=== PATIENT | male | born 1965 | race Caucasian/White ===

== ENCOUNTER 2017-08-20 09:23 | Day surgery (SDC) | payer BC ==
[2017-08-19 12:51] VITALS: BMI 31.8
[2017-08-20 09:38] LABS: HEMATOCRIT 42.7 % (35.4-49); MCH 28.9 pg (25.7-33.7); MCHC 32.7 g/dl (32.0-35.9); MEAN CELL VOLUME 88.2 fl (80-96); MEAN PLT VOLUME 7.6 fl (7.5-11.1); PLATELET COUNT 229 K/MM3 (134-434); RBC 4.84 M/mm3 (4.00-5.60); RDW 13.7 % (11.9-15.9); WHITE BLOOD COUNT 8.3 K/mm3 (4.0-10.0)
[2017-08-20 10:15] LABS: INR 0.98 (0.82-1.09); PROTHROMBIN TIME (PATIENT) 11.1 SEC (9.98-11.88)
[2017-08-20 10:21] VITALS: TEMP 98.5
[2017-08-20 16:12] VITALS: BP 135/75; PULSE 67
--- NOTE | 2017-08-21 17:25 | PATH ---
Surgical Pathology Report Patient Name: PLACIDO SCHROEDER [facility]. Rec. #: [id number] /Age/Gender: 1965 (Age: 52) / M Account: [id number] Location: RADIOLOGY CAT S Taken: 08/20/2017 Received: 08/20/2017 Reported: 08/21/2017 Physicians: Alexey Ewing M.D. Specimen(s) Received LIVER BIOPSY Clinical History 52-year-old male with history of GB cancer status post resection now with liver mass Final Diagnosis LIVER, BIOPSY: ADENOCARCINOMA, MODERATELY DIFFERENTIATED, SEE COMMENT. Comment: Immunohistochemical stains performed and interpreted at [facility] show the tumor is positive for CK7 and CK20, compatible with known history of gallbladder carcinoma. Suggest clinical/radiologic correlation. Findings discussed with Dr. Kc. Electronically Signed Lisette Eddy M.D. Addendum Reported: 09/13/2017 Addendum Diagnosis PD-L1 performed and reported by [facility], [place], [place] ([id number]) shows the following: RESULTS: No PD-L1 expression Tumor proportion score (TPS) results: 0% See [facility] report ([id number]) for additional details. Lisette Eddy M.D. Addendum Reported: 09/16/2017 Addendum Diagnosis Immunohistochemical stains for MisMatch Repair Protein Analysis performed at [facility] in [place], [place] ([id number]) and interpreted at [facility] show the following: RESULTS: HMLH-1 INTACT NUCLEAR EXPRESSION HMSH-2 INTACT NUCLEAR EXPRESSION HMSH-6 INTACT NUCLEAR EXPRESSION PMS2 INTACT NUCLEAR EXPRESSION INTERPRETATION: No loss of nuclear expression of MMR proteins: low probability of microsatellite instability-high (MSI-H). Limited specimen for the interpretation (few glands). Suggest clinical/radiologic correlation. Lisette Eddy M.D. Gross Description Received in formalin labeled "liver tissue," are 2 peña, cylindrical portions of soft tissue measuring 1.4 and 1.6 cm in length and averaging 0.1 cm in diameter. The specimens are submitted in toto in one cassette. 08/20/201708/20/2017
== END 2017-08-20 16:15 | disposition home or self-care (01) ==
LOC: JRADIR 09:23
PROVIDERS: ATTEND Internal Medicine Hematology & Oncology
PROC: BF45ZZZ Ultrasonography of Liver (ICD-10-PCS; principal; 2017-08-20)
PROC: 0FB03ZX Excision of Liver, Percutaneous Approach, Diagnostic (ICD-10-PCS; 2017-08-20)
DX: C22.7 Other specified carcinomas of liver (principal); Z85.89 Personal history of malignant neoplasm of other organs and systems
CPT/HCPCS: 36415; 74150-TC; 76942-TC; 85027; 85610; 87899; 88305-TC; 88341-TC; 88342-TC

== ENCOUNTER 2017-10-14 07:25 | Day surgery (SDC) | payer BC ==
[~2017-10-14 07:25] MED LIST: DEXAMETHASONE SOD PHOSPHATE 10 MG/1 ML VIAL IVPUSH ONE; FOSAPREPITANT DIMEGLUMINE 150 MG in SODIUM CHLORIDE 150 ML IVPB ONE; GEMCITABINE HCL IV ONE; MAGNESIUM SULFATE IVPB ONE; MANNITOL IVPB ONE; PALONOSETRON HCL 0.25 MG/5 ML VIAL IVPUSH ONE; POTASSIUM CHLORIDE IVPB ONE; SODIUM CHLORIDE 1,000 ML IV ONE; SODIUM CHLORIDE IV ONE; [UNRECOGNIZED DRUG - OTHER] IVPB ONE
[2017-10-14] MEDS ORDERED: MAGNESIUM SULFATE IVPB ONE (08:00)
[2017-10-14] MEDS ORDERED: [UNRECOGNIZED DRUG - OTHER] IVPB ONE (08:00)
[2017-10-14] MEDS ORDERED: MANNITOL IVPB ONE (08:00)
[2017-10-14] MEDS ORDERED: POTASSIUM CHLORIDE IVPB ONE (08:00)
[2017-10-14] MEDS ORDERED: PALONOSETRON HCL 0.25 MG/5 ML VIAL IVPUSH ONE (10:00)
[2017-10-14] MEDS ORDERED: FOSAPREPITANT DIMEGLUMINE 150 MG in SODIUM CHLORIDE 150 ML IVPB ONE (10:00)
[2017-10-14] MEDS ORDERED: DEXAMETHASONE SOD PHOSPHATE 10 MG/1 ML VIAL IVPUSH ONE (10:00)
[2017-10-14] MEDS ORDERED: GEMCITABINE HCL IV ONE (11:00)
[2017-10-14] MEDS ORDERED: SODIUM CHLORIDE IV ONE (11:00)
[2017-10-14] MEDS ORDERED: SODIUM CHLORIDE 1,000 ML IV ONE (11:30)
[2017-10-14 11:34] LABS: BASO % 1.2 % (0-2.0); HEMATOCRIT 42.2 % (35.4-49); HEMOGLOBIN 14.1 GM/dL (11.7-16.9); LYMPH % 17.5 % (8-40); MCH 29.1 pg (25.7-33.7); MCHC 33.3 g/dl (32.0-35.9); MEAN CELL VOLUME 87.3 fl (80-96); MEAN PLT VOLUME 8.3 fl (7.5-11.1); MONO % 6.4 % (3.8-10.2); NEUT % 70.9 % (42.8-82.8); PLATELET COUNT 217 K/MM3 (134-434); RBC 4.84 M/mm3 (4.00-5.60); RDW 13.6 % (11.9-15.9)
[2017-10-14 12:03] LABS: ALBUMIN 3.7 g/dl (3.4-5.0); ANION GAP 6 (8-16); BILIRUBIN,DIRECT < 0.2 mg/dL (0.0-0.2); BILIRUBIN,TOTAL 0.3 mg/dL (0.2-1.0); BLOOD UREA NITROGEN 13 mg/dL (7-18); CALCIUM 8.8 mg/dL (8.5-10.1); CHLORIDE 104 mmol/L (98-107); CO2 27 mmol/L (21-32); GLUCOSE,RANDOM 299 mg/dL (74-106); MAGNESIUM 2.1 mg/dL (1.8-2.4); POTASSIUM 4.2 mmol/L (3.5-5.1); SGOT/AST 14 U/L (15-37); SGPT/ALT 23 U/L (12-78); SODIUM 137 mmol/L (136-145); TOT PROT 7.7 g/dl (6.4-8.2)
[2017-10-14 12:04] LABS: ALK PHOS 122 U/L (45-117)
[2017-10-14 12:21] VITALS: BP 136/79; PULSE 75; TEMP 98.2
[2017-10-14] MEDS ORDERED: PALONOSETRON HCL 0.25 MG/5 ML VIAL IVPB ONE (14:45)
[2017-10-14] MEDS ORDERED: PORTA CATH FLUSH 10 ML IVPUSH ONE (19:02)
== END 2017-10-14 19:06 | disposition home or self-care (01) ==
LOC: JONCCHEMO 07:25 → J7W 12:02 → JONCCHEMO 19:06
PROVIDERS: ATTEND Internal Medicine Hematology & Oncology
PROC: 3E04305 Introduction of Other Antineoplastic into Central Vein, Percutaneous Approach (ICD-10-PCS; principal; 2017-10-14)
PROC: 3E043GC Introduction of Other Therapeutic Substance into Central Vein, Percutaneous Approach (ICD-10-PCS; 2017-10-14)
PROC: 3E0437Z Introduction of Electrolytic and Water Balance Substance into Central Vein, Percutaneous Approach (ICD-10-PCS; 2017-10-14)
DX: Z51.11 Encounter for antineoplastic chemotherapy (principal); C23 Malignant neoplasm of gallbladder
CPT/HCPCS: 36415; 80053; 80076; 83735; 85025; 86301; 96361; 96367; 96375; 96413; 96417; J1100; J1453; J2469

== ENCOUNTER 2017-10-15 07:33 | Day surgery (SDC) | payer BC ==
[2017-10-15 08:34] VITALS: BP 133/84; PULSE 102
[2017-10-15 08:37] VITALS: TEMP 98
[2017-10-15] MEDS ORDERED: D5-NS + 20 MEQ KCL - 20 MEQ/1,000 ML INFUS.BAG IV SCH (08:45)
[2017-10-15] MEDS ORDERED: MAGNESIUM SULF 50% (8.12 MEQ/2 ML-1 GM VIAL) IVPB SCH (08:45)
[2017-10-15] MEDS ORDERED: PORTA CATH FLUSH 10 ML IVPUSH ONE ×2 (09:56→13:59)
== END 2017-10-15 14:02 | disposition home or self-care (01) ==
LOC: JONCNONCHE 07:33 → J7W 08:27 → JONCNONCHE 14:02
PROVIDERS: ATTEND Internal Medicine Hematology & Oncology
PROC: 3E033GC Introduction of Other Therapeutic Substance into Peripheral Vein, Percutaneous Approach (ICD-10-PCS; principal; 2017-10-15)
PROC: 3E0337Z Introduction of Electrolytic and Water Balance Substance into Peripheral Vein, Percutaneous Approach (ICD-10-PCS; 2017-10-15)
DX: C23 Malignant neoplasm of gallbladder (principal)
CPT/HCPCS: 96360; 96361; 96374

== ENCOUNTER 2017-10-23 07:32 | Day surgery (SDC) | payer BC ==
[2017-10-23] MEDS ORDERED: MANNITOL IVPB ONE (10:00)
[2017-10-23] MEDS ORDERED: [UNRECOGNIZED DRUG - OTHER] IVPB ONE (10:00)
[2017-10-23] MEDS ORDERED: MAGNESIUM SULFATE IVPB ONE (10:00)
[2017-10-23] MEDS ORDERED: POTASSIUM CHLORIDE IVPB ONE (10:00)
[2017-10-23 10:48] LABS: BASO % 0.8 % (0-2.0); EOS % 6.8 % (0-4.5); HEMATOCRIT 38.5 % (35.4-49); HEMOGLOBIN 12.7 GM/dL (11.7-16.9); LYMPH % 20.5 % (8-40); MCH 29.1 pg (25.7-33.7); MEAN CELL VOLUME 88.1 fl (80-96); MONO % 6.8 % (3.8-10.2); NEUT % 65.1 % (42.8-82.8); PLATELET COUNT 137 K/MM3 (134-434); RBC 4.37 M/mm3 (4.00-5.60); RDW 13.5 % (11.9-15.9); WHITE BLOOD COUNT 6.8 K/mm3 (4.0-10.0)
[2017-10-23 11:13] LABS: ALBUMIN 3.6 g/dl (3.4-5.0); ALK PHOS 121 U/L (45-117); ANION GAP 9 (8-16); BILIRUBIN,DIRECT < 0.2 mg/dL (0.0-0.2); BILIRUBIN,TOTAL 0.2 mg/dL (0.2-1.0); BLOOD UREA NITROGEN 11 mg/dL (7-18); CALCIUM 8.2 mg/dL (8.5-10.1); CHLORIDE 103 mmol/L (98-107); CO2 26 mmol/L (21-32); CREATININE 0.8 mg/dL (0.7-1.3); GLUCOSE,RANDOM 263 mg/dL (74-106); MAGNESIUM 1.8 mg/dL (1.8-2.4); POTASSIUM 4.2 mmol/L (3.5-5.1); SGOT/AST 19 U/L (15-37); SGPT/ALT 32 U/L (12-78); SODIUM 138 mmol/L (136-145); TOT PROT 7.2 g/dl (6.4-8.2)
[2017-10-23] MEDS ORDERED: FOSAPREPITANT DIMEGLUMINE 150 MG in SODIUM CHLORIDE 150 ML IVPB ONE (12:00)
[2017-10-23] MEDS ORDERED: DEXAMETHASONE SOD PHOSPHATE 10 MG/1 ML VIAL IVPUSH ONE (12:00)
[2017-10-23] MEDS ORDERED: PALONOSETRON HCL 0.25 MG/5 ML VIAL IVPUSH ONE (12:00)
[2017-10-23] MEDS ORDERED: SODIUM CHLORIDE IV ONE ×2 (12:30→13:00)
[2017-10-23] MEDS ORDERED: CISPLATIN IV ONE (12:30)
[2017-10-23] MEDS ORDERED: GEMCITABINE HCL IV ONE (13:00)
[2017-10-23] MEDS ORDERED: SODIUM CHLORIDE 1,000 ML IV ONE (13:30)
[2017-10-23] MEDS ORDERED: D5-NS + 20 MEQ KCL - 20 MEQ/1,000 ML INFUS.BAG IV SCH (14:00)
[2017-10-23] MEDS ORDERED: MAGNESIUM SULF 50% (8.12 MEQ/2 ML-1 GM VIAL) IVPB ONE (14:00)
[2017-10-23] MEDS ORDERED: POTASSIUM CHLORIDE 20 MEQ, MAGNESIUM SULFATE 1 GM in DEXTROSE 5%-NORMAL SALINE 1,000 ML IVPB SCH (15:00)
[2017-10-23 18:55] VITALS: PULSE 68; TEMP 98.3
[2017-10-23 19:37] VITALS: BP 127/74
[2017-10-23] MEDS ORDERED: PORTA CATH FLUSH 10 ML IVPUSH ONE (19:37)
== END 2017-10-23 19:30 | disposition home or self-care (01) ==
LOC: JONCCHEMO 07:32 → J7W 11:48 → JONCCHEMO 19:30
PROVIDERS: ATTEND Internal Medicine Hematology & Oncology
DX: Z51.11 Encounter for antineoplastic chemotherapy (principal); C23 Malignant neoplasm of gallbladder
CPT/HCPCS: 36415; 80053; 80076; 83735; 85025; 96361; 96367; 96375; 96413; 96417; J1453; J2469

== ENCOUNTER 2017-10-24 07:28 | Day surgery (SDC) | payer BC ==
[2017-10-24] MEDS ORDERED: PEGFILGRASTIM 6 MG/0.6 ML DISP.SYRIN SQ ONE (10:00)
[2017-10-24] MEDS ORDERED: MAGNESIUM SULF 50% (8.12 MEQ/2 ML-1 GM VIAL) ONE (12:19)
[2017-10-24] MEDS ORDERED: POTASSIUM CHLORIDE IVPB ONE (12:30)
[2017-10-24] MEDS ORDERED: MAGNESIUM SULFATE IVPB ONE (12:30)
[2017-10-24] MEDS ORDERED: SODIUM CHLORIDE IVPB ONE (12:30)
[2017-10-24] MEDS ORDERED: PORTA CATH FLUSH 10 ML IVPUSH ONE (16:16)
[2017-10-24 16:50] VITALS: BP 126/70; PULSE 86; TEMP 98.7
== END 2017-10-24 17:05 | disposition home or self-care (01) ==
LOC: JONCNONCHE 07:28 → J7W 12:14 → JONCNONCHE 17:05
PROVIDERS: ATTEND Internal Medicine Hematology & Oncology
PROC: 3E013GC Introduction of Other Therapeutic Substance into Subcutaneous Tissue, Percutaneous Approach (ICD-10-PCS; principal; 2017-10-24)
PROC: 3E0337Z Introduction of Electrolytic and Water Balance Substance into Peripheral Vein, Percutaneous Approach (ICD-10-PCS; 2017-10-24)
DX: C23 Malignant neoplasm of gallbladder (principal); Z76.89 Persons encountering health services in other specified circumstances
CPT/HCPCS: 96360; 96361; 96372; J2505

== ENCOUNTER 2017-11-04 07:26 | Day surgery (SDC) | payer BC ==
[2017-11-04] MEDS ORDERED: MANNITOL IVPB ONE (08:00)
[2017-11-04] MEDS ORDERED: [UNRECOGNIZED DRUG - OTHER] IVPB ONE (08:00)
[2017-11-04] MEDS ORDERED: POTASSIUM CHLORIDE IVPB ONE (08:00)
[2017-11-04] MEDS ORDERED: MAGNESIUM SULFATE IVPB ONE (08:00)
[2017-11-04] MEDS ORDERED: FOSAPREPITANT DIMEGLUMINE 150 MG in SODIUM CHLORIDE 145 ML IVPB ONE (10:00)
[2017-11-04] MEDS ORDERED: PALONOSETRON HCL 0.25 MG/5 ML VIAL IVPUSH ONE (10:00)
[2017-11-04] MEDS ORDERED: DEXAMETHASONE SOD PHOSPHATE 10 MG/1 ML VIAL IVPUSH ONE (10:00)
[2017-11-04 10:05] LABS: BASO % 0.5 % (0-2.0); EOS % 0.6 % (0-4.5); HEMATOCRIT 38.5 % (35.4-49); HEMOGLOBIN 12.7 GM/dL (11.7-16.9); LYMPH % 11.5 % (8-40); MCH 29.2 pg (25.7-33.7); MEAN CELL VOLUME 88.4 fl (80-96); MEAN PLT VOLUME 7.8 fl (7.5-11.1); MONO % 5.6 % (3.8-10.2); NEUT % 81.8 % (42.8-82.8); PLATELET COUNT 192 K/MM3 (134-434); RBC 4.35 M/mm3 (4.00-5.60); RDW 13.6 % (11.9-15.9); WHITE BLOOD COUNT 15.7 K/mm3 (4.0-10.0)
[2017-11-04] MEDS ORDERED: SODIUM CHLORIDE IV ONE (10:30)
[2017-11-04] MEDS ORDERED: GEMCITABINE HCL IV ONE (10:30)
[2017-11-04 10:46] LABS: ALK PHOS 170 U/L (45-117); BILIRUBIN,TOTAL 0.3 mg/dL (0.2-1.0); CHLORIDE 102 mmol/L (98-107); POTASSIUM 4.1 mmol/L (3.5-5.1); SGPT/ALT 31 U/L (12-78); SODIUM 139 mmol/L (136-145)
[2017-11-04 10:52] LABS: ALBUMIN 3.6 g/dl (3.4-5.0); ANION GAP 10 (8-16); BILIRUBIN,DIRECT < 0.2 mg/dL (0.0-0.2); BLOOD UREA NITROGEN 13 mg/dL (7-18); CALCIUM 8.2 mg/dL (8.5-10.1); CO2 27 mmol/L (21-32); MAGNESIUM 1.6 mg/dL (1.8-2.4); SGOT/AST 17 U/L (15-37)
[2017-11-04 10:57] LABS: GLUCOSE,RANDOM 312 mg/dL (74-106)
[2017-11-04] MEDS ORDERED: SODIUM CHLORIDE 1,000 ML IV ONE (11:30)
[2017-11-04] MEDS ORDERED: INSULIN (NOVOLOG) ASPART 100 UNITS/ML 10ML VIAL SQ ONE (12:30)
[2017-11-04] MEDS ORDERED: PORTA CATH FLUSH 10 ML IVPUSH ONE (16:22)
[2017-11-04 16:23] VITALS: TEMP 98.5
[2017-11-04 16:48] VITALS: BP 110/67; PULSE 74
== END 2017-11-04 16:50 | disposition home or self-care (01) ==
LOC: JONCCHEMO 07:26 → J7W 10:38 → JONCCHEMO 16:50
PROVIDERS: ATTEND Internal Medicine Hematology & Oncology
DX: Z51.11 Encounter for antineoplastic chemotherapy (principal); C23 Malignant neoplasm of gallbladder; E11.9 Type 2 diabetes mellitus without complications; Z79.4 Long term (current) use of insulin
CPT/HCPCS: 36415; 80053; 80076; 82962; 83735; 85025; 96361; 96367; 96375; 96413; 96417; J1100; J1453; J2469

== ENCOUNTER 2017-11-05 07:35 | Day surgery (SDC) | payer BC ==
[2017-11-05 10:11] VITALS: TEMP 98.1
[2017-11-05] MEDS ORDERED: PORTA CATH FLUSH 10 ML IVPUSH ONE (10:11)
[2017-11-05] MEDS ORDERED: MAGNESIUM SULF 50% (8.12 MEQ/2 ML-1 GM VIAL) ONE (10:30)
[2017-11-05] MEDS ORDERED: POTASSIUM CHLORIDE IVPB SCH (10:45)
[2017-11-05] MEDS ORDERED: DEXTROSE 5% IVPB SCH (10:45)
[2017-11-05] MEDS ORDERED: NORMAL SALINE IVPB SCH (10:45)
[2017-11-05] MEDS ORDERED: MAGNESIUM SULFATE IVPB SCH (10:45)
[2017-11-05 14:57] VITALS: BP 128/67; PULSE 77
== END 2017-11-05 15:00 | disposition home or self-care (01) ==
LOC: JONCNONCHE 07:35 → J7W 09:56 → JONCNONCHE 15:00
PROVIDERS: ATTEND Internal Medicine Hematology & Oncology
PROC: 3E043GC Introduction of Other Therapeutic Substance into Central Vein, Percutaneous Approach (ICD-10-PCS; principal; 2017-11-05)
DX: C23 Malignant neoplasm of gallbladder (principal); E11.9 Type 2 diabetes mellitus without complications; Z79.4 Long term (current) use of insulin
CPT/HCPCS: 96365; 96366

== ENCOUNTER 2017-11-11 07:34 | Day surgery (SDC) | payer BC ==
[2017-11-11] MEDS ORDERED: [UNRECOGNIZED DRUG - OTHER] IVPB ONE (08:00)
[2017-11-11] MEDS ORDERED: MANNITOL IVPB ONE (08:00)
[2017-11-11] MEDS ORDERED: MAGNESIUM SULFATE IVPB ONE (08:00)
[2017-11-11] MEDS ORDERED: POTASSIUM CHLORIDE IVPB ONE (08:00)
[2017-11-11 09:30] VITALS: TEMP 97.9
[2017-11-11] MEDS ORDERED: PALONOSETRON HCL 0.25 MG/5 ML VIAL IVPUSH ONE (09:30)
[2017-11-11] MEDS ORDERED: FOSAPREPITANT DIMEGLUMINE 150 MG in SODIUM CHLORIDE 145 ML IVPB ONE (09:30)
[2017-11-11] MEDS ORDERED: DEXAMETHASONE SOD PHOSPHATE 10 MG/1 ML VIAL IVPUSH ONE (09:30)
[2017-11-11 09:49] LABS: HEMATOCRIT 39.1 % (35.4-49); HEMOGLOBIN 13.1 GM/dL (11.7-16.9); MCH 29.7 pg (25.7-33.7); MCHC 33.5 g/dl (32.0-35.9); MEAN CELL VOLUME 88.5 fl (80-96); MEAN PLT VOLUME 7.4 fl (7.5-11.1); PLATELET COUNT 354 K/MM3 (134-434); RBC 4.42 M/mm3 (4.00-5.60); RDW 14.1 % (11.9-15.9); WHITE BLOOD COUNT 11.3 K/mm3 (4.0-10.0)
[2017-11-11] MEDS ORDERED: GEMCITABINE HCL IV ONE (10:00)
[2017-11-11] MEDS ORDERED: SODIUM CHLORIDE IV ONE (10:00)
[2017-11-11 10:12] LABS: ALBUMIN 4.1 g/dl (3.4-5.0); ANION GAP 11 (8-16); BILIRUBIN,DIRECT < 0.2 mg/dL (0.0-0.2); BILIRUBIN,TOTAL 0.3 mg/dL (0.2-1.0); BLOOD UREA NITROGEN 13 mg/dL (7-18); CALCIUM 8.9 mg/dL (8.5-10.1); CHLORIDE 101 mmol/L (98-107); CO2 24 mmol/L (21-32); CREATININE 0.9 mg/dL (0.7-1.3); GLUCOSE,RANDOM 298 mg/dL (74-106); MAGNESIUM 1.7 mg/dL (1.8-2.4); POTASSIUM 4.4 mmol/L (3.5-5.1); SGOT/AST 19 U/L (15-37); SGPT/ALT 35 U/L (12-78); SODIUM 136 mmol/L (136-145); TOT PROT 7.7 g/dl (6.4-8.2)
[2017-11-11 10:13] LABS: ALK PHOS 150 U/L (45-117)
[2017-11-11 10:16] LABS: PLATELET ESTIMATE ADEQUATE
[2017-11-11] MEDS ORDERED: SODIUM CHLORIDE 1,000 ML IV ONE (11:00)
[2017-11-11] MEDS ORDERED: INSULIN SLIDING SCALE (NOVOLOG) 1 VIAL SQ ONE (13:00)
[2017-11-11] MEDS ORDERED: PORTA CATH FLUSH 10 ML IVPUSH ONE (15:30)
[2017-11-11 17:49] VITALS: BP 131/75; PULSE 77
== END 2017-11-11 17:52 | disposition home or self-care (01) ==
LOC: JONCCHEMO 07:34 → J7W 10:29 → JONCCHEMO 17:52
PROVIDERS: ATTEND Internal Medicine Hematology & Oncology
DX: Z51.11 Encounter for antineoplastic chemotherapy (principal); C23 Malignant neoplasm of gallbladder; E11.9 Type 2 diabetes mellitus without complications; Z79.4 Long term (current) use of insulin
CPT/HCPCS: 36415; 80053; 80076; 82962; 83735; 85025; 96361; 96367; 96375; 96413; 96417; J1100; J1453; J2469

== ENCOUNTER 2017-11-12 07:36 | Day surgery (SDC) | payer BC ==
[2017-11-12] MEDS ORDERED: PEGFILGRASTIM 6 MG/0.6 ML DISP.SYRIN SQ ONE (08:00)
[2017-11-12] MEDS ORDERED: SODIUM CHLORIDE 1,000 ML IV SCH (11:35)
[2017-11-12 13:01] VITALS: TEMP 98.4
[2017-11-12 16:54] VITALS: BP 112/75; PULSE 72
[2017-11-12] MEDS ORDERED: PORTA CATH FLUSH 10 ML IVPUSH ONE (16:56)
== END 2017-11-12 15:45 | disposition home or self-care (01) ==
LOC: JONCCHEMO 07:36 → J7W 11:41 → JONCCHEMO 15:45
PROVIDERS: ATTEND Internal Medicine Hematology & Oncology
PROC: 3E013GC Introduction of Other Therapeutic Substance into Subcutaneous Tissue, Percutaneous Approach (ICD-10-PCS; principal; 2017-11-12)
DX: C23 Malignant neoplasm of gallbladder (principal); E11.9 Type 2 diabetes mellitus without complications; Z79.4 Long term (current) use of insulin; Z76.89 Persons encountering health services in other specified circumstances
CPT/HCPCS: 96361; 96372; J2505

== ENCOUNTER 2017-12-04 07:36 | Day surgery (SDC) | payer BC ==
[2017-12-04] MEDS ORDERED: MAGNESIUM SULFATE IVPB ONE (09:00)
[2017-12-04] MEDS ORDERED: [UNRECOGNIZED DRUG - OTHER] IVPB ONE (09:00)
[2017-12-04] MEDS ORDERED: MANNITOL IVPB ONE (09:00)
[2017-12-04] MEDS ORDERED: POTASSIUM CHLORIDE IVPB ONE (09:00)
[2017-12-04 09:39] LABS: BASO % 1.4 % (0-2.0); EOS % 7.9 % (0-4.5); HEMATOCRIT 34.7 % (35.4-49); HEMOGLOBIN 11.6 GM/dL (11.7-16.9); LYMPH % 25.4 % (8-40); MCH 30.6 pg (25.7-33.7); MCHC 33.4 g/dl (32.0-35.9); MEAN CELL VOLUME 91.6 fl (80-96); MEAN PLT VOLUME 7.5 fl (7.5-11.1); MONO % 8.9 % (3.8-10.2); NEUT % 56.4 % (42.8-82.8); PLATELET COUNT 223 K/MM3 (134-434); RBC 3.79 M/mm3 (4.00-5.60); RDW 17.4 % (11.9-15.9)
[2017-12-04 10:02] LABS: ANION GAP 7 (8-16); BILIRUBIN,DIRECT < 0.2 mg/dL (0.0-0.2); BLOOD UREA NITROGEN 14 mg/dL (7-18); CALCIUM 8.6 mg/dL (8.5-10.1); CHLORIDE 105 mmol/L (98-107); CO2 27 mmol/L (21-32); CREATININE 0.8 mg/dL (0.7-1.3); GLUCOSE,RANDOM 109 mg/dL (74-106); MAGNESIUM 1.8 mg/dL (1.8-2.4); POTASSIUM 4.1 mmol/L (3.5-5.1); SGOT/AST 19 U/L (15-37); SGPT/ALT 24 U/L (12-78); SODIUM 139 mmol/L (136-145)
[2017-12-04 10:03] LABS: ALK PHOS 118 U/L (45-117); BILIRUBIN,TOTAL 0.4 mg/dL (0.2-1.0); TOT PROT 7.5 g/dl (6.4-8.2)
[2017-12-04] MEDS ORDERED: PALONOSETRON HCL 0.25 MG/5 ML VIAL IVPUSH ONE (11:00)
[2017-12-04] MEDS ORDERED: FOSAPREPITANT DIMEGLUMINE 150 MG in SODIUM CHLORIDE 150 ML IVPB ONE (11:00)
[2017-12-04] MEDS ORDERED: DEXAMETHASONE SOD PHOSPHATE 10 MG/1 ML VIAL IVPUSH ONE (11:00)
[2017-12-04] MEDS ORDERED: GEMCITABINE HCL IV ONE (12:00)
[2017-12-04] MEDS ORDERED: SODIUM CHLORIDE IV ONE (12:00)
[2017-12-04] MEDS ORDERED: SODIUM CHLORIDE 1,000 ML IV ONE (16:00)
[2017-12-04 18:57] VITALS: TEMP 97.9
[2017-12-04 19:04] VITALS: BP 134/75; PULSE 81
[2017-12-04] MEDS ORDERED: PORTA CATH FLUSH 10 ML IVPUSH ONE (19:04)
== END 2017-12-04 18:20 | disposition home or self-care (01) ==
LOC: JONCCHEMO 07:36 → J7W 10:12 → JONCCHEMO 18:20
PROVIDERS: ATTEND Internal Medicine Hematology & Oncology
PROC: 3E04305 Introduction of Other Antineoplastic into Central Vein, Percutaneous Approach (ICD-10-PCS; principal; 2017-12-04)
PROC: 3E043GC Introduction of Other Therapeutic Substance into Central Vein, Percutaneous Approach (ICD-10-PCS; 2017-12-04)
PROC: 3E0437Z Introduction of Electrolytic and Water Balance Substance into Central Vein, Percutaneous Approach (ICD-10-PCS; 2017-12-04)
DX: Z51.11 Encounter for antineoplastic chemotherapy (principal); C23 Malignant neoplasm of gallbladder
CPT/HCPCS: 36415; 80053; 80076; 83735; 85025; 96361; 96367; 96375; 96413; 96417; J1100; J1453; J2469

== ENCOUNTER 2017-12-05 07:31 | Day surgery (SDC) | payer BC ==
[2017-12-05] MEDS ORDERED: PEGFILGRASTIM 6 MG/0.6 ML DISP.SYRIN SQ ONE (10:00)
[2017-12-05 18:35] VITALS: TEMP 97.5
[2017-12-05 18:36] VITALS: BP 133/72; PULSE 76
== END 2017-12-05 18:39 | disposition home or self-care (01) ==
LOC: JONCCHEMO 07:31
PROVIDERS: ATTEND Internal Medicine Hematology & Oncology
PROC: 3E013GC Introduction of Other Therapeutic Substance into Subcutaneous Tissue, Percutaneous Approach (ICD-10-PCS; principal; 2017-12-05)
DX: C23 Malignant neoplasm of gallbladder (principal)
CPT/HCPCS: 96372; J2505

== ENCOUNTER 2017-12-16 07:35 | Day surgery (SDC) | payer BC ==
[2017-12-16] MEDS ORDERED: POTASSIUM CHLORIDE IVPB ONE (08:00)
[2017-12-16] MEDS ORDERED: MAGNESIUM SULFATE IVPB ONE (08:00)
[2017-12-16] MEDS ORDERED: [UNRECOGNIZED DRUG - OTHER] IVPB ONE (08:00)
[2017-12-16] MEDS ORDERED: MANNITOL IVPB ONE (08:00)
[2017-12-16 09:31] LABS: BASO % 0.6 % (0-2.0); EOS % 1.1 % (0-4.5); HEMATOCRIT 33.5 % (35.4-49); HEMOGLOBIN 11.6 GM/dL (11.7-16.9); MCH 32.1 pg (25.7-33.7); MCHC 34.5 g/dl (32.0-35.9); MEAN CELL VOLUME 93.3 fl (80-96); MEAN PLT VOLUME 7.6 fl (7.5-11.1); MONO % 7.5 % (3.8-10.2); NEUT % 79.8 % (42.8-82.8); PLATELET COUNT 189 K/MM3 (134-434); RDW 19.2 % (11.9-15.9); WHITE BLOOD COUNT 11.7 K/mm3 (4.0-10.0)
[2017-12-16 10:00] LABS: ALBUMIN 3.7 g/dl (3.4-5.0); ALK PHOS 155 U/L (45-117); ANION GAP 6 (8-16); BILIRUBIN,DIRECT < 0.2 mg/dL (0.0-0.2); BILIRUBIN,TOTAL 0.3 mg/dL (0.2-1.0); BLOOD UREA NITROGEN 11 mg/dL (7-18); CHLORIDE 108 mmol/L (98-107); CO2 25 mmol/L (21-32); CREATININE 0.8 mg/dL (0.7-1.3); GLUCOSE,RANDOM 113 mg/dL (74-106); MAGNESIUM 1.7 mg/dL (1.8-2.4); POTASSIUM 4.1 mmol/L (3.5-5.1); SGOT/AST 16 U/L (15-37); SGPT/ALT 21 U/L (12-78); SODIUM 139 mmol/L (136-145); TOT PROT 6.9 g/dl (6.4-8.2)
[2017-12-16] MEDS ORDERED: DEXAMETHASONE SOD PHOSPHATE 10 MG/1 ML VIAL IVPUSH ONE (10:00)
[2017-12-16] MEDS ORDERED: PALONOSETRON HCL 0.25 MG/5 ML VIAL IVPUSH ONE (10:00)
[2017-12-16] MEDS ORDERED: FOSAPREPITANT DIMEGLUMINE 150 MG in SODIUM CHLORIDE 150 ML IVPB ONE (10:00)
[2017-12-16] MEDS ORDERED: SODIUM CHLORIDE IV ONE (11:00)
[2017-12-16] MEDS ORDERED: GEMCITABINE HCL IV ONE (11:00)
[2017-12-16] MEDS ORDERED: SODIUM CHLORIDE 1,000 ML IV ONE (11:30)
[2017-12-16 17:51] VITALS: TEMP 97.8
[2017-12-16 17:52] VITALS: BP 158/86; PULSE 86
== END 2017-12-16 17:50 | disposition home or self-care (01) ==
LOC: JONCCHEMO 07:35 → J7W 10:24 → JONCCHEMO 17:50
PROVIDERS: ATTEND Internal Medicine Hematology & Oncology
DX: Z51.11 Encounter for antineoplastic chemotherapy (principal); C23 Malignant neoplasm of gallbladder
CPT/HCPCS: 36415; 80053; 80076; 83735; 85025; 96361; 96367; 96375; 96413; 96417; J1100; J1453; J2469; J7030

== ENCOUNTER 2017-12-23 07:19 | Day surgery (SDC) | payer BC ==
[2017-12-23] MEDS ORDERED: MANNITOL IVPB ONE (08:00)
[2017-12-23] MEDS ORDERED: POTASSIUM CHLORIDE IVPB ONE (08:00)
[2017-12-23] MEDS ORDERED: MAGNESIUM SULFATE IVPB ONE (08:00)
[2017-12-23] MEDS ORDERED: [UNRECOGNIZED DRUG - OTHER] IVPB ONE (08:00)
[2017-12-23] MEDS ORDERED: PALONOSETRON HCL 0.25 MG/5 ML VIAL IVPUSH ONE (09:30)
[2017-12-23] MEDS ORDERED: DEXAMETHASONE SOD PHOSPHATE 10 MG/1 ML VIAL IVPUSH ONE (09:30)
[2017-12-23] MEDS ORDERED: FOSAPREPITANT DIMEGLUMINE 150 MG in SODIUM CHLORIDE 145 ML IVPB ONE (09:30)
[2017-12-23 09:42] LABS: HEMATOCRIT 33.4 % (35.4-49); HEMOGLOBIN 11.5 GM/dL (11.7-16.9); MCH 32.3 pg (25.7-33.7); MCHC 34.5 g/dl (32.0-35.9); MEAN CELL VOLUME 93.5 fl (80-96); MEAN PLT VOLUME 6.9 fl (7.5-11.1); PLATELET COUNT 323 K/MM3 (134-434); RBC 3.58 M/mm3 (4.00-5.60); RDW 17.9 % (11.9-15.9); WHITE BLOOD COUNT 6.4 K/mm3 (4.0-10.0)
[2017-12-23] MEDS ORDERED: GEMCITABINE HCL IV ONE (10:00)
[2017-12-23] MEDS ORDERED: SODIUM CHLORIDE IV ONE (10:00)
[2017-12-23 10:07] LABS: ALBUMIN 3.9 g/dl (3.4-5.0); ANION GAP 5 (8-16); BLOOD UREA NITROGEN 11 mg/dL (7-18); CALCIUM 8.2 mg/dL (8.5-10.1); CHLORIDE 105 mmol/L (98-107); CO2 29 mmol/L (21-32); CREATININE 0.7 mg/dL (0.7-1.3); GLUCOSE,RANDOM 108 mg/dL (74-106); POTASSIUM 4.2 mmol/L (3.5-5.1); SGOT/AST 14 U/L (15-37); SGPT/ALT 20 U/L (12-78); SODIUM 139 mmol/L (136-145)
[2017-12-23 10:08] LABS: ALK PHOS 130 U/L (45-117); BILIRUBIN,TOTAL 0.3 mg/dL (0.2-1.0); TOT PROT 7.1 g/dl (6.4-8.2)
[2017-12-23 10:43] LABS: BILIRUBIN,DIRECT < 0.2 mg/dL (0.0-0.2); MAGNESIUM 1.7 mg/dL (1.8-2.4)
[2017-12-23] MEDS ORDERED: SODIUM CHLORIDE 1,000 ML IV ONE (11:00)
[2017-12-23 12:41] LABS: ANISOCYTOSIS 2+; MACROCYTOSIS 1+; PLATELET ESTIMATE NORMAL
[2017-12-23 17:50] VITALS: BP 139/80; PULSE 80; TEMP 97.8
== END 2017-12-23 16:10 | disposition home or self-care (01) ==
LOC: JONCCHEMO 07:19 → J7W 10:00 → JONCCHEMO 16:10
PROVIDERS: ATTEND Internal Medicine Hematology & Oncology
DX: Z51.11 Encounter for antineoplastic chemotherapy (principal); C23 Malignant neoplasm of gallbladder
CPT/HCPCS: 36415; 80053; 80076; 83735; 85025; 96361; 96366; 96367; 96375; 96413; 96417; J1100; J1453; J2469; J7030

== ENCOUNTER 2017-12-24 07:27 | Day surgery (SDC) | payer BC ==
[2017-12-24] MEDS ORDERED: PEGFILGRASTIM 6 MG/0.6 ML DISP.SYRIN SQ ONE (08:00)
[2017-12-24 18:19] VITALS: BP 132/76; PULSE 76; TEMP 98
== END 2017-12-24 18:15 | disposition home or self-care (01) ==
LOC: JONCCHEMO 07:27 → J7W 17:55 → JONCCHEMO 18:15
PROVIDERS: ATTEND Internal Medicine Hematology & Oncology
PROC: 3E013GC Introduction of Other Therapeutic Substance into Subcutaneous Tissue, Percutaneous Approach (ICD-10-PCS; principal; 2017-12-24)
DX: C23 Malignant neoplasm of gallbladder (principal); Z76.89 Persons encountering health services in other specified circumstances
CPT/HCPCS: 96372; J2505

== ENCOUNTER 2018-01-06 07:35 | Day surgery (SDC) | payer BC ==
[2018-01-06] MEDS ORDERED: POTASSIUM CHLORIDE IVPB ONE (08:00)
[2018-01-06] MEDS ORDERED: MAGNESIUM SULFATE IVPB ONE (08:00)
[2018-01-06] MEDS ORDERED: [UNRECOGNIZED DRUG - OTHER] IVPB ONE (08:00)
[2018-01-06] MEDS ORDERED: MANNITOL IVPB ONE (08:00)
[2018-01-06] MEDS ORDERED: FOSAPREPITANT DIMEGLUMINE 150 MG in SODIUM CHLORIDE 145 ML IVPB ONE (09:30)
[2018-01-06] MEDS ORDERED: DEXAMETHASONE SOD PHOSPHATE 10 MG/1 ML VIAL IVPUSH ONE (09:30)
[2018-01-06] MEDS ORDERED: PALONOSETRON HCL 0.25 MG/5 ML VIAL IVPUSH ONE (09:30)
[2018-01-06 09:50] LABS: BASO % 0.4 % (0-2.0); EOS % 1.1 % (0-4.5); HEMATOCRIT 33.7 % (35.4-49); HEMOGLOBIN 11.4 GM/dL (11.7-16.9); LYMPH % 11.1 % (8-40); MCH 32.7 pg (25.7-33.7); MCHC 33.8 g/dl (32.0-35.9); MEAN CELL VOLUME 96.9 fl (80-96); MEAN PLT VOLUME 7.6 fl (7.5-11.1); MONO % 10.1 % (3.8-10.2); NEUT % 77.3 % (42.8-82.8); PLATELET COUNT 289 K/MM3 (134-434); RBC 3.48 M/mm3 (4.00-5.60); RDW 20.6 % (11.9-15.9); WHITE BLOOD COUNT 14.1 K/mm3 (4.0-10.0)
[2018-01-06] MEDS ORDERED: GEMCITABINE HCL IV ONE (10:00)
[2018-01-06] MEDS ORDERED: SODIUM CHLORIDE IV ONE (10:00)
[2018-01-06] MEDS ORDERED: PORTA CATH FLUSH 10 ML IVPUSH ONE (10:30)
[2018-01-06 10:31] VITALS: TEMP 98
[2018-01-06] MEDS ORDERED: SODIUM CHLORIDE 1,000 ML IV ONE (11:00)
[2018-01-06 11:33] LABS: ALBUMIN 3.9 g/dl (3.4-5.0); BILIRUBIN,DIRECT < 0.2 mg/dL (0.0-0.2); BILIRUBIN,TOTAL 0.3 mg/dL (0.2-1.0); MAGNESIUM 1.7 mg/dL (1.8-2.4); SGOT/AST 17 U/L (15-37); SGPT/ALT 17 U/L (12-78); TOT PROT 7.4 g/dl (6.4-8.2)
[2018-01-06 11:34] LABS: ALK PHOS 182 U/L (45-117)
[2018-01-06 11:55] LABS: ALK PHOS 188 U/L (45-117); ANION GAP 12 (8-16); BILIRUBIN,TOTAL 0.2 mg/dL (0.2-1.0); BLOOD UREA NITROGEN 9 mg/dL (7-18); CHLORIDE 106 mmol/L (98-107); CO2 22 mmol/L (21-32); CREATININE 0.8 mg/dL (0.7-1.3); GLUCOSE,RANDOM 116 mg/dL (74-106); POTASSIUM 4.4 mmol/L (3.5-5.1); SGOT/AST 16 U/L (15-37); SGPT/ALT 18 U/L (12-78); SODIUM 140 mmol/L (136-145); TOT PROT 7.5 g/dl (6.4-8.2)
[2018-01-06 12:19] LABS: CALCIUM 8.5 mg/dL (8.5-10.1)
[2018-01-06 16:10] VITALS: BP 131/76; PULSE 79
== END 2018-01-06 16:11 | disposition home or self-care (01) ==
LOC: JONCCHEMO 07:35 → J7W 11:10 → JONCCHEMO 16:11
PROVIDERS: ATTEND Internal Medicine Hematology & Oncology
DX: Z51.11 Encounter for antineoplastic chemotherapy (principal); C23 Malignant neoplasm of gallbladder
CPT/HCPCS: 36415; 80053; 80076; 83735; 85025; 96361; 96367; 96375; 96413; 96417; J1100; J1453; J2469; J7030

== ENCOUNTER 2018-01-13 07:12 | Day surgery (SDC) | payer BC ==
[2018-01-13] MEDS ORDERED: MANNITOL IVPB ONE (08:00)
[2018-01-13] MEDS ORDERED: POTASSIUM CHLORIDE IVPB ONE (08:00)
[2018-01-13] MEDS ORDERED: [UNRECOGNIZED DRUG - OTHER] IVPB ONE (08:00)
[2018-01-13] MEDS ORDERED: MAGNESIUM SULFATE IVPB ONE (08:00)
[2018-01-13 09:09] LABS: HEMATOCRIT 34.2 % (35.4-49); HEMOGLOBIN 11.8 GM/dL (11.7-16.9); MCH 33.7 pg (25.7-33.7); MCHC 34.6 g/dl (32.0-35.9); MEAN CELL VOLUME 97.3 fl (80-96); MEAN PLT VOLUME 6.9 fl (7.5-11.1); PLATELET COUNT 302 K/MM3 (134-434); RBC 3.51 M/mm3 (4.00-5.60); RDW 18.6 % (11.9-15.9); WHITE BLOOD COUNT 8.4 K/mm3 (4.0-10.0)
[2018-01-13 09:26] LABS: ALK PHOS 136 U/L (45-117); ANION GAP 8 (8-16); BILIRUBIN,DIRECT < 0.2 mg/dL (0.0-0.2); BILIRUBIN,TOTAL 0.1 mg/dL (0.2-1.0); BLOOD UREA NITROGEN 10 mg/dL (7-18); CALCIUM 9.3 mg/dL (8.5-10.1); CHLORIDE 106 mmol/L (98-107); CO2 24 mmol/L (21-32); CREATININE 0.8 mg/dL (0.7-1.3); GLUCOSE,RANDOM 114 mg/dL (74-106); MAGNESIUM 1.7 mg/dL (1.8-2.4); POTASSIUM 4.4 mmol/L (3.5-5.1); SGOT/AST 18 U/L (15-37); SGPT/ALT 27 U/L (12-78); SODIUM 138 mmol/L (136-145); TOT PROT 7.5 g/dl (6.4-8.2)
[2018-01-13] MEDS ORDERED: FOSAPREPITANT DIMEGLUMINE 150 MG in SODIUM CHLORIDE 145 ML IVPB ONE (09:30)
[2018-01-13] MEDS ORDERED: PALONOSETRON HCL 0.25 MG/5 ML VIAL IVPUSH ONE (09:30)
[2018-01-13] MEDS ORDERED: DEXAMETHASONE SOD PHOSPHATE 10 MG/1 ML VIAL IVPUSH ONE (09:30)
[2018-01-13] MEDS ORDERED: GEMCITABINE HCL IV ONE (10:00)
[2018-01-13] MEDS ORDERED: SODIUM CHLORIDE IV ONE (10:00)
[2018-01-13 10:29] LABS: ANISOCYTOSIS 2+; MACROCYTOSIS 2+; PLATELET ESTIMATE NORMAL
[2018-01-13] MEDS ORDERED: SODIUM CHLORIDE 1,000 ML IV ONE (11:00)
[2018-01-13] MEDS ORDERED: DEXAMETHASONE SOD PHOSPHATE 10 MG/1 ML VIAL ONE (12:59)
[2018-01-13 15:18] VITALS: TEMP 97.4
[2018-01-13 16:24] VITALS: BP 137/77; PULSE 80
== END 2018-01-13 16:25 | disposition home or self-care (01) ==
LOC: JONCCHEMO 07:12 → J7W 09:38 → JONCCHEMO 16:25
PROVIDERS: ATTEND Internal Medicine Hematology & Oncology
DX: Z51.11 Encounter for antineoplastic chemotherapy (principal); C23 Malignant neoplasm of gallbladder
CPT/HCPCS: 36415; 80053; 80076; 83735; 85025; 96361; 96367; 96375; 96413; 96417; J1100; J1453; J2469; J7030

== ENCOUNTER 2018-01-14 07:26 | Day surgery (SDC) | payer BC ==
[2018-01-14] MEDS ORDERED: PEGFILGRASTIM 6 MG/0.6 ML DISP.SYRIN SQ ONE (08:00)
[2018-01-14 18:17] VITALS: BP 127/73; PULSE 86; TEMP 97.5
== END 2018-01-14 18:21 | disposition home or self-care (01) ==
LOC: JONCCHEMO 07:26
PROVIDERS: ATTEND Internal Medicine Hematology & Oncology
PROC: 3E013GC Introduction of Other Therapeutic Substance into Subcutaneous Tissue, Percutaneous Approach (ICD-10-PCS; principal; 2018-01-14)
DX: C23 Malignant neoplasm of gallbladder (principal); Z76.89 Persons encountering health services in other specified circumstances
CPT/HCPCS: 96372; J2505

== ENCOUNTER 2018-01-27 07:43 | Day surgery (SDC) | payer BC ==
[2018-01-27] MEDS ORDERED: MAGNESIUM SULFATE IVPB ONE (08:00)
[2018-01-27] MEDS ORDERED: MANNITOL IVPB ONE (08:00)
[2018-01-27] MEDS ORDERED: [UNRECOGNIZED DRUG - OTHER] IVPB ONE (08:00)
[2018-01-27] MEDS ORDERED: POTASSIUM CHLORIDE IVPB ONE (08:00)
[2018-01-27 09:17] LABS: EOS % 1.1 % (0-4.5); HEMATOCRIT 31.5 % (35.4-49); HEMOGLOBIN 10.7 GM/dL (11.7-16.9); LYMPH % 14.6 % (8-40); MCH 33.5 pg (25.7-33.7); MCHC 33.9 g/dl (32.0-35.9); MEAN CELL VOLUME 98.8 fl (80-96); MEAN PLT VOLUME 7.3 fl (7.5-11.1); MONO % 9.6 % (3.8-10.2); NEUT % 73.7 % (42.8-82.8); PLATELET COUNT 264 K/MM3 (134-434); RBC 3.19 M/mm3 (4.00-5.60); RDW 18.6 % (11.9-15.9); WHITE BLOOD COUNT 8.4 K/mm3 (4.0-10.0)
[2018-01-27 09:43] LABS: ALBUMIN 3.6 g/dl (3.4-5.0); ALK PHOS 138 U/L (45-117); ANION GAP 5 (8-16); BILIRUBIN,DIRECT < 0.2 mg/dL (0.0-0.2); BILIRUBIN,TOTAL 0.1 mg/dL (0.2-1.0); BLOOD UREA NITROGEN 11 mg/dL (7-18); CALCIUM 8.7 mg/dL (8.5-10.1); CHLORIDE 107 mmol/L (98-107); CO2 28 mmol/L (21-32); CREATININE 0.8 mg/dL (0.7-1.3); GLUCOSE,RANDOM 114 mg/dL (74-106); MAGNESIUM 1.6 mg/dL (1.8-2.4); POTASSIUM 4.5 mmol/L (3.5-5.1); SGOT/AST 15 U/L (15-37); SGPT/ALT 18 U/L (12-78); SODIUM 140 mmol/L (136-145)
[2018-01-27] MEDS ORDERED: PALONOSETRON HCL 0.25 MG/5 ML VIAL IVPUSH ONE (10:00)
[2018-01-27] MEDS ORDERED: DEXAMETHASONE SOD PHOSPHATE 10 MG/1 ML VIAL IVPUSH ONE (10:00)
[2018-01-27] MEDS ORDERED: FOSAPREPITANT DIMEGLUMINE 150 MG in SODIUM CHLORIDE 150 ML IVPB ONE (10:00)
[2018-01-27] MEDS ORDERED: PORTA CATH FLUSH 10 ML IVPUSH ONE (10:23)
[2018-01-27 10:24] VITALS: TEMP 98
[2018-01-27] MEDS ORDERED: SODIUM CHLORIDE IV ONE (11:00)
[2018-01-27] MEDS ORDERED: GEMCITABINE HCL IV ONE (11:00)
[2018-01-27] MEDS ORDERED: SODIUM CHLORIDE 1,000 ML IV ONE (11:30)
[2018-01-27] MEDS ORDERED: MAGNESIUM 1GM/D5W - 1 GM/100 ML IVPB IVPB ONE (12:00)
[2018-01-27] MEDS ORDERED: MAGNESIUM SULF 50% (8.12 MEQ/2 ML-1 GM VIAL) ONE (12:40)
[2018-01-27 17:09] VITALS: BP 139/79; PULSE 74
== END 2018-01-27 21:38 | disposition home or self-care (01) ==
LOC: JONCCHEMO 07:43 → J7W 09:40 → JONCCHEMO 21:38
PROVIDERS: ATTEND Internal Medicine Hematology & Oncology
DX: Z51.11 Encounter for antineoplastic chemotherapy (principal); C23 Malignant neoplasm of gallbladder
CPT/HCPCS: 36415; 80053; 80076; 83735; 85025; 96361; 96367; 96375; 96413; 96417; J1100; J1453; J2469; J7030

== ENCOUNTER 2018-02-03 07:35 | Day surgery (SDC) | payer BC ==
[2018-02-03] MEDS ORDERED: POTASSIUM CHLORIDE IVPB ONE (08:00)
[2018-02-03] MEDS ORDERED: [UNRECOGNIZED DRUG - OTHER] IVPB ONE (08:00)
[2018-02-03] MEDS ORDERED: MANNITOL IVPB ONE (08:00)
[2018-02-03] MEDS ORDERED: MAGNESIUM SULFATE IVPB ONE (08:00)
[2018-02-03 09:41] LABS: HEMATOCRIT 28.9 % (35.4-49); MCH 34.2 pg (25.7-33.7); MCHC 34.6 g/dl (32.0-35.9); MEAN CELL VOLUME 98.9 fl (80-96); MEAN PLT VOLUME 6.9 fl (7.5-11.1); PLATELET COUNT 274 K/MM3 (134-434); RBC 2.92 M/mm3 (4.00-5.60); RDW 16.7 % (11.9-15.9); WHITE BLOOD COUNT 6.7 K/mm3 (4.0-10.0)
[2018-02-03] MEDS ORDERED: FOSAPREPITANT DIMEGLUMINE 150 MG in SODIUM CHLORIDE 150 ML IVPB ONE (10:00)
[2018-02-03] MEDS ORDERED: DEXAMETHASONE INJECTION 10 MG in SODIUM CHLORIDE 50 ML IVPB ONE (10:00)
[2018-02-03] MEDS ORDERED: PALONOSETRON HCL 0.25 MG/5 ML VIAL IVPUSH ONE (10:00)
[2018-02-03 10:17] LABS: ALBUMIN 3.7 g/dl (3.4-5.0); ALK PHOS 116 U/L (45-117); ANION GAP 5 (8-16); BILIRUBIN,DIRECT < 0.2 mg/dL (0.0-0.2); BILIRUBIN,TOTAL 0.2 mg/dL (0.2-1.0); BLOOD UREA NITROGEN 12 mg/dL (7-18); CALCIUM 8.2 mg/dL (8.5-10.1); CHLORIDE 108 mmol/L (98-107); CO2 27 mmol/L (21-32); CREATININE 0.7 mg/dL (0.7-1.3); GLUCOSE,RANDOM 124 mg/dL (74-106); MAGNESIUM 1.7 mg/dL (1.8-2.4); POTASSIUM 4.6 mmol/L (3.5-5.1); SGOT/AST 19 U/L (15-37); SGPT/ALT 20 U/L (12-78); SODIUM 140 mmol/L (136-145); TOT PROT 6.7 g/dl (6.4-8.2)
[2018-02-03] MEDS ORDERED: GEMCITABINE HCL IV ONE (11:00)
[2018-02-03] MEDS ORDERED: SODIUM CHLORIDE IV ONE (11:00)
[2018-02-03] MEDS ORDERED: SODIUM CHLORIDE 1,000 ML IV ONE (11:30)
[2018-02-03 13:05] LABS: PLATELET ESTIMATE NORMAL
[2018-02-03 14:37] VITALS: BP 139/77; PULSE 67; TEMP 98.1
[2018-02-03] MEDS ORDERED: PORTA CATH FLUSH 10 ML IVPUSH ONE (14:49)
== END 2018-02-03 17:44 | disposition home or self-care (01) ==
LOC: JONCCHEMO 07:35 → J7W 10:16 → JONCCHEMO 17:44
PROVIDERS: ATTEND Internal Medicine Hematology & Oncology
DX: Z51.11 Encounter for antineoplastic chemotherapy (principal); C23 Malignant neoplasm of gallbladder
CPT/HCPCS: 36415; 80048; 80076; 83735; 85025; 86301; 96361; 96367; 96375; 96413; 96417; J1100; J1453; J2469; J7030

== ENCOUNTER → 2018-02-04 | Day surgery (SDC) | payer BC ==
[~2018-02-04] MED LIST changes: -DEXAMETHASONE SOD PHOSPHATE 10 MG/1 ML VIAL IVPUSH ONE; -FOSAPREPITANT DIMEGLUMINE 150 MG in SODIUM CHLORIDE 150 ML IVPB ONE; -GEMCITABINE HCL IV ONE; -MAGNESIUM SULFATE IVPB ONE; -MANNITOL IVPB ONE; -PALONOSETRON HCL 0.25 MG/5 ML VIAL IVPUSH ONE; +PEGFILGRASTIM 6 MG/0.6 ML DISP.SYRIN SQ ONE; -POTASSIUM CHLORIDE IVPB ONE; -SODIUM CHLORIDE 1,000 ML IV ONE; -SODIUM CHLORIDE IV ONE; -[UNRECOGNIZED DRUG - OTHER] IVPB ONE
[2018-02-04 19:11] VITALS: BP 142/77; PULSE 80; TEMP 98.3
== END | disposition home or self-care (01) ==
LOC: JONCCHEMO 07:22
PROVIDERS: ATTEND Internal Medicine Hematology & Oncology
PROC: 3E013GC Introduction of Other Therapeutic Substance into Subcutaneous Tissue, Percutaneous Approach (ICD-10-PCS; principal; 2018-02-04)
DX: C23 Malignant neoplasm of gallbladder (principal); Z76.89 Persons encountering health services in other specified circumstances
CPT/HCPCS: 96372; J2505

== ENCOUNTER 2018-02-17 07:25 | Day surgery (SDC) | payer BC ==
[2018-02-17] MEDS ORDERED: POTASSIUM CHLORIDE IVPB ONE (08:00)
[2018-02-17] MEDS ORDERED: [UNRECOGNIZED DRUG - OTHER] IVPB ONE (08:00)
[2018-02-17] MEDS ORDERED: MANNITOL IVPB ONE (08:00)
[2018-02-17] MEDS ORDERED: MAGNESIUM SULFATE IVPB ONE (08:00)
[2018-02-17 09:12] LABS: BASO % 1.1 % (0-2.0); EOS % 0.8 % (0-4.5); HEMATOCRIT 32.2 % (35.4-49); LYMPH % 12.8 % (8-40); MCH 33.4 pg (25.7-33.7); MCHC 34.1 g/dl (32.0-35.9); MEAN CELL VOLUME 97.9 fl (80-96); MEAN PLT VOLUME 7.6 fl (7.5-11.1); MONO % 8.2 % (3.8-10.2); NEUT % 77.1 % (42.8-82.8); PLATELET COUNT 388 K/MM3 (134-434); RBC 3.29 M/mm3 (4.00-5.60); RDW 15.3 % (11.9-15.9); WHITE BLOOD COUNT 11.2 K/mm3 (4.0-10.0)
[2018-02-17] MEDS ORDERED: DEXAMETHASONE SOD PHOSPHATE 10 MG/1 ML VIAL IVPUSH ONE (09:30)
[2018-02-17] MEDS ORDERED: PALONOSETRON HCL 0.25 MG/5 ML VIAL IVPUSH ONE (09:30)
[2018-02-17] MEDS ORDERED: FOSAPREPITANT DIMEGLUMINE 150 MG in SODIUM CHLORIDE 145 ML IVPB ONE (09:30)
[2018-02-17 09:36] LABS: ALBUMIN 3.6 g/dl (3.4-5.0); ALK PHOS 182 U/L (45-117); ANION GAP 7 (8-16); BILIRUBIN,DIRECT < 0.2 mg/dL (0.0-0.2); BILIRUBIN,TOTAL 0.2 mg/dL (0.2-1.0); BLOOD UREA NITROGEN 13 mg/dL (7-18); CALCIUM 8.6 mg/dL (8.5-10.1); CHLORIDE 104 mmol/L (98-107); CO2 27 mmol/L (21-32); CREATININE 0.9 mg/dL (0.7-1.3); GLUCOSE,RANDOM 202 mg/dL (74-106); MAGNESIUM 1.9 mg/dL (1.8-2.4); POTASSIUM 4.5 mmol/L (3.5-5.1); SGOT/AST 14 U/L (15-37); SGPT/ALT 16 U/L (12-78); SODIUM 138 mmol/L (136-145); TOT PROT 7.5 g/dl (6.4-8.2)
[2018-02-17] MEDS ORDERED: GEMCITABINE HCL IV ONE (10:00)
[2018-02-17] MEDS ORDERED: SODIUM CHLORIDE IV ONE (10:00)
[2018-02-17] MEDS ORDERED: SODIUM CHLORIDE 1,000 ML IV ONE (11:00)
[2018-02-17] MEDS ORDERED: DEXAMETHASONE SOD PHOSPHATE 10 MG/1 ML VIAL IVPB ONE (12:00)
[2018-02-17 17:44] VITALS: TEMP 98.1
[2018-02-17 17:59] VITALS: BP 143/73; PULSE 81
[2018-02-17] MEDS ORDERED: PORTA CATH FLUSH 10 ML IVPUSH ONE (18:00)
== END 2018-02-17 16:55 | disposition home or self-care (01) ==
LOC: JONCCHEMO 07:25 → J7W 09:26 → JONCCHEMO 16:55
PROVIDERS: ATTEND Internal Medicine Hematology & Oncology
DX: Z51.11 Encounter for antineoplastic chemotherapy (principal); C23 Malignant neoplasm of gallbladder
CPT/HCPCS: 36415; 80053; 80076; 83735; 85025; 96361; 96367; 96375; 96413; 96417; J1100; J1453; J2469; J7030

== ENCOUNTER 2018-02-24 07:18 | Day surgery (SDC) | payer BC ==
[2018-02-24] MEDS ORDERED: MANNITOL IVPB ONE (08:00)
[2018-02-24] MEDS ORDERED: MAGNESIUM SULFATE IVPB ONE (08:00)
[2018-02-24] MEDS ORDERED: [UNRECOGNIZED DRUG - OTHER] IVPB ONE (08:00)
[2018-02-24] MEDS ORDERED: POTASSIUM CHLORIDE IVPB ONE (08:00)
[2018-02-24] MEDS ORDERED: FOSAPREPITANT DIMEGLUMINE 150 MG in SODIUM CHLORIDE 145 ML IVPB ONE (09:30)
[2018-02-24] MEDS ORDERED: DEXAMETHASONE INJECTION 10 MG in SODIUM CHLORIDE 50 ML IVPB ONE (09:30)
[2018-02-24] MEDS ORDERED: PALONOSETRON HCL 0.25 MG/5 ML VIAL IVPUSH ONE (09:30)
[2018-02-24 09:40] LABS: HEMATOCRIT 32.7 % (35.4-49); HEMOGLOBIN 10.9 GM/dL (11.7-16.9); MCH 32.6 pg (25.7-33.7); MCHC 33.4 g/dl (32.0-35.9); MEAN CELL VOLUME 97.6 fl (80-96); MEAN PLT VOLUME 7.1 fl (7.5-11.1); PLATELET COUNT 352 K/MM3 (134-434); RBC 3.35 M/mm3 (4.00-5.60); RDW 14.6 % (11.9-15.9); WHITE BLOOD COUNT 5.2 K/mm3 (4.0-10.0)
[2018-02-24] MEDS ORDERED: GEMCITABINE HCL IV ONE (10:00)
[2018-02-24] MEDS ORDERED: SODIUM CHLORIDE IV ONE (10:00)
[2018-02-24 10:10] LABS: ALBUMIN 3.7 g/dl (3.4-5.0); ANION GAP 7 (8-16); BLOOD UREA NITROGEN 12 mg/dL (7-18); CHLORIDE 103 mmol/L (98-107); CO2 28 mmol/L (21-32); GLUCOSE,RANDOM 164 mg/dL (74-106); MAGNESIUM 1.7 mg/dL (1.8-2.4); POTASSIUM 4.7 mmol/L (3.5-5.1); SODIUM 138 mmol/L (136-145)
[2018-02-24 10:13] LABS: ALK PHOS 131 U/L (45-117); BILIRUBIN,DIRECT < 0.2 mg/dL (0.0-0.2); BILIRUBIN,TOTAL 0.2 mg/dL (0.2-1.0); CREATININE 0.9 mg/dL (0.7-1.3); SGOT/AST 18 U/L (15-37); SGPT/ALT 21 U/L (12-78); TOT PROT 7.2 g/dl (6.4-8.2)
[2018-02-24] MEDS ORDERED: SODIUM CHLORIDE 1,000 ML IV ONE (11:00)
[2018-02-24 11:15] VITALS: TEMP 97.6
[2018-02-24] MEDS ORDERED: MAGNESIUM 1GM/D5W - 1 GM/100 ML IVPB IVPB ONE (12:00)
[2018-02-24 12:24] LABS: ANISOCYTOSIS 1+; MACROCYTOSIS 1+; OVALOCYTE 1+; PLATELET ESTIMATE NORMAL
[2018-02-24] MEDS ORDERED: PORTA CATH FLUSH 10 ML IVPUSH ONE (14:16)
[2018-02-24 17:53] VITALS: BP 135/75; PULSE 75
== END 2018-02-24 16:30 | disposition home or self-care (01) ==
LOC: JONCCHEMO 07:18 → J7W 10:00 → JONCCHEMO 16:30
PROVIDERS: ATTEND Internal Medicine Hematology & Oncology
DX: Z51.11 Encounter for antineoplastic chemotherapy (principal); C23 Malignant neoplasm of gallbladder
CPT/HCPCS: 36415; 80053; 80076; 82378; 83735; 85025; 86301; 96361; 96366; 96367; 96375; 96413; 96415; 96417; J1100; J1453; J2469; J7030

== ENCOUNTER 2018-03-19 07:20 | Day surgery (SDC) | payer BC ==
[2018-03-19] MEDS ORDERED: POTASSIUM CHLORIDE IVPB ONE (08:00)
[2018-03-19] MEDS ORDERED: MANNITOL IVPB ONE (08:00)
[2018-03-19] MEDS ORDERED: MAGNESIUM SULFATE IVPB ONE (08:00)
[2018-03-19] MEDS ORDERED: [UNRECOGNIZED DRUG - OTHER] IVPB ONE (08:00)
[2018-03-19 08:50] LABS: BASO % 2.2 % (0-2.0); EOS % 2.6 % (0-4.5); HEMATOCRIT 37.1 % (35.4-49); HEMOGLOBIN 12.7 GM/dL (11.7-16.9); LYMPH % 24.5 % (8-40); MCH 32.5 pg (25.7-33.7); MCHC 34.1 g/dl (32.0-35.9); MEAN CELL VOLUME 95.2 fl (80-96); MEAN PLT VOLUME 8.2 fl (7.5-11.1); MONO % 14.4 % (3.8-10.2); NEUT % 56.3 % (42.8-82.8); PLATELET COUNT 281 K/MM3 (134-434); RDW 14.5 % (11.9-15.9); WHITE BLOOD COUNT 5.4 K/mm3 (4.0-10.0)
[2018-03-19 09:26] LABS: ALBUMIN 3.8 g/dl (3.4-5.0); ALK PHOS 103 U/L (45-117); ANION GAP 9 (8-16); BILIRUBIN,DIRECT < 0.2 mg/dL (0.0-0.2); BILIRUBIN,TOTAL 0.2 mg/dL (0.2-1.0); BLOOD UREA NITROGEN 13 mg/dL (7-18); CALCIUM 8.8 mg/dL (8.5-10.1); CHLORIDE 105 mmol/L (98-107); CO2 26 mmol/L (21-32); GLUCOSE,RANDOM 138 mg/dL (74-106); MAGNESIUM 1.7 mg/dL (1.8-2.4); POTASSIUM 4.5 mmol/L (3.5-5.1); SGOT/AST 21 U/L (15-37); SGPT/ALT 24 U/L (12-78); SODIUM 140 mmol/L (136-145); TOT PROT 7.2 g/dl (6.4-8.2)
[2018-03-19] MEDS ORDERED: PALONOSETRON HCL 0.25 MG/5 ML VIAL IVPUSH ONE (09:30)
[2018-03-19] MEDS ORDERED: FOSAPREPITANT DIMEGLUMINE 150 MG in SODIUM CHLORIDE 145 ML IVPB ONE (09:30)
[2018-03-19] MEDS ORDERED: DEXAMETHASONE INJECTION 10 MG in SODIUM CHLORIDE 50 ML IVPB ONE (09:30)
[2018-03-19] MEDS ORDERED: GEMCITABINE HCL IV ONE (10:00)
[2018-03-19] MEDS ORDERED: SODIUM CHLORIDE IV ONE (10:00)
[2018-03-19 10:44] VITALS: TEMP 98.1
[2018-03-19] MEDS ORDERED: PORTA CATH FLUSH 10 ML IVPUSH ONE (10:44)
[2018-03-19] MEDS ORDERED: SODIUM CHLORIDE 1,000 ML IV ONE (11:00)
[2018-03-19 15:36] VITALS: BP 151/86; PULSE 69
== END 2018-03-19 15:37 | disposition home or self-care (01) ==
LOC: JONCCHEMO 07:20 → J7W 10:12 → JONCCHEMO 15:37
PROVIDERS: ATTEND Internal Medicine Hematology & Oncology
DX: Z51.11 Encounter for antineoplastic chemotherapy (principal); C23 Malignant neoplasm of gallbladder
CPT/HCPCS: 36415; 80048; 80076; 83735; 85025; 96361; 96367; 96375; 96413; 96417; J1100; J1453; J2469; J7030

== ENCOUNTER 2018-06-03 07:44 | Day surgery (SDC) | payer BC ==
[2018-06-03] MEDS ORDERED: MANNITOL IVPB ONE (08:00)
[2018-06-03] MEDS ORDERED: MAGNESIUM SULFATE IVPB ONE (08:00)
[2018-06-03] MEDS ORDERED: [UNRECOGNIZED DRUG - OTHER] IVPB ONE (08:00)
[2018-06-03] MEDS ORDERED: POTASSIUM CHLORIDE IVPB ONE (08:00)
[2018-06-03 09:53] LABS: ALBUMIN 3.8 g/dl (3.4-5.0); ALK PHOS 95 U/L (45-117); ANION GAP 9 MMOL/L (8-16); BILIRUBIN,TOTAL 0.2 mg/dL (0.2-1.0); BLOOD UREA NITROGEN 13 mg/dL (7-18); CHLORIDE 107 mmol/L (98-107); CO2 26 mmol/L (21-32); CREATININE 0.8 mg/dL (0.7-1.3); GLUCOSE,RANDOM 171 mg/dL (74-106); POTASSIUM 4.5 mmol/L (3.5-5.1); SGOT/AST 18 U/L (15-37); SGPT/ALT 27 U/L (12-78); SODIUM 142 mmol/L (136-145); TOT PROT 7.1 g/dl (6.4-8.2)
[2018-06-03] MEDS ORDERED: PORTA CATH FLUSH 10 ML IVPUSH ONE (09:53)
[2018-06-03 09:54] VITALS: TEMP 98.1
[2018-06-03 09:54] LABS: ALBUMIN 3.9 g/dl (3.4-5.0); BILIRUBIN,DIRECT < 0.2 mg/dL (0.0-0.2); MAGNESIUM 1.8 mg/dL (1.8-2.4); SGOT/AST 19 U/L (15-37); SGPT/ALT 26 U/L (12-78)
[2018-06-03] MEDS ORDERED: FOSAPREPITANT DIMEGLUMINE 150 MG in SODIUM CHLORIDE 150 ML IVPB ONE (10:00)
[2018-06-03] MEDS ORDERED: PALONOSETRON HCL 0.25 MG/5 ML VIAL IVPUSH ONE (10:00)
[2018-06-03] MEDS ORDERED: DEXAMETHASONE INJECTION 10 MG in SODIUM CHLORIDE 50 ML IVPB ONE (10:00)
[2018-06-03 10:05] LABS: ALK PHOS 97 U/L (45-117); BILIRUBIN,TOTAL 0.2 mg/dL (0.2-1.0); TOT PROT 7.1 g/dl (6.4-8.2)
[2018-06-03] MEDS ORDERED: GEMCITABINE HCL IV ONE (11:30)
[2018-06-03] MEDS ORDERED: SODIUM CHLORIDE IV ONE (11:30)
[2018-06-03] MEDS ORDERED: SODIUM CHLORIDE 1,000 ML IV ONE (12:00)
[2018-06-03 16:36] VITALS: BP 125/70; PULSE 68
== END 2018-06-03 16:15 | disposition home or self-care (01) ==
LOC: JONCCHEMO 07:44 → J7W 09:38 → JONCCHEMO 16:15
PROVIDERS: ATTEND Internal Medicine Hematology & Oncology
DX: Z51.11 Encounter for antineoplastic chemotherapy (principal); C23 Malignant neoplasm of gallbladder
CPT/HCPCS: 36415; 80053; 80076; 83735; 96361; 96367; 96375; 96413; 96417; J1100; J1453; J2469; J7030

== ENCOUNTER 2018-06-10 07:32 | Day surgery (SDC) | payer BC ==
[2018-06-10] MEDS ORDERED: [UNRECOGNIZED DRUG - OTHER] IVPB ONE (08:00)
[2018-06-10] MEDS ORDERED: MAGNESIUM SULFATE IVPB ONE (08:00)
[2018-06-10] MEDS ORDERED: MANNITOL IVPB ONE (08:00)
[2018-06-10] MEDS ORDERED: POTASSIUM CHLORIDE IVPB ONE (08:00)
[2018-06-10 08:46] LABS: BASO % 0.7 % (0-2.0); EOS % 0.3 % (0-4.5); HEMATOCRIT 36.7 % (35.4-49); HEMOGLOBIN 12.7 GM/dL (11.7-16.9); LYMPH % 33.6 % (8-40); MCHC 34.7 g/dl (32.0-35.9); MEAN CELL VOLUME 89.4 fl (80-96); MEAN PLT VOLUME 7.2 fl (7.5-11.1); NEUT % 57.4 % (42.8-82.8); PLATELET COUNT 321 K/MM3 (134-434); RDW 14.6 % (11.9-15.9); WHITE BLOOD COUNT 6.4 K/mm3 (4.0-10.0)
[2018-06-10 09:08] LABS: ALBUMIN 3.8 g/dl (3.4-5.0); ANION GAP 11 MMOL/L (8-16); BILIRUBIN,TOTAL 0.2 mg/dL (0.2-1.0); BLOOD UREA NITROGEN 17 mg/dL (7-18); CALCIUM 9.1 mg/dL (8.5-10.1); CHLORIDE 103 mmol/L (98-107); CO2 25 mmol/L (21-32); CREATININE 0.9 mg/dL (0.7-1.3); GLUCOSE,RANDOM 190 mg/dL (74-106); POTASSIUM 4.8 mmol/L (3.5-5.1); SGOT/AST 24 U/L (15-37); SGPT/ALT 36 U/L (12-78); SODIUM 139 mmol/L (136-145); TOT PROT 7.4 g/dl (6.4-8.2)
[2018-06-10 09:09] LABS: ALK PHOS 109 U/L (45-117)
[2018-06-10 09:21] LABS: BILIRUBIN,DIRECT < 0.2 mg/dL (0.0-0.2); MAGNESIUM 1.9 mg/dL (1.8-2.4)
[2018-06-10] MEDS ORDERED: DEXAMETHASONE INJECTION 10 MG in SODIUM CHLORIDE 50 ML IVPB ONE (09:30)
[2018-06-10] MEDS ORDERED: FOSAPREPITANT DIMEGLUMINE 150 MG in SODIUM CHLORIDE 145 ML IVPB ONE (09:30)
[2018-06-10] MEDS ORDERED: PALONOSETRON HCL 0.25 MG/5 ML VIAL IVPUSH ONE (09:30)
[2018-06-10] MEDS ORDERED: GEMCITABINE HCL IV ONE (10:00)
[2018-06-10] MEDS ORDERED: SODIUM CHLORIDE IV ONE (10:00)
[2018-06-10] MEDS ORDERED: SODIUM CHLORIDE 1,000 ML IV ONE (11:00)
[2018-06-10] MEDS ORDERED: amLODIPine BESYLATE 5 MG TABLET (FP) PO ONE (12:15)
[2018-06-10 15:05] VITALS: TEMP 98
[2018-06-10] MEDS ORDERED: PORTA CATH FLUSH 10 ML IVPUSH ONE (15:14)
[2018-06-10 16:15] VITALS: BP 153/79; PULSE 83
== END 2018-06-10 16:00 | disposition home or self-care (01) ==
LOC: JONCCHEMO 07:32 → J7W 09:43 → JONCCHEMO 16:00
PROVIDERS: ATTEND Internal Medicine Hematology & Oncology
PROC: 3E04305 Introduction of Other Antineoplastic into Central Vein, Percutaneous Approach (ICD-10-PCS; principal; 2018-06-10)
PROC: 3E043GC Introduction of Other Therapeutic Substance into Central Vein, Percutaneous Approach (ICD-10-PCS; 2018-06-10)
PROC: 3E0437Z Introduction of Electrolytic and Water Balance Substance into Central Vein, Percutaneous Approach (ICD-10-PCS; 2018-06-10)
DX: Z51.11 Encounter for antineoplastic chemotherapy (principal); C23 Malignant neoplasm of gallbladder
CPT/HCPCS: 36415; 80053; 80076; 83735; 85025; 86301; 96361; 96367; 96375; 96413; 96417; J1100; J1453; J2469; J7030

== ENCOUNTER 2018-06-24 07:30 | Day surgery (SDC) | payer BC ==
[2018-06-24] MEDS ORDERED: POTASSIUM CHLORIDE IVPB ONE (08:00)
[2018-06-24] MEDS ORDERED: [UNRECOGNIZED DRUG - OTHER] IVPB ONE (08:00)
[2018-06-24] MEDS ORDERED: MAGNESIUM SULFATE IVPB ONE (08:00)
[2018-06-24] MEDS ORDERED: MANNITOL IVPB ONE (08:00)
[2018-06-24] MEDS ORDERED: PALONOSETRON HCL 0.25 MG/5 ML VIAL IVPUSH ONE (09:30)
[2018-06-24] MEDS ORDERED: FOSAPREPITANT DIMEGLUMINE 150 MG in SODIUM CHLORIDE 145 ML IVPB ONE (09:30)
[2018-06-24] MEDS ORDERED: DEXAMETHASONE INJECTION 10 MG in SODIUM CHLORIDE 50 ML IVPB ONE (09:30)
[2018-06-24 09:33] LABS: BASO % 0.7 % (0-2.0); HEMATOCRIT 34.6 % (35.4-49); HEMOGLOBIN 11.7 GM/dL (11.7-16.9); LYMPH % 20.5 % (8-40); MCH 30.8 pg (25.7-33.7); MCHC 33.9 g/dl (32.0-35.9); MEAN CELL VOLUME 90.8 fl (80-96); MEAN PLT VOLUME 7.6 fl (7.5-11.1); MONO % 13.4 % (3.8-10.2); NEUT % 64.4 % (42.8-82.8); PLATELET COUNT 176 K/MM3 (134-434); RBC 3.81 M/mm3 (4.00-5.60); RDW 16.2 % (11.9-15.9); WHITE BLOOD COUNT 5.4 K/mm3 (4.0-10.0)
[2018-06-24 09:54] LABS: ALBUMIN 3.7 g/dl (3.4-5.0); ALBUMIN 3.8 g/dl (3.4-5.0); ALK PHOS 101 U/L (45-117); ANION GAP 10 MMOL/L (8-16); BILIRUBIN,DIRECT < 0.2 mg/dL (0.0-0.2); BILIRUBIN,TOTAL 0.3 mg/dL (0.2-1); BLOOD UREA NITROGEN 11 mg/dL (7-18); CALCIUM 8.5 mg/dL (8.5-10.1); CHLORIDE 107 mmol/L (98-107); CO2 24 mmol/L (21-32); CREATININE 0.9 mg/dL (0.55-1.3); GLUCOSE,RANDOM 155 mg/dL (74-106); MAGNESIUM 1.8 mg/dL (1.8-2.4); POTASSIUM 4.5 mmol/L (3.5-5.1); SGOT/AST 21 U/L (15-37); SGOT/AST 23 U/L (15-37); SGPT/ALT 26 U/L (13-61); SODIUM 141 mmol/L (136-145); TOT PROT 6.9 g/dl (6.4-8.2)
[2018-06-24 09:56] LABS: ALK PHOS 98 U/L (45-117); BILIRUBIN,TOTAL 0.3 mg/dL (0.2-1); TOT PROT 6.9 g/dl (6.4-8.2)
[2018-06-24] MEDS ORDERED: GEMCITABINE HCL IV ONE (10:00)
[2018-06-24] MEDS ORDERED: SODIUM CHLORIDE IV ONE (10:00)
[2018-06-24] MEDS ORDERED: SODIUM CHLORIDE 1,000 ML IV ONE (11:00)
[2018-06-24 16:41] VITALS: TEMP 98.1
[2018-06-24] MEDS ORDERED: PORTA CATH FLUSH 10 ML IVPUSH ONE (16:41)
[2018-06-24 17:09] VITALS: BP 160/82; PULSE 58
== END 2018-06-24 17:09 | disposition home or self-care (01) ==
LOC: JONCCHEMO 07:30 → J7W 10:29 → JONCCHEMO 17:09
PROVIDERS: ATTEND Internal Medicine Hematology & Oncology
DX: Z51.11 Encounter for antineoplastic chemotherapy (principal); C23 Malignant neoplasm of gallbladder
CPT/HCPCS: 36415; 80053; 80076; 83735; 85025; 96361; 96367; 96375; 96413; 96417; J1100; J1453; J2469; J7030

== ENCOUNTER 2018-07-01 07:43 | Day surgery (SDC) | payer BC ==
[2018-07-01] MEDS ORDERED: MAGNESIUM SULFATE IVPB ONE (08:00)
[2018-07-01] MEDS ORDERED: POTASSIUM CHLORIDE IVPB ONE (08:00)
[2018-07-01] MEDS ORDERED: [UNRECOGNIZED DRUG - OTHER] IVPB ONE (08:00)
[2018-07-01] MEDS ORDERED: MANNITOL IVPB ONE (08:00)
[2018-07-01 09:16] LABS: BASO % 0.9 % (0-2.0); HEMATOCRIT 32.3 % (35.4-49); HEMOGLOBIN 11.1 GM/dL (11.7-16.9); LYMPH % 28.8 % (8-40); MCH 31.2 pg (25.7-33.7); MCHC 34.3 g/dl (32.0-35.9); MEAN CELL VOLUME 90.8 fl (80-96); MEAN PLT VOLUME 7.8 fl (7.5-11.1); MONO % 9.6 % (3.8-10.2); NEUT % 59.7 % (42.8-82.8); PLATELET COUNT 230 K/MM3 (134-434); RBC 3.56 M/mm3 (4.00-5.60); RDW 16.5 % (11.9-15.9); WHITE BLOOD COUNT 4.2 K/mm3 (4.0-10.0)
[2018-07-01] MEDS ORDERED: DEXAMETHASONE INJECTION 10 MG in SODIUM CHLORIDE 50 ML IVPB ONE (09:30)
[2018-07-01] MEDS ORDERED: FOSAPREPITANT DIMEGLUMINE 150 MG in SODIUM CHLORIDE 145 ML IVPB ONE (09:30)
[2018-07-01] MEDS ORDERED: PALONOSETRON HCL 0.25 MG/5 ML VIAL IVPUSH ONE (09:30)
[2018-07-01 10:00] LABS: ALBUMIN 3.7 g/dl (3.4-5.0); ALK PHOS 105 U/L (45-117); BILIRUBIN,DIRECT < 0.2 mg/dL (0.0-0.2); BILIRUBIN,TOTAL 0.2 mg/dL (0.2-1); MAGNESIUM 1.6 mg/dL (1.8-2.4); SGOT/AST 20 U/L (15-37); SGPT/ALT 33 U/L (13-61); TOT PROT 6.8 g/dl (6.4-8.2)
[2018-07-01] MEDS ORDERED: SODIUM CHLORIDE IV ONE (10:00)
[2018-07-01] MEDS ORDERED: GEMCITABINE HCL IV ONE (10:00)
[2018-07-01 10:01] LABS: ALBUMIN 3.7 g/dl (3.4-5.0); ALK PHOS 107 U/L (45-117); ANION GAP 10 MMOL/L (8-16); BILIRUBIN,TOTAL 0.2 mg/dL (0.2-1); BLOOD UREA NITROGEN 13 mg/dL (7-18); CALCIUM 9.8 mg/dL (8.5-10.1); CHLORIDE 104 mmol/L (98-107); CO2 26 mmol/L (21-32); CREATININE 0.8 mg/dL (0.55-1.3); GLUCOSE,RANDOM 182 mg/dL (74-106); POTASSIUM 4.4 mmol/L (3.5-5.1); SGOT/AST 22 U/L (15-37); SGPT/ALT 32 U/L (13-61); SODIUM 140 mmol/L (136-145); TOT PROT 6.7 g/dl (6.4-8.2)
[2018-07-01] MEDS ORDERED: SODIUM CHLORIDE 1,000 ML IV ONE (11:00)
[2018-07-01 11:03] LABS: ACANTHOCYTES 0; ANISOCYTOSIS 0; HELMET CELLS 0; HOWELL-JOLLY BODIES 0; MACROCYTOSIS 0; OVALOCYTE 0; PLATELET ESTIMATE NORMAL; ROULEAU 0; SICKELED CELLS 0; TARGET CELLS 0; TEAR DROP CELLS 0; TOXIC GRANULATION 0
[2018-07-01] MEDS ORDERED: MAGNESIUM SULF 50% (8.12 MEQ/2 ML-1 GM VIAL) IVPB ONE (14:30)
[2018-07-01] MEDS ORDERED: PORTA CATH FLUSH 10 ML IVPUSH ONE (16:59)
[2018-07-01 17:00] VITALS: BP 153/79; PULSE 74; TEMP 97.8
== END 2018-07-01 17:02 | disposition home or self-care (01) ==
LOC: JONCCHEMO 07:43 → J7W 13:13 → JONCCHEMO 17:02
PROVIDERS: ATTEND Internal Medicine Hematology & Oncology
DX: Z51.11 Encounter for antineoplastic chemotherapy (principal); C23 Malignant neoplasm of gallbladder
CPT/HCPCS: 36415; 80053; 80076; 83735; 85025; 96361; 96367; 96375; 96413; 96417; J1100; J1453; J2469; J7030

== ENCOUNTER 2018-07-15 07:44 | Day surgery (SDC) | payer BC ==
[2018-07-15] MEDS ORDERED: MANNITOL IVPB ONE (08:00)
[2018-07-15] MEDS ORDERED: POTASSIUM CHLORIDE IVPB ONE (08:00)
[2018-07-15] MEDS ORDERED: MAGNESIUM SULFATE IVPB ONE (08:00)
[2018-07-15] MEDS ORDERED: [UNRECOGNIZED DRUG - OTHER] IVPB ONE (08:00)
[2018-07-15 09:31] LABS: BASO % 0.6 % (0-2.0); EOS % 1.8 % (0-4.5); HEMATOCRIT 32.3 % (35.4-49); HEMOGLOBIN 10.9 GM/dL (11.7-16.9); LYMPH % 19.3 % (8-40); MCH 31.4 pg (25.7-33.7); MEAN CELL VOLUME 92.4 fl (80-96); MEAN PLT VOLUME 7.6 fl (7.5-11.1); NEUT % 66.3 % (42.8-82.8); PLATELET COUNT 191 K/MM3 (134-434); RBC 3.49 M/mm3 (4.00-5.60); RDW 18.9 % (11.9-15.9); WHITE BLOOD COUNT 4.7 K/mm3 (4.0-10.0)
[2018-07-15 09:54] LABS: ALBUMIN 3.5 g/dl (3.4-5.0); BILIRUBIN,DIRECT 0.1 mg/dL (0.0-0.2); BILIRUBIN,TOTAL 0.2 mg/dL (0.2-1); MAGNESIUM 1.6 mg/dL (1.8-2.4); TOT PROT 6.6 g/dl (6.4-8.2)
[2018-07-15 10:00] LABS: ALBUMIN 3.5 g/dl (3.4-5.0); ALK PHOS 108 U/L (45-117); ANION GAP 5 MMOL/L (8-16); BILIRUBIN,TOTAL 0.2 mg/dL (0.2-1); BLOOD UREA NITROGEN 10 mg/dL (7-18); CALCIUM 8.5 mg/dL (8.5-10.1); CHLORIDE 107 mmol/L (98-107); CO2 25 mmol/L (21-32); CREATININE 0.9 mg/dL (0.55-1.3); GLUCOSE,RANDOM 252 mg/dL (74-106); POTASSIUM 4.4 mmol/L (3.5-5.1); SGOT/AST 19 U/L (15-37); SGPT/ALT 25 U/L (13-61); SODIUM 136 mmol/L (136-145); TOT PROT 6.6 g/dl (6.4-8.2)
[2018-07-15] MEDS ORDERED: FOSAPREPITANT DIMEGLUMINE 150 MG in SODIUM CHLORIDE 150 ML IVPB ONE (10:00)
[2018-07-15] MEDS ORDERED: DEXAMETHASONE INJECTION 10 MG in SODIUM CHLORIDE 50 ML IVPB ONE (10:00)
[2018-07-15] MEDS ORDERED: PALONOSETRON HCL 0.25 MG/5 ML VIAL IVPUSH ONE (10:00)
[2018-07-15] MEDS ORDERED: MAGNESIUM SULF 50% (8.12 MEQ/2 ML-1 GM VIAL) IVPB ONE (11:00)
[2018-07-15] MEDS ORDERED: GEMCITABINE HCL IV ONE (11:00)
[2018-07-15] MEDS ORDERED: SODIUM CHLORIDE IV ONE (11:00)
[2018-07-15] MEDS ORDERED: SODIUM CHLORIDE 1,000 ML IV ONE (15:15)
[2018-07-15 17:07] VITALS: TEMP 97.5
[2018-07-15] MEDS ORDERED: PORTA CATH FLUSH 10 ML IVPUSH ONE (17:07)
[2018-07-15 17:10] VITALS: BP 148/64; PULSE 69
== END 2018-07-15 17:00 | disposition home or self-care (01) ==
LOC: JONCCHEMO 07:44 → J7W 10:01 → JONCCHEMO 17:00
PROVIDERS: ATTEND Internal Medicine Hematology & Oncology
DX: Z51.11 Encounter for antineoplastic chemotherapy (principal); C23 Malignant neoplasm of gallbladder
CPT/HCPCS: 36415; 80053; 80076; 82728; 83735; 84443; 85025; 96361; 96366; 96367; 96375; 96413; 96417; J1100; J1453; J2469; J7030

== ENCOUNTER 2018-07-22 07:43 | Day surgery (SDC) | payer BC ==
[2018-07-22] MEDS ORDERED: POTASSIUM CHLORIDE IVPB ONE (08:00)
[2018-07-22] MEDS ORDERED: MAGNESIUM SULFATE IVPB ONE (08:00)
[2018-07-22] MEDS ORDERED: [UNRECOGNIZED DRUG - OTHER] IVPB ONE (08:00)
[2018-07-22] MEDS ORDERED: MANNITOL IVPB ONE (08:00)
[2018-07-22] MEDS ORDERED: DEXAMETHASONE INJECTION 10 MG in SODIUM CHLORIDE 50 ML IVPB ONE (09:30)
[2018-07-22] MEDS ORDERED: FOSAPREPITANT DIMEGLUMINE 150 MG in SODIUM CHLORIDE 145 ML IVPB ONE (09:30)
[2018-07-22] MEDS ORDERED: PALONOSETRON HCL 0.25 MG/5 ML VIAL IVPUSH ONE (09:30)
[2018-07-22] MEDS ORDERED: GEMCITABINE HCL IV ONE (10:00)
[2018-07-22] MEDS ORDERED: SODIUM CHLORIDE IV ONE (10:00)
[2018-07-22 10:36] LABS: BASO % 0.8 % (0-2.0); EOS % 1.3 % (0-4.5); HEMATOCRIT 34.7 % (35.4-49); MCH 32.4 pg (25.7-33.7); MCHC 34.6 g/dl (32.0-35.9); MEAN CELL VOLUME 93.7 fl (80-96); MEAN PLT VOLUME 7.2 fl (7.5-11.1); MONO % 10.3 % (3.8-10.2); NEUT % 56.6 % (42.8-82.8); PLATELET COUNT 258 K/MM3 (134-434); RBC 3.71 M/mm3 (4.00-5.60); WHITE BLOOD COUNT 4.1 K/mm3 (4.0-10.0)
[2018-07-22] MEDS ORDERED: SODIUM CHLORIDE 1,000 ML IV ONE (11:00)
[2018-07-22 11:10] LABS: ALBUMIN 3.8 g/dl (3.4-5.0); BILIRUBIN,DIRECT 0.1 mg/dL (0.0-0.2); BILIRUBIN,TOTAL 0.3 mg/dL (0.2-1); MAGNESIUM 1.6 mg/dL (1.8-2.4); TOT PROT 7.1 g/dl (6.4-8.2)
[2018-07-22 11:11] LABS: ALBUMIN 3.9 g/dl (3.4-5.0); ALK PHOS 116 U/L (45-117); ANION GAP 7 MMOL/L (8-16); BILIRUBIN,TOTAL 0.2 mg/dL (0.2-1); BLOOD UREA NITROGEN 17 mg/dL (7-18); CHLORIDE 104 mmol/L (98-107); CO2 27 mmol/L (21-32); GLUCOSE,RANDOM 229 mg/dL (74-106); POTASSIUM 4.8 mmol/L (3.5-5.1); SGOT/AST 30 U/L (15-37); SGPT/ALT 34 U/L (13-61); SODIUM 137 mmol/L (136-145); TOT PROT 7.2 g/dl (6.4-8.2)
[2018-07-22] MEDS ORDERED: MAGNESIUM SULF 50% (8.12 MEQ/2 ML-1 GM VIAL) IVPB ONE (11:47)
[2018-07-22] MEDS ORDERED: MAGNESIUM SULF 50% (8.12 MEQ/2 ML-1 GM VIAL) ONE (17:02)
[2018-07-22 17:42] VITALS: TEMP 98
[2018-07-22] MEDS ORDERED: PORTA CATH FLUSH 10 ML IVPUSH ONE (18:00)
[2018-07-22 18:42] VITALS: BP 137/72; PULSE 74
== END 2018-07-22 18:30 | disposition home or self-care (01) ==
LOC: JONCCHEMO 07:43 → J7W 11:46 → JONCCHEMO 18:30
PROVIDERS: ATTEND Internal Medicine Hematology & Oncology
DX: Z51.11 Encounter for antineoplastic chemotherapy (principal); C23 Malignant neoplasm of gallbladder
CPT/HCPCS: 36415; 80053; 80076; 83735; 85025; 96361; 96366; 96367; 96375; 96413; 96417; J1100; J1453; J2469; J7030

== ENCOUNTER 2018-08-05 07:47 | Day surgery (SDC) | payer BC ==
[2018-08-05] MEDS ORDERED: MAGNESIUM SULFATE IVPB ONE (08:00)
[2018-08-05] MEDS ORDERED: POTASSIUM CHLORIDE IVPB ONE (08:00)
[2018-08-05] MEDS ORDERED: MANNITOL IVPB ONE (08:00)
[2018-08-05] MEDS ORDERED: [UNRECOGNIZED DRUG - OTHER] IVPB ONE (08:00)
[2018-08-05] MEDS ORDERED: PALONOSETRON HCL 0.25 MG/5 ML VIAL IVPUSH ONE (09:30)
[2018-08-05] MEDS ORDERED: SODIUM CHLORIDE IVPB ONE (09:30)
[2018-08-05] MEDS ORDERED: FOSAPREPITANT DIMEGLUMINE IVPB ONE (09:30)
[2018-08-05] MEDS ORDERED: DEXAMETHASONE INJECTION 10 MG in SODIUM CHLORIDE 50 ML IVPB ONE (09:30)
[2018-08-05 09:53] LABS: BASO % 0.6 % (0-2.0); EOS % 1.1 % (0-4.5); HEMATOCRIT 33.1 % (35.4-49); HEMOGLOBIN 11.2 GM/dL (11.7-16.9); LYMPH % 21.7 % (8-40); MCH 32.3 pg (25.7-33.7); MEAN CELL VOLUME 95.2 fl (80-96); MEAN PLT VOLUME 7.9 fl (7.5-11.1); MONO % 12.2 % (3.8-10.2); NEUT % 64.4 % (42.8-82.8); PLATELET COUNT 242 K/MM3 (134-434); RBC 3.48 M/mm3 (4.00-5.60); RDW 18.1 % (11.9-15.9); WHITE BLOOD COUNT 5.5 K/mm3 (4.0-10.0)
[2018-08-05] MEDS ORDERED: SODIUM CHLORIDE IV ONE (10:00)
[2018-08-05] MEDS ORDERED: GEMCITABINE HCL IV ONE (10:00)
[2018-08-05 10:28] LABS: ALBUMIN 3.9 g/dl (3.4-5.0); ALK PHOS 120 U/L (45-117); ANION GAP 10 MMOL/L (8-16); BILIRUBIN,DIRECT 0.1 mg/dL (0.0-0.2); BILIRUBIN,TOTAL 0.2 mg/dL (0.2-1); BLOOD UREA NITROGEN 19 mg/dL (7-18); CHLORIDE 107 mmol/L (98-107); CO2 25 mmol/L (21-32); GLUCOSE,RANDOM 214 mg/dL (74-106); MAGNESIUM 1.7 mg/dL (1.8-2.4); POTASSIUM 4.7 mmol/L (3.5-5.1); SGOT/AST 28 U/L (15-37); SGPT/ALT 29 U/L (13-61); SODIUM 142 mmol/L (136-145); TOT PROT 7.1 g/dl (6.4-8.2)
[2018-08-05] MEDS ORDERED: SODIUM CHLORIDE 1,000 ML IV ONE (11:00)
[2018-08-05 11:03] VITALS: TEMP 97.9
[2018-08-05] MEDS ORDERED: PORTA CATH FLUSH 10 ML IVPUSH ONE (11:09)
[2018-08-05 16:51] VITALS: BP 116/77; PULSE 69
== END 2018-08-05 17:00 | disposition home or self-care (01) ==
LOC: JONCCHEMO 07:47 → J7W 10:35 → JONCCHEMO 17:00
PROVIDERS: ATTEND Internal Medicine Hematology & Oncology
DX: Z51.11 Encounter for antineoplastic chemotherapy (principal); C23 Malignant neoplasm of gallbladder
CPT/HCPCS: 36415; 80053; 80076; 83735; 85025; 96361; 96367; 96375; 96413; 96417; J1100; J1453; J2469; J7030

== ENCOUNTER 2018-08-12 07:18 | Day surgery (SDC) | payer BC ==
[2018-08-12] MEDS ORDERED: MAGNESIUM SULFATE IVPB ONE (08:00)
[2018-08-12] MEDS ORDERED: MANNITOL IVPB ONE (08:00)
[2018-08-12] MEDS ORDERED: [UNRECOGNIZED DRUG - OTHER] IVPB ONE (08:00)
[2018-08-12] MEDS ORDERED: POTASSIUM CHLORIDE IVPB ONE (08:00)
[2018-08-12] MEDS ORDERED: FOSAPREPITANT DIMEGLUMINE 150 MG in SODIUM CHLORIDE 145 ML IVPB ONE (09:30)
[2018-08-12] MEDS ORDERED: DEXAMETHASONE INJECTION 10 MG in SODIUM CHLORIDE 50 ML IVPB ONE (09:30)
[2018-08-12] MEDS ORDERED: PALONOSETRON HCL 0.25 MG/5 ML VIAL IVPUSH ONE (09:30)
[2018-08-12 09:45] LABS: BASO % 0.7 % (0-2.0); EOS % 0.7 % (0-4.5); HEMATOCRIT 30.9 % (35.4-49); HEMOGLOBIN 11.1 GM/dL (11.7-16.9); LYMPH % 27.4 % (8-40); MCH 33.8 pg (25.7-33.7); MCHC 35.9 g/dl (32.0-35.9); MEAN CELL VOLUME 94.1 fl (80-96); MEAN PLT VOLUME 7.4 fl (7.5-11.1); MONO % 5.8 % (3.8-10.2); NEUT % 65.4 % (42.8-82.8); PLATELET COUNT 246 K/MM3 (134-434); RBC 3.29 M/mm3 (4.00-5.60); RDW 16.7 % (11.9-15.9); WHITE BLOOD COUNT 4.3 K/mm3 (4.0-10.0)
[2018-08-12] MEDS ORDERED: GEMCITABINE HCL IV ONE (10:00)
[2018-08-12] MEDS ORDERED: SODIUM CHLORIDE IV ONE (10:00)
[2018-08-12 10:24] LABS: ALBUMIN 3.8 g/dl (3.4-5.0); ALK PHOS 122 U/L (45-117); ANION GAP 5 MMOL/L (8-16); BILIRUBIN,DIRECT 0.1 mg/dL (0.0-0.2); BILIRUBIN,TOTAL 0.2 mg/dL (0.2-1); BLOOD UREA NITROGEN 17 mg/dL (7-18); CALCIUM 8.9 mg/dL (8.5-10.1); CHLORIDE 103 mmol/L (98-107); CO2 28 mmol/L (21-32); CREATININE 1.1 mg/dL (0.55-1.3); MAGNESIUM 1.8 mg/dL (1.8-2.4); POTASSIUM 4.4 mmol/L (3.5-5.1); SGOT/AST 30 U/L (15-37); SGPT/ALT 35 U/L (13-61); SODIUM 136 mmol/L (136-145); TOT PROT 7.1 g/dl (6.4-8.2)
[2018-08-12 10:26] LABS: GLUCOSE,RANDOM 311 mg/dL (74-106)
[2018-08-12] MEDS ORDERED: SODIUM CHLORIDE 1,000 ML IV ONE (11:00)
[2018-08-12] MEDS ORDERED: amLODIPine BESYLATE 5 MG TABLET (FP) PO ONE (11:30)
[2018-08-12] MEDS ORDERED: INSULIN (NOVOLOG) ASPART 100 UNITS/ML 10ML VIAL SQ ONE ×2 (11:45→17:45)
[2018-08-12 12:02] LABS: ANISOCYTOSIS 0; MACROCYTOSIS 0; PLATELET ESTIMATE NORMAL
[2018-08-12 16:08] VITALS: TEMP 97.3
[2018-08-12] MEDS ORDERED: PORTA CATH FLUSH 10 ML IVPUSH ONE (16:08)
[2018-08-12 17:18] VITALS: BP 155/77; PULSE 73
== END 2018-08-12 17:15 | disposition home or self-care (01) ==
LOC: JONCCHEMO 07:18 → J7W 10:59 → JONCCHEMO 17:15
PROVIDERS: ATTEND Internal Medicine Hematology & Oncology
DX: Z51.11 Encounter for antineoplastic chemotherapy (principal); C23 Malignant neoplasm of gallbladder
CPT/HCPCS: 36415; 80053; 80076; 82962; 83735; 85025; 96361; 96367; 96375; 96413; 96417; J1100; J1453; J2469; J7030

== ENCOUNTER 2018-09-17 07:56 | Day surgery (SDC) | payer BC ==
[~2018-09-17 07:56] MED LIST changes: +DEXAMETHASONE SODIUM PHOSPHATE 10 MG in SODIUM CHLORIDE 50 ML IVPB ONE; +FOSAPREPITANT DIMEGLUMINE 150 MG in SODIUM CHLORIDE 150 ML IVPB ONE; +GEMCITABINE HCL IV ONE; +MAGNESIUM SULFATE IVPB ONE; +MANNITOL IVPB ONE; +PALONOSETRON HCL 0.25 MG/5 ML VIAL IVPUSH ONE; -PEGFILGRASTIM 6 MG/0.6 ML DISP.SYRIN SQ ONE; +POTASSIUM CHLORIDE IVPB ONE; +SODIUM CHLORIDE 1,000 ML IV ONE; +SODIUM CHLORIDE IV ONE; +[UNRECOGNIZED DRUG - OTHER] IVPB ONE
[2018-09-17] MEDS ORDERED: amLODIPine BESYLATE 10 MG TABLET (FP) PO PRN (09:57)
[2018-09-17] MEDS ORDERED: MANNITOL IVPB ONE (10:00)
[2018-09-17] MEDS ORDERED: [UNRECOGNIZED DRUG - OTHER] IVPB ONE (10:00)
[2018-09-17] MEDS ORDERED: POTASSIUM CHLORIDE IVPB ONE (10:00)
[2018-09-17] MEDS ORDERED: DEXAMETHASONE SODIUM PHOSPHATE 10 MG in SODIUM CHLORIDE 50 ML IVPB ONE (10:00)
[2018-09-17] MEDS ORDERED: PALONOSETRON HCL 0.25 MG/5 ML VIAL IVPUSH ONE (10:00)
[2018-09-17] MEDS ORDERED: FOSAPREPITANT DIMEGLUMINE 150 MG in SODIUM CHLORIDE 150 ML IVPB ONE (10:00)
[2018-09-17] MEDS ORDERED: MAGNESIUM SULFATE IVPB ONE (10:00)
[2018-09-17] MEDS ORDERED: GEMCITABINE HCL IV ONE (10:30)
[2018-09-17] MEDS ORDERED: SODIUM CHLORIDE IV ONE (10:30)
[2018-09-17] MEDS ORDERED: SODIUM CHLORIDE 1,000 ML IV ONE (11:30)
[2018-09-17 14:41] VITALS: TEMP 98.1
[2018-09-17] MEDS ORDERED: PORTA CATH FLUSH 10 ML IVPUSH ONE (14:41)
[2018-09-17 16:13] VITALS: BP 153/76; PULSE 69
== END 2018-09-17 16:14 | disposition home or self-care (01) ==
LOC: JONCCHEMO 07:56 → J7W 09:43 → JONCCHEMO 16:14
PROVIDERS: ATTEND Internal Medicine Hematology & Oncology
DX: Z51.11 Encounter for antineoplastic chemotherapy (principal); C23 Malignant neoplasm of gallbladder
CPT/HCPCS: 96361; 96367; 96375; 96413; 96417; J1453; J2469; J7030

== ENCOUNTER 2018-09-23 05:37 | Day surgery (SDC) | payer BC ==
[2018-09-23] MEDS ORDERED: POTASSIUM CHLORIDE IVPB ONE (08:00)
[2018-09-23] MEDS ORDERED: MANNITOL IVPB ONE (08:00)
[2018-09-23] MEDS ORDERED: MAGNESIUM SULFATE IVPB ONE (08:00)
[2018-09-23] MEDS ORDERED: [UNRECOGNIZED DRUG - OTHER] IVPB ONE (08:00)
[2018-09-23 09:17] LABS: BASO % 1.3 % (0-2.0); EOS % 0.6 % (0-4.5); HEMATOCRIT 34.6 % (35.4-49); HEMOGLOBIN 12.3 GM/dL (11.7-16.9); LYMPH % 35.9 % (8-40); MCH 33.5 pg (25.7-33.7); MCHC 35.6 g/dl (32.0-35.9); MEAN CELL VOLUME 94.1 fl (80-96); MEAN PLT VOLUME 8.4 fl (7.5-11.1); MONO % 3.9 % (3.8-10.2); NEUT % 58.3 % (42.8-82.8); PLATELET COUNT 150 K/MM3 (134-434); RBC 3.68 M/mm3 (4.00-5.60); RDW 13.7 % (11.9-15.9); WHITE BLOOD COUNT 3.8 K/mm3 (4.0-10.0)
[2018-09-23 09:45] LABS: ALBUMIN 3.8 g/dl (3.4-5.0); BILIRUBIN,DIRECT 0.1 mg/dL (0.0-0.2); BILIRUBIN,TOTAL 0.2 mg/dL (0.2-1); MAGNESIUM 2.1 mg/dL (1.8-2.4); TOT PROT 7.4 g/dl (6.4-8.2)
[2018-09-23] MEDS ORDERED: PALONOSETRON HCL 0.25 MG/5 ML VIAL IVPUSH ONE (10:00)
[2018-09-23] MEDS ORDERED: FOSAPREPITANT DIMEGLUMINE 150 MG in SODIUM CHLORIDE 150 ML IVPB ONE (10:00)
[2018-09-23] MEDS ORDERED: DEXAMETHASONE SODIUM PHOSPHATE 10 MG in SODIUM CHLORIDE 50 ML IVPB ONE (10:00)
[2018-09-23] MEDS ORDERED: SODIUM CHLORIDE IV ONE (11:00)
[2018-09-23] MEDS ORDERED: GEMCITABINE HCL IV ONE (11:00)
[2018-09-23] MEDS ORDERED: SODIUM CHLORIDE 1,000 ML IV ONE (11:30)
[2018-09-23 12:30] LABS: BLOOD UREA NITROGEN 31 mg/dL (7-18); CREATININE 1.4 mg/dL (0.55-1.3)
[2018-09-23 12:31] LABS: ALBUMIN 3.9 g/dl (3.4-5.0); ANION GAP 16 MMOL/L (8-16); CALCIUM 8.5 mg/dL (8.5-10.1); CHLORIDE 103 mmol/L (98-107); CO2 15 mmol/L (21-32); POTASSIUM 4.6 mmol/L (3.5-5.1); SODIUM 134 mmol/L (136-145); TOT PROT 7.5 g/dl (6.4-8.2)
[2018-09-23 12:32] LABS: ALK PHOS 129 U/L (45-117); BILIRUBIN,TOTAL 0.2 mg/dL (0.2-1); GLUCOSE,RANDOM 315 mg/dL (74-106); SGOT/AST 27 U/L (15-37); SGPT/ALT 58 U/L (13-61)
[2018-09-23 16:16] VITALS: BP 127/72; PULSE 82
[2018-09-23 16:19] VITALS: TEMP 98.1
== END 2018-09-23 16:19 | disposition home or self-care (01) ==
LOC: JONCCHEMO 05:37 → J7W 09:36 → JONCCHEMO 16:19
PROVIDERS: ATTEND Internal Medicine Hematology & Oncology
PROC: 3E04305 Introduction of Other Antineoplastic into Central Vein, Percutaneous Approach (ICD-10-PCS; principal; 2018-09-23)
PROC: 3E043GC Introduction of Other Therapeutic Substance into Central Vein, Percutaneous Approach (ICD-10-PCS; 2018-09-23)
PROC: 3E0437Z Introduction of Electrolytic and Water Balance Substance into Central Vein, Percutaneous Approach (ICD-10-PCS; 2018-09-23)
DX: Z51.11 Encounter for antineoplastic chemotherapy (principal); C23 Malignant neoplasm of gallbladder
CPT/HCPCS: 36415; 80053; 80076; 83735; 85025; 96361; 96367; 96375; 96413; 96417; J1453; J2469; J7030

== ENCOUNTER 2018-10-08 07:47 | Day surgery (SDC) | payer BC ==
[2018-10-08] MEDS ORDERED: [UNRECOGNIZED DRUG - OTHER] IVPB ONE (08:00)
[2018-10-08] MEDS ORDERED: MANNITOL IVPB ONE (08:00)
[2018-10-08] MEDS ORDERED: POTASSIUM CHLORIDE IVPB ONE (08:00)
[2018-10-08] MEDS ORDERED: MAGNESIUM SULFATE IVPB ONE (08:00)
[2018-10-08] MEDS ORDERED: PALONOSETRON HCL 0.25 MG/5 ML VIAL IVPUSH ONE (09:30)
[2018-10-08] MEDS ORDERED: FOSAPREPITANT DIMEGLUMINE 150 MG in SODIUM CHLORIDE 145 ML IVPB ONE (09:30)
[2018-10-08] MEDS ORDERED: DEXAMETHASONE SODIUM PHOSPHATE 10 MG in SODIUM CHLORIDE 50 ML IVPB ONE (09:30)
[2018-10-08] MEDS ORDERED: GEMCITABINE HCL IV ONE (10:00)
[2018-10-08] MEDS ORDERED: SODIUM CHLORIDE IV ONE (10:00)
[2018-10-08] MEDS ORDERED: SODIUM CHLORIDE 1,000 ML IV ONE (11:00)
[2018-10-08] MEDS ORDERED: INSULIN (NOVOLOG) ASPART 100 UNITS/ML 10ML VIAL SQ ONE (14:30)
[2018-10-08 18:40] VITALS: BP 143/84; PULSE 77; TEMP 97.9
[2018-10-08] MEDS ORDERED: PORTA CATH FLUSH 10 ML IVPUSH ONE (18:40)
[2018-10-09] MEDS ORDERED: TBO-FILGRASTIM 480 MCG/0.8 ML DISP.SYRIN SQ ONE (10:00)
== END 2018-10-08 16:30 | disposition home or self-care (01) ==
LOC: JONCCHEMO 07:47 → J7W 09:57 → JONCCHEMO 16:30
PROVIDERS: ATTEND Internal Medicine Hematology & Oncology
DX: Z51.11 Encounter for antineoplastic chemotherapy (principal); C23 Malignant neoplasm of gallbladder
CPT/HCPCS: 82962; 96361; 96367; 96375; 96413; 96417; J1453; J2469; J7030

== ENCOUNTER → 2018-10-09 | Day surgery (SDC) | payer BC ==
[~2018-10-09] MED LIST changes: -DEXAMETHASONE SODIUM PHOSPHATE 10 MG in SODIUM CHLORIDE 50 ML IVPB ONE; -FOSAPREPITANT DIMEGLUMINE 150 MG in SODIUM CHLORIDE 150 ML IVPB ONE; -GEMCITABINE HCL IV ONE; -MAGNESIUM SULFATE IVPB ONE; -MANNITOL IVPB ONE; -PALONOSETRON HCL 0.25 MG/5 ML VIAL IVPUSH ONE; -POTASSIUM CHLORIDE IVPB ONE; -SODIUM CHLORIDE 1,000 ML IV ONE; -SODIUM CHLORIDE IV ONE; +TBO-FILGRASTIM 480 MCG/0.8 ML DISP.SYRIN SQ ONE; -[UNRECOGNIZED DRUG - OTHER] IVPB ONE
[2018-10-09 18:10] VITALS: BP 147/64; PULSE 70; TEMP 98
== END | disposition home or self-care (01) ==
LOC: JONCCHEMO 07:31
PROVIDERS: ATTEND Internal Medicine Hematology & Oncology
PROC: 3E013GC Introduction of Other Therapeutic Substance into Subcutaneous Tissue, Percutaneous Approach (ICD-10-PCS; principal; 2018-10-09)
DX: C23 Malignant neoplasm of gallbladder (principal); Z76.89 Persons encountering health services in other specified circumstances
CPT/HCPCS: 96372; J1447

== ENCOUNTER 2018-10-14 05:40 | Day surgery (SDC) | payer BC ==
[2018-10-14] MEDS ORDERED: MANNITOL IVPB ONE (08:00)
[2018-10-14] MEDS ORDERED: POTASSIUM CHLORIDE IVPB ONE (08:00)
[2018-10-14] MEDS ORDERED: MAGNESIUM SULFATE IVPB ONE (08:00)
[2018-10-14] MEDS ORDERED: [UNRECOGNIZED DRUG - OTHER] IVPB ONE (08:00)
[2018-10-14 09:03] LABS: BASO % 0.5 % (0-2.0); EOS % 0.1 % (0-4.5); HEMATOCRIT 35.5 % (35.4-49); HEMOGLOBIN 12.6 GM/dL (11.7-16.9); LYMPH % 21.7 % (8-40); MCH 32.3 pg (25.7-33.7); MCHC 35.4 g/dl (32.0-35.9); MEAN CELL VOLUME 91.3 fl (80-96); MEAN PLT VOLUME 7.8 fl (7.5-11.1); MONO % 11.4 % (3.8-10.2); NEUT % 66.3 % (42.8-82.8); PLATELET COUNT 293 K/MM3 (134-434); RBC 3.89 M/mm3 (4.00-5.60); RDW 14.1 % (11.9-15.9); WHITE BLOOD COUNT 5.1 K/mm3 (4.0-10.0)
[2018-10-14 09:21] LABS: ALBUMIN 3.7 g/dl (3.4-5.0); ALK PHOS 134 U/L (45-117); ANION GAP 6 MMOL/L (8-16); BILIRUBIN,DIRECT 0.1 mg/dL (0.0-0.2); BILIRUBIN,TOTAL 0.2 mg/dL (0.2-1); BLOOD UREA NITROGEN 14 mg/dL (7-18); CALCIUM 9.2 mg/dL (8.5-10.1); CHLORIDE 100 mmol/L (98-107); CO2 29 mmol/L (21-32); CREATININE 1.2 mg/dL (0.55-1.3); GLUCOSE,RANDOM 155 mg/dL (74-106); MAGNESIUM 1.7 mg/dL (1.8-2.4); POTASSIUM 4.6 mmol/L (3.5-5.1); SGOT/AST 66 U/L (15-37); SGPT/ALT 63 U/L (13-61); SODIUM 135 mmol/L (136-145); TOT PROT 7.3 g/dl (6.4-8.2)
[2018-10-14] MEDS ORDERED: FOSAPREPITANT DIMEGLUMINE 150 MG in SODIUM CHLORIDE 145 ML IVPB ONE (09:30)
[2018-10-14] MEDS ORDERED: PALONOSETRON HCL 0.25 MG/5 ML VIAL IVPUSH ONE (09:30)
[2018-10-14] MEDS ORDERED: DEXAMETHASONE SODIUM PHOSPHATE 10 MG in SODIUM CHLORIDE 50 ML IVPB ONE (09:30)
[2018-10-14] MEDS ORDERED: GEMCITABINE HCL IV ONE (10:00)
[2018-10-14] MEDS ORDERED: SODIUM CHLORIDE IV ONE (10:00)
[2018-10-14] MEDS ORDERED: MAGNESIUM OXIDE 400 MG TABLET (FP) PO ONE (10:30)
[2018-10-14] MEDS ORDERED: SODIUM CHLORIDE 1,000 ML IV ONE (11:00)
[2018-10-14 16:05] VITALS: TEMP 98
[2018-10-14] MEDS ORDERED: PORTA CATH FLUSH 10 ML IVPUSH ONE ×2 (16:05→16:36)
[2018-10-14 16:36] VITALS: BP 146/83; PULSE 78
== END 2018-10-14 16:25 | disposition home or self-care (01) ==
LOC: JONCCHEMO 05:40 → J7W 09:28 → JONCCHEMO 16:25
PROVIDERS: ATTEND Internal Medicine Hematology & Oncology
DX: Z51.11 Encounter for antineoplastic chemotherapy (principal); C23 Malignant neoplasm of gallbladder
CPT/HCPCS: 36415; 80048; 80076; 83735; 85025; 96361; 96367; 96375; 96413; 96417; J1453; J2469; J7030

== ENCOUNTER 2018-10-22 05:31 | Day surgery (SDC) | payer BC ==
[2018-10-22] MEDS ORDERED: TBO-FILGRASTIM 480 MCG/0.8 ML DISP.SYRIN SQ ONE (10:00)
[2018-10-22 18:14] VITALS: BP 160/56; PULSE 83; TEMP 97.4
== END 2018-10-22 18:19 | disposition home or self-care (01) ==
LOC: JONCCHEMO 05:31 → J7W 18:09 → JONCCHEMO 18:19
PROVIDERS: ATTEND Internal Medicine Hematology & Oncology
PROC: 3E013GC Introduction of Other Therapeutic Substance into Subcutaneous Tissue, Percutaneous Approach (ICD-10-PCS; principal; 2018-10-22)
DX: C23 Malignant neoplasm of gallbladder (principal); Z76.89 Persons encountering health services in other specified circumstances
CPT/HCPCS: 96372; J1447

== ENCOUNTER 2018-10-28 07:01 | Day surgery (SDC) | payer BC ==
[2018-10-28] MEDS ORDERED: MANNITOL IVPB ONE (08:00)
[2018-10-28] MEDS ORDERED: MAGNESIUM SULFATE IVPB ONE (08:00)
[2018-10-28] MEDS ORDERED: [UNRECOGNIZED DRUG - OTHER] IVPB ONE (08:00)
[2018-10-28] MEDS ORDERED: POTASSIUM CHLORIDE IVPB ONE (08:00)
[2018-10-28 09:14] LABS: BASO % 0.5 % (0-2.0); EOS % 0.5 % (0-4.5); HEMATOCRIT 33.4 % (35.4-49); HEMOGLOBIN 11.2 GM/dL (11.7-16.9); LYMPH % 23.5 % (8-40); MCH 31.8 pg (25.7-33.7); MCHC 33.7 g/dl (32.0-35.9); MEAN CELL VOLUME 94.4 fl (80-96); MEAN PLT VOLUME 8.1 fl (7.5-11.1); MONO % 21.1 % (3.8-10.2); NEUT % 54.4 % (42.8-82.8); PLATELET COUNT 205 K/MM3 (134-434); RBC 3.53 M/mm3 (4.00-5.60); RDW 14.9 % (11.9-15.9); WHITE BLOOD COUNT 4.7 K/mm3 (4.0-10.0)
[2018-10-28 09:47] LABS: ALBUMIN 3.9 g/dl (3.4-5.0); ALK PHOS 140 U/L (45-117); ANION GAP 8 MMOL/L (8-16); BILIRUBIN,DIRECT 0.1 mg/dL (0.0-0.2); BILIRUBIN,TOTAL 0.2 mg/dL (0.2-1); BLOOD UREA NITROGEN 15 mg/dL (7-18); CALCIUM 8.6 mg/dL (8.5-10.1); CHLORIDE 106 mmol/L (98-107); CO2 26 mmol/L (21-32); GLUCOSE,RANDOM 114 mg/dL (74-106); MAGNESIUM 1.9 mg/dL (1.8-2.4); POTASSIUM 4.8 mmol/L (3.5-5.1); SGOT/AST 34 U/L (15-37); SGPT/ALT 31 U/L (13-61); SODIUM 140 mmol/L (136-145)
[2018-10-28] MEDS ORDERED: DEXAMETHASONE INJECTION 10 MG in SODIUM CHLORIDE 50 ML IVPB ONE (10:00)
[2018-10-28] MEDS ORDERED: PALONOSETRON HCL 0.25 MG/5 ML VIAL IVPUSH ONE (10:00)
[2018-10-28] MEDS ORDERED: FOSAPREPITANT DIMEGLUMINE 150 MG in SODIUM CHLORIDE 150 ML IVPB ONE (10:00)
[2018-10-28] MEDS ORDERED: GEMCITABINE HCL IV ONE (11:00)
[2018-10-28] MEDS ORDERED: SODIUM CHLORIDE IV ONE (11:00)
[2018-10-28] MEDS ORDERED: SODIUM CHLORIDE 1,000 ML IV ONE (11:30)
[2018-10-28 12:03] LABS: ANISOCYTOSIS 2+; MACROCYTOSIS 0; PLATELET ESTIMATE NORMAL
[2018-10-28] MEDS ORDERED: PORTA CATH FLUSH 10 ML IVPUSH ONE ×2 (14:29→16:48)
[2018-10-28 16:48] VITALS: BP 143/81; PULSE 74
[2018-10-28 17:01] VITALS: TEMP 98
== END 2018-10-28 15:45 | disposition home or self-care (01) ==
LOC: JONCCHEMO 07:01 → J7W 09:39 → JONCCHEMO 15:45
PROVIDERS: ATTEND Internal Medicine Hematology & Oncology
DX: Z51.11 Encounter for antineoplastic chemotherapy (principal); C23 Malignant neoplasm of gallbladder
CPT/HCPCS: 36415; 80048; 80076; 83735; 85025; 96361; 96367; 96375; 96413; 96417; J1100; J1453; J2469; J7030

== ENCOUNTER 2018-11-04 07:05 | Day surgery (SDC) | payer BC ==
[2018-11-04] MEDS ORDERED: POTASSIUM CHLORIDE IVPB ONE (08:00)
[2018-11-04] MEDS ORDERED: MAGNESIUM SULFATE IVPB ONE (08:00)
[2018-11-04] MEDS ORDERED: MANNITOL IVPB ONE (08:00)
[2018-11-04] MEDS ORDERED: [UNRECOGNIZED DRUG - OTHER] IVPB ONE (08:00)
[2018-11-04 08:37] LABS: BASO % 1.2 % (0-2.0); EOS % 0.3 % (0-4.5); HEMATOCRIT 31.7 % (35.4-49); HEMOGLOBIN 11.1 GM/dL (11.7-16.9); LYMPH % 25.2 % (8-40); MCH 32.7 pg (25.7-33.7); MCHC 35.1 g/dl (32.0-35.9); MEAN CELL VOLUME 93.2 fl (80-96); MEAN PLT VOLUME 7.9 fl (7.5-11.1); MONO % 9.3 % (3.8-10.2); PLATELET COUNT 239 K/MM3 (134-434); RDW 15.5 % (11.9-15.9); WHITE BLOOD COUNT 4.9 K/mm3 (4.0-10.0)
[2018-11-04 09:09] LABS: ALK PHOS 131 U/L (45-117); ANION GAP 4 MMOL/L (8-16); BILIRUBIN,DIRECT 0.1 mg/dL (0.0-0.2); BILIRUBIN,TOTAL 0.3 mg/dL (0.2-1); BLOOD UREA NITROGEN 26 mg/dL (7-18); CHLORIDE 104 mmol/L (98-107); CO2 30 mmol/L (21-32); CREATININE 1.3 mg/dL (0.55-1.3); GLUCOSE,RANDOM 142 mg/dL (74-106); MAGNESIUM 2.1 mg/dL (1.8-2.4); POTASSIUM 4.6 mmol/L (3.5-5.1); SGOT/AST 46 U/L (15-37); SGPT/ALT 44 U/L (13-61); SODIUM 138 mmol/L (136-145); TOT PROT 7.4 g/dl (6.4-8.2)
[2018-11-04] MEDS ORDERED: PALONOSETRON HCL 0.25 MG/5 ML VIAL IVPUSH ONE (10:00)
[2018-11-04] MEDS ORDERED: FOSAPREPITANT DIMEGLUMINE 150 MG in SODIUM CHLORIDE 150 ML IVPB ONE (10:00)
[2018-11-04] MEDS ORDERED: DEXAMETHASONE SODIUM PHOSPHATE 10 MG in SODIUM CHLORIDE 50 ML IVPB ONE (10:00)
[2018-11-04] MEDS ORDERED: SODIUM CHLORIDE IV ONE (11:00)
[2018-11-04] MEDS ORDERED: GEMCITABINE HCL IV ONE (11:00)
[2018-11-04] MEDS ORDERED: SODIUM CHLORIDE 1,000 ML IV ONE (11:30)
[2018-11-04 11:37] LABS: ANISOCYTOSIS 0; MACROCYTOSIS 0; PLATELET ESTIMATE NORMAL
[2018-11-04 15:21] VITALS: TEMP 97.5
[2018-11-04] MEDS ORDERED: PORTA CATH FLUSH 10 ML IVPUSH ONE (18:10)
[2018-11-04 18:20] VITALS: BP 145/87; PULSE 70
== END 2018-11-04 17:05 | disposition home or self-care (01) ==
LOC: JONCCHEMO 07:05 → J7W 08:07 → JONCCHEMO 17:05
PROVIDERS: ATTEND Internal Medicine Hematology & Oncology
DX: Z51.11 Encounter for antineoplastic chemotherapy (principal); C23 Malignant neoplasm of gallbladder
CPT/HCPCS: 36415; 80048; 80076; 83735; 85025; 96361; 96367; 96375; 96413; 96417; J1453; J2469; J7030

== ENCOUNTER 2018-11-18 07:05 | Day surgery (SDC) | payer BC ==
[2018-11-18] MEDS ORDERED: [UNRECOGNIZED DRUG - OTHER] IVPB ONE (08:00)
[2018-11-18] MEDS ORDERED: MANNITOL IVPB ONE (08:00)
[2018-11-18] MEDS ORDERED: MAGNESIUM SULFATE IVPB ONE (08:00)
[2018-11-18] MEDS ORDERED: POTASSIUM CHLORIDE IVPB ONE (08:00)
[2018-11-18 08:31] VITALS: PULSE 66; TEMP 97.9
[2018-11-18 08:47] LABS: BASO % 0.6 % (0-2.0); EOS % 2.1 % (0-4.5); HEMATOCRIT 30.7 % (35.4-49); HEMOGLOBIN 10.7 GM/dL (11.7-16.9); LYMPH % 19.3 % (8-40); MCH 33.4 pg (25.7-33.7); MCHC 34.9 g/dl (32.0-35.9); MEAN CELL VOLUME 95.8 fl (80-96); MONO % 18.4 % (3.8-10.2); NEUT % 59.6 % (42.8-82.8); PLATELET COUNT 158 K/MM3 (134-434); RBC 3.21 M/mm3 (4.00-5.60); RDW 17.9 % (11.9-15.9); WHITE BLOOD COUNT 5.3 K/mm3 (4.0-10.0)
[2018-11-18 09:13] LABS: ALBUMIN 3.7 g/dl (3.4-5.0); ALK PHOS 119 U/L (45-117); ANION GAP 4 MMOL/L (8-16); BILIRUBIN,TOTAL 0.2 mg/dL (0.2-1); BLOOD UREA NITROGEN 16 mg/dL (7-18); CALCIUM 8.6 mg/dL (8.5-10.1); CHLORIDE 107 mmol/L (98-107); CO2 29 mmol/L (21-32); CREATININE 1.2 mg/dL (0.55-1.3); GLUCOSE,RANDOM 96 mg/dL (74-106); POTASSIUM 4.7 mmol/L (3.5-5.1); SGOT/AST 35 U/L (15-37); SGPT/ALT 29 U/L (13-61); SODIUM 140 mmol/L (136-145); TOT PROT 6.9 g/dl (6.4-8.2)
[2018-11-18 09:16] LABS: ALBUMIN 3.6 g/dl (3.4-5.0); BILIRUBIN,DIRECT 0.1 mg/dL (0.0-0.2); BILIRUBIN,TOTAL 0.3 mg/dL (0.2-1); MAGNESIUM 1.9 mg/dL (1.8-2.4); TOT PROT 6.8 g/dl (6.4-8.2)
[2018-11-18] MEDS ORDERED: DEXAMETHASONE SODIUM PHOSPHATE 10 MG in SODIUM CHLORIDE 50 ML IVPB ONE (10:00)
[2018-11-18] MEDS ORDERED: PALONOSETRON HCL 0.25 MG/5 ML VIAL IVPUSH ONE (10:00)
[2018-11-18] MEDS ORDERED: FOSAPREPITANT DIMEGLUMINE 150 MG in SODIUM CHLORIDE 150 ML IVPB ONE (10:00)
[2018-11-18] MEDS ORDERED: GEMCITABINE HCL IV ONE (11:00)
[2018-11-18] MEDS ORDERED: SODIUM CHLORIDE IV ONE (11:00)
[2018-11-18] MEDS ORDERED: SODIUM CHLORIDE 1,000 ML IV ONE (11:30)
[2018-11-18] MEDS ORDERED: PORTA CATH FLUSH 10 ML IVPUSH ONE (14:07)
[2018-11-18] MEDS ORDERED: amLODIPine BESYLATE 5 MG TABLET (FP) PO ONE (16:00)
[2018-11-18 16:19] VITALS: BP 158/75
== END 2018-11-18 15:45 | disposition home or self-care (01) ==
LOC: JONCCHEMO 07:05 → J7W 09:09 → JONCCHEMO 15:45
PROVIDERS: ATTEND Internal Medicine Hematology & Oncology
DX: Z51.11 Encounter for antineoplastic chemotherapy (principal); C23 Malignant neoplasm of gallbladder
CPT/HCPCS: 36415; 80053; 80076; 83735; 85025; 96361; 96367; 96375; 96413; 96417; J1453; J2469; J7030

== ENCOUNTER 2018-11-25 05:45 | Day surgery (SDC) | payer BC ==
[2018-11-25] MEDS ORDERED: MANNITOL IVPB ONE (08:00)
[2018-11-25] MEDS ORDERED: [UNRECOGNIZED DRUG - OTHER] IVPB ONE (08:00)
[2018-11-25] MEDS ORDERED: POTASSIUM CHLORIDE IVPB ONE (08:00)
[2018-11-25] MEDS ORDERED: MAGNESIUM SULFATE IVPB ONE (08:00)
[2018-11-25 09:13] LABS: BASO % 0.8 % (0-2.0); EOS % 0.8 % (0-4.5); HEMOGLOBIN 11.2 GM/dL (11.7-16.9); LYMPH % 30.8 % (8-40); MCH 33.3 pg (25.7-33.7); MEAN CELL VOLUME 95.3 fl (80-96); MEAN PLT VOLUME 7.3 fl (7.5-11.1); MONO % 9.7 % (3.8-10.2); NEUT % 57.9 % (42.8-82.8); PLATELET COUNT 158 K/MM3 (134-434); RBC 3.36 M/mm3 (4.00-5.60); RDW 17.5 % (11.9-15.9); WHITE BLOOD COUNT 3.5 K/mm3 (4.0-10.0)
[2018-11-25] MEDS ORDERED: FOSAPREPITANT DIMEGLUMINE 150 MG in SODIUM CHLORIDE 145 ML IVPB ONE (09:30)
[2018-11-25] MEDS ORDERED: DEXAMETHASONE SODIUM PHOSPHATE 10 MG in SODIUM CHLORIDE 50 ML IVPB ONE (09:30)
[2018-11-25] MEDS ORDERED: PALONOSETRON HCL 0.25 MG/5 ML VIAL IVPUSH ONE (09:30)
[2018-11-25 09:46] LABS: BILIRUBIN,DIRECT 0.1 mg/dL (0.0-0.2); BILIRUBIN,TOTAL 0.2 mg/dL (0.2-1); MAGNESIUM 1.6 mg/dL (1.8-2.4)
[2018-11-25] MEDS ORDERED: SODIUM CHLORIDE IV ONE (10:00)
[2018-11-25] MEDS ORDERED: MAGNESIUM OXIDE 400 MG TABLET (FP) PO ONE ×2 (10:00→15:00)
[2018-11-25] MEDS ORDERED: GEMCITABINE HCL IV ONE (10:00)
[2018-11-25 10:43] LABS: ALBUMIN 3.9 g/dl (3.4-5.0); ALK PHOS 133 U/L (45-117); ANION GAP 8 MMOL/L (8-16); BILIRUBIN,TOTAL 0.2 mg/dL (0.2-1); BLOOD UREA NITROGEN 26 mg/dL (7-18); CALCIUM 8.8 mg/dL (8.5-10.1); CHLORIDE 106 mmol/L (98-107); CO2 26 mmol/L (21-32); CREATININE 1.3 mg/dL (0.55-1.3); GLUCOSE,RANDOM 107 mg/dL (74-106); POTASSIUM 4.7 mmol/L (3.5-5.1); SGOT/AST 44 U/L (15-37); SGPT/ALT 36 U/L (13-61); SODIUM 139 mmol/L (136-145); TOT PROT 7.2 g/dl (6.4-8.2)
[2018-11-25] MEDS ORDERED: SODIUM CHLORIDE 1,000 ML IV ONE (11:00)
[2018-11-25 11:18] LABS: ANISOCYTOSIS 1+; MACROCYTOSIS 0; PLATELET ESTIMATE NORMAL
[2018-11-25 17:13] VITALS: TEMP 97.6
[2018-11-25] MEDS ORDERED: PORTA CATH FLUSH 10 ML IVPUSH ONE (17:13)
[2018-11-25 17:15] VITALS: BP 163/84; PULSE 75
== END 2018-11-25 17:18 | disposition home or self-care (01) ==
LOC: JONCCHEMO 05:45 → J7W 09:41 → JONCCHEMO 17:18
PROVIDERS: ATTEND Internal Medicine Hematology & Oncology
DX: Z51.11 Encounter for antineoplastic chemotherapy (principal); C23 Malignant neoplasm of gallbladder
CPT/HCPCS: 36415; 80053; 80076; 83735; 85025; 96361; 96367; 96375; 96413; 96417; J1453; J2469; J7030

== ENCOUNTER 2019-01-09 08:06 | Inpatient (IN) | payer BC ==
[2019-01-09] MEDS ORDERED: SODIUM CHLORIDE 1,000 ML IV STA (09:21)
[2019-01-09] MEDS ORDERED: ONDANSETRON 4 MG/2 ML VIAL IVPUSH ONE (09:22)
--- NOTE | 2019-01-09 10:16 | PDOC ---
History of Present Illness - General Chief Complaint: Weakness Stated Complaint: SENT BY PCP // NOT FEELING WELL Time Seen by Provider: 01/09/19 09:19 History Source: Patient Exam Limitations: No Limitations - History of Present Illness Initial Comments: 01/09/19 10:29 53 y/o male presents to the ED for evaluation of weakness, poor appetite, jaundice, and yellowish in eyes. Pt with hx of gallbladder ca with liver mets dx 'd in 2016 and is under the care of Dr. Kc. Pt states last chemo 3 weeks ago. Pt denies fever, chills, diarrhea, constipation, abd pain, cough, or urinary complaints. Timing/Duration: unsure, other (2 days) Severity: mild Associated Symptoms: reports: loss of appetite, nausea/vomiting, weakness Past History - Travel Traveled outside of the country in the last 30 days: No Close contact w/someone who was outside of country & ill: No - Past Medical History Allergies/Adverse Reactions: Allergies Allergy/AdvReac Type Severity Reaction Status Date / Time No Known Allergies Allergy Verified 01/09/19 08:17 Home Medications: Ambulatory Orders Glipizide/Metformin HCl [Glipizide-Metformin 5-500 mg] 1 each PO BID 06/05/16 Cholecalciferol (Vitamin D3) [Vitamin D3 -] 400 unit PO DAILY 08/19/17 Ferrous Sulfate 325 mg PO DAILY 08/19/17 Anemia: Yes Asthma: No Cancer: Yes (Gall Bladder) CVA: No COPD: No Dementia: No Diabetes: Yes GI Disorders: Yes (COLITIS,HEMORROIDS) Disorders: No HTN: No Hypercholesterolemia: No Liver Disease: Yes (liver mets) Seizures: No Thyroid Disease: No - Surgical History Abdominal Surgery: No Appendectomy: Yes Cardiac Surgery: No Cholecystectomy: Yes (06/2106) Lung Surgery: No Neurologic Surgery: No Orthopedic Surgery: No - Immunization History Immunization Up to Date: Yes - Suicide/Smoking/Psychosocial Hx Smoking History: Never smoked Have you smoked in the past 12 months: No Hx Alcohol Use: No Drug/Substance Use Hx: No Substance Use Type: None Hx Substance Use Treatment: No Patient Lives Alone: No Lives with/in: spouse/SO Review of Systems - Review of Systems Able to Perform ROS?: No Is the patient limited Setswana proficient: No Constitutional: Yes: Loss of Appetite, Weakness HEENTM: No: Symptoms Reported Respiratory: No: Symptoms reported Cardiac (ROS): No: Symptoms Reported ABD/GI: Yes: Symptoms Reported, Nausea, Poor Appetite, Poor Fluid Intake. No: Constipated, Diarrhea : No: Symptoms Reported Musculoskeletal: No: Symptoms Reported Integumentary: No: Symptoms Reported Neurological: No: Symptoms reported Endocrine: No: Symptoms Reported Hematologic/Lymphatic: No: Symptoms Reported *Physical Exam - Vital Signs Last Vital Signs Temp Pulse Resp BP Pulse Ox 98.2 F 76 16 133/76 98 01/09/19 08:18 01/09/19 08:18 01/09/19 08:18 01/09/19 08:18 01/09/19 08:18 - Physical Exam General Appearance: Yes: Nourished, Appropriately Dressed. No: Apparent Distress HEENT: positive: EOMI, BENJAMIN, TMs Normal, Pharynx Normal, Scleral Icterus (R), Scleral Icterus (L) Neck: positive: Supple Respiratory/Chest: positive: Lungs Clear, Normal Breath Sounds. negative: Respiratory Distress, Accessory Muscle Use Cardiovascular: positive: Regular Rhythm, Regular Rate. negative: Murmur Gastrointestinal/Abdominal: positive: Soft. negative: Tenderness Musculoskeletal: negative: CVA Tenderness Extremity: positive: Normal Capillary Refill. negative: Pedal Edema Integumentary: positive: Warm, Jaundice, Moist Neurologic: positive: Motor Strength 5/5 (ambulatory) Heart Score/ECG Review - ECG Intrepretation Rhythm: Regular Rhythm (Sinus rhythm 67. No ST elevation or depression no changes since 2016) ED Treatment Course - LABORATORY CBC & Chemistry Diagram: 01/09/19 10:41 01/09/19 10:41 - RADIOLOGY Radiology Studies Ordered: Category Date Time Status HEAD CT WITHOUT CONTRAST [CT] Stat CT Scan 01/09/19 09:20 Ordered CHEST - PA [RAD] Stat Radiology 01/09/19 09:21 Taken Medical Decision Making - Medical Decision Making 01/09/19 10:23 CC: weakness, nausea, and jaundice x 2 days, also c./o of throbbing frontal h/a , hx of liver/ gallbladder ca, receives chemo from Dr. Kc Exam: Scleral icterus and jaundice, No abd distention, bs + x 4, Plan: labs, urine, ivf, Motrin for h/a, head ct, and will consult Dr. Kc 01/09/19 12:53 Laboratory Tests 01/09/19 01/09/19 01/09/19 10:41 10:41 10:41 Hgb 12.2 Hct 36.0 Neutrophils % 75.5 Sodium 129 L Potassium 5.9 H Chloride 101 Carbon Dioxide 24 Anion Gap 5 L BUN 22 H Creatinine 1.3 Random Glucose 194 H AST 71 H ALT 83 H Alkaline Phosphatase 302 H Lipase Urine Bilirubin 2+ H Ur Leukocyte Esterase Trace Urine RBC (Auto) 2 01/09/19 10:41 Hgb Hct Neutrophils % Sodium Potassium Chloride Carbon Dioxide Anion Gap BUN Creatinine Random Glucose AST ALT Alkaline Phosphatase Lipase 193 Urine Bilirubin Ur Leukocyte Esterase Urine RBC (Auto) 01/09/19 13:12 Patient ordered for Kayexalate. Patient also given 1 L of normal saline upon ED arrival. Head CT negative for acute pathology. Chest x-ray negative. Case discussed with Dr. Kc is recommending abdominal and chest CT with contrast. He states patient was denied a PET scan to check for metastasis and if the CT shows no extrahepatic cellular involvement patient will be recommended to have IR perform procedure for metastases removal. Patient will be admitted secondary to elevated bilirubin which Dr. Kc states is new. Patient also be admitted for hyperkalemia , weakness and management. call placed to dr. hilliard 01/09/19 13:[address] Zaidi and will admit to telemetry secondary to elevated potassium. Consult also placed to [facility]. *DC/Admit/Observation/Transfer Diagnosis at time of Disposition: Cancer, Weakness, Elevated bilirubin, Hyperkalemia - Discharge Dispostion Decision to Admit order: Yes - Referrals - Patient Instructions - Post Discharge Activity
[2019-01-09] MEDS ORDERED: IBUPROFEN 600 MG TABLET (FP) PO ONE (10:36)
[2019-01-09] MEDS ORDERED: ONDANSETRON 4 MG/2 ML VIAL ONE (10:36)
[2019-01-09] MEDS: IBUPROFEN 600 MG TABLET (FP) PO ONE ×2 (10:38→10:54)
[2019-01-09 10:58] LABS: BASO % 0.8 % (0-2.0); EOS % 1.2 % (0-4.5); HEMOGLOBIN 12.2 GM/dL (11.7-16.9); LYMPH % 12.5 % (8-40); MCH 33.4 pg (25.7-33.7); MCHC 33.9 g/dl (32.0-35.9); MEAN CELL VOLUME 98.5 fl (80-96); MEAN PLT VOLUME 8.5 fl (7.5-11.1); NEUT % 75.5 % (42.8-82.8); PLATELET COUNT 195 K/MM3 (134-434); RBC 3.66 M/mm3 (4.00-5.60); RDW 16.6 % (11.9-15.9)
[2019-01-09 11:01] LABS: EPI CELLS 0.1 /HPF (0-5); URINE APPEARANCE CLEAR; URINE BACTERIA 0 /hpf (NEGATIVE); URINE BILIRUBIN 2+ (NEGATIVE); URINE CASTS 1 /hpf (0-8); URINE COLOR DK YELLOW; URINE GLUCOSE (UA) NEGATIVE (NEGATIVE); URINE KETONE NEGATIVE (NEGATIVE); URINE LEUK ESTERASE TRACE (NEGATIVE); URINE NITRITE NEGATIVE (NEGATIVE); URINE PROTEIN NEGATIVE (NEGATIVE); URINE RBC 2 /hpf (0-4); URINE UROBILINOGEN 0.2 mg/dL (0.2-1.0); URINE WBC 0 /hpf (0-5)
[2019-01-09 11:09] LABS: INR 1.01 (0.83-1.09); PROTHROMBIN TIME (PATIENT) 11.9 SEC (9.7-13.0)
[2019-01-09 11:41] LABS: ALBUMIN 3.7 g/dl (3.4-5.0); ALK PHOS 302 U/L (45-117); ANION GAP 5 MMOL/L (8-16); BILIRUBIN,TOTAL 6.6 mg/dL (0.2-1); BILIRUBIN,TOTAL 6.7 mg/dL (0.2-1); BLOOD UREA NITROGEN 22 mg/dL (7-18); CALCIUM 9.1 mg/dL (8.5-10.1); CHLORIDE 101 mmol/L (98-107); CO2 24 mmol/L (21-32); CREATININE 1.3 mg/dL (0.55-1.3); GLUCOSE,RANDOM 194 mg/dL (74-106); MAGNESIUM 2.3 mg/dL (1.8-2.4); POTASSIUM 5.9 mmol/L (3.5-5.1); SGOT/AST 71 U/L (15-37); SGPT/ALT 83 U/L (13-61); SODIUM 129 mmol/L (136-145); TOT PROT 7.9 g/dl (6.4-8.2)
[2019-01-09] MEDS ORDERED: SODIUM POLYSTYRENE SULFONATE 15 GM/60 ML BOTTLE PO ONE (11:46)
[2019-01-09] MEDS ORDERED: SODIUM POLYSTYRENE SULFONATE 15 GM/60 ML BOTTLE ONE (12:15)
--- NOTE | 2019-01-09 12:24 | EKG ---
Test Reason : Blood Pressure : / mmHG Vent. Rate : 067 BPM Atrial Rate : 067 BPM P-R Int : 142 ms QRS Dur : 072 ms QT Int : 412 ms P-R-T Axes : 009 023 036 degrees QTc Int : 435 ms POOR DATA QUALITY, INTERPRETATION MAY BE ADVERSELY AFFECTED NORMAL SINUS RHYTHM NORMAL ECG WHEN COMPARED WITH ECG OF 05-JUN-2016 18:15, NO SIGNIFICANT CHANGE WAS FOUND Confirmed by OPAL FERNANDES, KEILY ([id number]) on 01/09/2019 12:23:49 PM Referred By: Confirmed By:KEILY JOSEPH MD
--- NOTE | 2019-01-09 14:23 | CONSULT ---
Consultation: HEMATOLOGY/ONCOLOGY CONSULTATION CONSULT REQUEST: We have been asked to medically evaluate this patient for gallbladder carcinoma HISTORY OF PRESENT ILLNESS: 53 year old male with a past medical history of metastatic gallbladder CA with liver mets, colitis, and DMII presented to the ED with the complaint of scleral icterus and jaundice. Patient reports that he received an outpatient CT scan 4 days ago, and then progressively developed scleral icterus starting Saturday. Reports that it has mildly improved since it initially started. States that besides his eyes, his skin has been more yellow than usual / very itchy, and his urine has been darker. Also reports that his stool has been white. Reports feeling more tired than usual and more dizzy. Denies any chest pain or shortness of breath. Denies fevers, chills, nausea, vomiting, diarrhea. Denies recent travel or sick contacts. 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 Oncologic History: 07/22: T2, N1 adeno of gallbladder discovered during cholecystectomy for cholecystitis -CT chest/MRI abdomen negative for mets 08/22: Dx as invasive gallbladder adenocarcinoma w/ papillary features, moderately differentiated -T2N1 gallbladder CA with farideh and liver mets, s/p extended resection after cholecystectomy 09/21: started xeloda and radiation therapy 03/23: No evidence of recurrence on CT scan, stable pulmonary nodules 07/23: questionable liver lesions, rising tumor markers 08/23: biopsy of liver positive liver metastatic lesions 10/14/17: started cisplatin and gemzar; 6 cycles with last cycle 03/19/1803/24: CT scan showed increased liver metastatic lesions 03/24: PET scan: liver mets that do not demonstrate increased metabolic activity , 2.6cm lesion near dome of R lobe of liver MRI 05/18/18: 3 masses in L lobe of liver and 2 smaller lesions in right lobe MRI 08/31/18: stable -patient received 13 cycles of cisplatin/gemzar through august 12 2018 -switched to FOLFOX REVIEW OF SYSTEMS: CONSTITUTIONAL: generalized weakness Absent: fever, chills, diaphoresis, malaise, loss of appetite, weight change HEENT: Icterus Absent: rhinorrhea, nasal congestion, throat pain, throat swelling, difficulty swallowing, mouth swelling, ear pain, eye pain, visual changes CARDIOVASCULAR: Absent: chest pain, syncope, palpitations, irregular heart rate, lightheadedness , peripheral edema RESPIRATORY: Absent: cough, shortness of breath, dyspnea with exertion, orthopnea, wheezing, stridor, hemoptysis GASTROINTESTINAL: white stool Absent: abdominal pain, abdominal distension, nausea, vomiting, diarrhea, constipation, melena, hematochezia GENITOURINARY: Absent: dysuria, frequency, urgency, hesitancy, hematuria, flank pain, genital pain MUSCULOSKELETAL: Absent: myalgia, arthralgia, joint swelling, back pain, neck pain SKIN: itching, yellow skin Absent: rash, pallor HEMATOLOGIC/IMMUNOLOGIC: Absent: easy bleeding, easy bruising, lymphadenopathy, frequent infections ENDOCRINE: Absent: unexplained weight gain, unexplained weight loss, heat intolerance, cold intolerance NEUROLOGIC: Absent: headache, focal weakness or paresthesias, dizziness, unsteady gait, seizure, mental status changes, bladder or bowel incontinence PSYCHIATRIC: Absent: anxiety, depression, suicidal or homicidal ideation, hallucinations. PHYSICAL EXAMINATION Vital Signs - 24 hr 01/09/19 01/09/19 01/09/19 08:18 09:30 12:40 Temperature 98.2 F 97.2 F L Pulse Rate 76 Pulse Rate [ 68 Apical] Respiratory 16 20 Rate Blood Pressure 133/76 Blood Pressure 119/75 [Right Arm] O2 Sat by Pulse 98 98 99 Oximetry (%) GENERAL: A&Ox3, no acute distress EYES: PERRLA, EOMI, scleral icterus noted on exam ENT: Moist mucus membranes, jaundice on inferior surface of tongue NECK: No JVD, no lymphadenopathy palpated BREAST: no masses or nodules palpated LUNGS: CTA, no wheezes HEART: RRR, no murmurs ABDOMEN: Soft, nontender, BS present, large vertical well-healed incision scar noted on abdomen MUSCULOSKELETAL: No CVA Tenderness EXTREMITIES: 2+ pulses, no edema. NEUROLOGICAL: Cranial nerves II-XII intact. No focal deficits SKIN: Generalized jaundice noted Laboratory Results - last 24 hr 01/09/19 01/09/19 01/09/19 10:41 10:41 10:41 WBC 8.0 RBC 3.66 L Hgb 12.2 Hct 36.0 MCV 98.5 H MCH 33.4 MCHC 33.9 RDW 16.6 H Plt Count 195 D MPV 8.5 Absolute Neuts (auto) 6.1 Neutrophils % 75.5 Lymphocytes % 12.5 Monocytes % 10.0 Eosinophils % 1.2 Basophils % 0.8 Nucleated RBC % 0 PT with INR 11.90 INR 1.01 Sodium 129 L Potassium 5.9 H Chloride 101 Carbon Dioxide 24 Anion Gap 5 L BUN 22 H Creatinine 1.3 Creat Clearance w eGFR 57.31 Random Glucose 194 H Calcium 9.1 Magnesium 2.3 Total Bilirubin 6.7 H AST 71 H ALT 83 H Alkaline Phosphatase 302 H Total Protein 7.9 Albumin 3.7 Lipase Urine Color Urine Appearance Urine pH Ur Specific Otis Urine Protein Urine Glucose (UA) Urine Ketones Urine Blood Urine Nitrite Urine Bilirubin Urine Urobilinogen Ur Leukocyte Esterase Urine WBC (Auto) Urine RBC (Auto) Urine Casts (Auto) U Epithel Cells (Auto) Urine Bacteria (Auto) 01/09/19 01/09/19 01/09/19 10:41 10:41 10:41 WBC RBC Hgb Hct MCV MCH MCHC RDW Plt Count MPV Absolute Neuts (auto) Neutrophils % Lymphocytes % Monocytes % Eosinophils % Basophils % Nucleated RBC % PT with INR INR Sodium Potassium Chloride Carbon Dioxide Anion Gap BUN Creatinine Creat Clearance w eGFR Random Glucose Calcium Magnesium Total Bilirubin 6.6 H AST ALT Alkaline Phosphatase Total Protein Albumin Lipase 193 Urine Color Dk yellow Urine Appearance Clear Urine pH 5.0 Ur Specific Otis 1.016 Urine Protein Negative Urine Glucose (UA) Negative Urine Ketones Negative Urine Blood Negative Urine Nitrite Negative Urine Bilirubin 2+ H Urine Urobilinogen 0.2 Ur Leukocyte Esterase Trace Urine WBC (Auto) 0 Urine RBC (Auto) 2 Urine Casts (Auto) 1 U Epithel Cells (Auto) 0.1 Urine Bacteria (Auto) 0 ASSESSMENT/PLAN: 53 year old male with a past medical history of metastatic gallbladder CA with liver mets, colitis, and DMII presented to the ED with the complaint of scleral icterus and jaundice. Scleral Icterus and Jaundice: with an elevated T bili and liver metastatic lesions on previous scan, concern for biliary obstruction from mass lesion, slightly improving -direct bili ordered -CT abdomen/pelvis ordered Hyperkalemia/Hyponatremia: -kayexalate given -fluid hydration Dispo: We will continue to follow the patient. Thank you for this consultative opportunity. Sherman Vázquez, PGY2 Discussed with Dr. Kc Visit type - Emergency Visit Emergency Visit: Yes ED Registration Date: 01/09/19 Care time: The patient presented to the Emergency Department on the above date and was hospitalized for further evaluation of their emergent condition. - New Patient This patient is new to me today: Yes Date on this admission: 01/09/19 - Critical Care Critical Care patient: No
--- NOTE | 2019-01-09 14:55 | PN ---
Teaching Attending Note Name of Resident: Sherman Vázquez ATTENDING PHYSICIAN STATEMENT I saw and evaluated the patient. I reviewed the resident's note and discussed the case with the resident. I agree with the resident's findings and plan as documented. SUBJECTIVE: Well known to me. T2,N1 adenoca of GB found at time of surgery for cholecystitis on 07/26/16. MRI of liver , negative for mets. On 08/26/16 Ro resection for invasive gall bladder ca with papillary features . Had farideh and liver mets at time of resection. Had extended resection after cholecystectomy On 09/25/16 RT and Xeloda begun. On CT - no recurrence , but staable pulmonary nodules. On 07/2017 CT liver mets- biopsy proven. 10/14/17 started cisplatinum and gemzar. On 03/2018 PET with liver mets with no uptake, but one lesion in dome. Continued on [facility] [place] - gemzar .. Progression of disease and switched to FOLFOX Recent MRI of liver with progression and rising tumor markers. Contacted me with jaundice, dark urine and light stools which recently occurred. ROS- tired weak, anorechtic weight loss PMH DM(II) HBP Last Vital Signs Temp Pulse Resp BP Pulse Ox 97.2 F L 68 20 119/75 99 01/09/19 12:40 01/09/19 12:40 01/09/19 12:40 01/09/19 12:40 01/09/19 12:40 HEENT: RON, EOM Intact,icteric Oropharynx: No thrush, No mucositis Neck: Supple Nodes: Without adenopathy Cor: RSR, No murmurs, No gallops Lungs: Clear to P&A Abd: Soft, Normal bowel sounds,Livr-7 cm below RCM, surgical scars Ext:No significant edema Skin: No rashes, Integument intact CBC, BMP 01/09/19 10:41 01/09/19 10:41 Impression: Progressive metastatic GB ca with liver METS New onset of Jaundice - to R/O biliary obstruction vs diffuse mets. Pending results of CT and determination of presence or not of extrahepatic mets to decide about further therapy Hyperkalemia- for kayexalate. DM- for BGM and monitoring with oral agents OBJECTIVE: ASSESSMENT AND PLAN:
[2019-01-09] MEDS ORDERED: ONDANSETRON 4 MG/2 ML VIAL IVPUSH PRN (16:36)
[2019-01-09 16:41] LABS: BILIRUBIN,DIRECT 5.1 mg/dL (0.0-0.2)
[2019-01-09] MEDS ORDERED: MORPHINE SULFATE 2 MG/ML VIAL IVPUSH PRN (16:41)
--- NOTE | 2019-01-09 16:42 | HP ---
Admitting History and Physical - Admission History of Present Illness: 53 y/o male presents to the ED for evaluation of weakness, poor appetite, jaundice, and yellowish in eyes. Pt with hx of gallbladder ca with liver mets dx 'd in 2016 and is under the care of Dr. Kc. Pt states last chemo 3 weeks ago. Pt denies fever, chills, diarrhea, constipation, abd pain, cough, or urinary complaints. in ER zofran ,kayxelate ivf labs noted na [address] scan done History Source: Patient - Past Medical History Cardiovascular: Yes: HTN, Hyperlipdemia Gastrointestinal: Yes: Other (Colitis- last episode in 2004, hospitalized and treated at [facility]) Endocrine: Yes: Diabetes Mellitus - Past Surgical History Past Surgical History: Yes: Appendectomy - Smoking History Smoking history: Never smoked Have you smoked in the past 12 months: No - Alcohol/Substance Use Hx Alcohol Use: No Home Medications - Allergies Allergies/Adverse Reactions: Allergies Allergy/AdvReac Type Severity Reaction Status Date / Time No Known Allergies Allergy Verified 01/09/19 08:17 - Home Medications Home Medications: Ambulatory Orders Unobtainable 01/09/19 Review of Systems - Review of Systems Constitutional: reports: Weakness, Other (tired) Cardiovascular: reports: No Symptoms Respiratory: reports: No Symptoms Gastrointestinal: reports: No Symptoms Genitourinary: reports: No Symptoms Physical Examination Vital Signs: Vital Signs Temperature 97.2 F L 01/09/19 12:40 Pulse Rate 68 01/09/19 12:40 Respiratory Rate 20 01/09/19 12:40 Blood Pressure 119/75 01/09/19 12:40 O2 Sat by Pulse Oximetry (%) 99 01/09/19 12:40 Eyes: Yes: Sclera Icterus Cardiovascular: Yes: Regular Rate and Rhythm, S1, S2 Respiratory: Yes: CTA Bilaterally Gastrointestinal: Yes: Normal Bowel Sounds, Soft, Hepatomegaly, Other (surigcla scar) Edema: No Neurological: Yes: Alert, Oriented Labs: CBC, BMP 01/09/19 10:41 01/09/19 10:41 Imaging - Results Cat Scan: Pending Problem List - Problems (1) Elevated bilirubin Assessment/Plan: ct scan pending heme on board Code(s): R17 - UNSPECIFIED JAUNDICE (2) Hyperkalemia Assessment/Plan: kayxelate repeatl abs Code(s): E87.5 - HYPERKALEMIA (3) Hyponatremia Assessment/Plan: ivf repeat labs renal Code(s): E87.1 - HYPO-OSMOLALITY AND HYPONATREMIA (4) Diabetes mellitus Assessment/Plan: bgm hgba1c sliding scale Code(s): E11.9 - TYPE 2 DIABETES MELLITUS WITHOUT COMPLICATIONS Qualifiers: Diabetes mellitus type: type 2 Diabetes mellitus fdc insulin use: without intermediate teacher use Diabetes mellitus complication status: without complication Qualified Code(s): E11.9 - Type 2 diabetes mellitus without complications (5) Cancer Assessment/Plan: oncology on board ctscan pending dvt px Code(s): C80.1 - MALIGNANT (PRIMARY) NEOPLASM, UNSPECIFIED
[2019-01-09 19:26] LABS: ALBUMIN 3.4 g/dl (3.4-5.0); ALK PHOS 281 U/L (45-117); ANION GAP 7 MMOL/L (8-16); BILIRUBIN,TOTAL 5.9 mg/dL (0.2-1); BLOOD UREA NITROGEN 19 mg/dL (7-18); CHLORIDE 103 mmol/L (98-107); CO2 25 mmol/L (21-32); CREATININE 1.3 mg/dL (0.55-1.3); GLUCOSE,RANDOM 177 mg/dL (74-106); POTASSIUM 5.7 mmol/L (3.5-5.1); SGOT/AST 63 U/L (15-37); SGPT/ALT 74 U/L (13-61); SODIUM 135 mmol/L (136-145)
[2019-01-09 21:20] LABS: URINE APPEARANCE CLEAR; URINE BILIRUBIN SMALL (NEGATIVE); URINE COLOR DK YELLOW; URINE GLUCOSE (UA) NEGATIVE (NEGATIVE)
[2019-01-09 21:21] LABS: URINE KETONE NEGATIVE (NEGATIVE); URINE NITRITE NEGATIVE (NEGATIVE); URINE PROTEIN NEGATIVE (NEGATIVE); URINE UROBILINOGEN 0.2 mg/dL (0.2-1.0)
[2019-01-09 21:22] LABS: URINE LEUK ESTERASE N (NEGATIVE)
[2019-01-09] MEDS: HEPARIN NA (PORCINE) 5,000 UNITS/ML 1ML VIAL SQ SCH (21:25)
[2019-01-09] MEDS: INSULIN SLIDING SCALE (NOVOLOG) 1 VIAL SQ SCH (21:25)
[2019-01-09 21:37] LABS: ALK PHOS 252 U/L (45-117); ANION GAP 6 MMOL/L (8-16); BILIRUBIN,TOTAL 5.3 mg/dL (0.2-1); BLOOD UREA NITROGEN 20 mg/dL (7-18); CALCIUM 8.4 mg/dL (8.5-10.1); CHLORIDE 104 mmol/L (98-107); CO2 26 mmol/L (21-32); CREATININE 1.2 mg/dL (0.55-1.3); GLUCOSE,RANDOM 125 mg/dL (74-106); POTASSIUM 4.7 mmol/L (3.5-5.1); SGOT/AST 57 U/L (15-37); SGPT/ALT 70 U/L (13-61); SODIUM 136 mmol/L (136-145); TOT PROT 6.6 g/dl (6.4-8.2)
[2019-01-10] MEDS: INSULIN SLIDING SCALE (NOVOLOG) 1 VIAL SQ SCH ×4 (06:25→22:27)
[2019-01-10 07:18] LABS: HEMATOCRIT 34.7 % (35.4-49); HEMOGLOBIN 11.6 GM/dL (11.7-16.9); MCH 32.8 pg (25.7-33.7); MCHC 33.4 g/dl (32.0-35.9); MEAN CELL VOLUME 98.1 fl (80-96); MEAN PLT VOLUME 9.1 fl (7.5-11.1); PLATELET COUNT 191 K/MM3 (134-434); RBC 3.54 M/mm3 (4.00-5.60); RDW 16.5 % (11.9-15.9); WHITE BLOOD COUNT 8.9 K/mm3 (4.0-10.0)
[2019-01-10 07:28] LABS: ALBUMIN 3.3 g/dl (3.4-5.0); ALK PHOS 279 U/L (45-117); ANION GAP 8 MMOL/L (8-16); BILIRUBIN,TOTAL 6.5 mg/dL (0.2-1); BLOOD UREA NITROGEN 20 mg/dL (7-18); CALCIUM 8.7 mg/dL (8.5-10.1); CHLORIDE 106 mmol/L (98-107); CO2 24 mmol/L (21-32); CREATININE 1.1 mg/dL (0.55-1.3); GLUCOSE,RANDOM 105 mg/dL (74-106); MAGNESIUM 2.4 mg/dL (1.8-2.4); PHOSPHOROUS 3.3 mg/dL (2.5-4.9); POTASSIUM 5.4 mmol/L (3.5-5.1); SGOT/AST 60 U/L (15-37); SGPT/ALT 71 U/L (13-61); SODIUM 138 mmol/L (136-145); TOT PROT 6.8 g/dl (6.4-8.2)
[2019-01-10] MEDS: HEPARIN NA (PORCINE) 5,000 UNITS/ML 1ML VIAL SQ SCH ×2 (10:07→22:28)
--- NOTE | 2019-01-10 13:42 | PN ---
Progress Note, Physician - Current Medication List Current Medications: Active Medications Heparin Sodium (Porcine) (Heparin -) 5,000 unit SQ BID [facility] Last Admin: 01/10/19 10:07 Dose: 5,000 unit Insulin Aspart (Novolog Vial Sliding Scale -) 1 vial SQ ACHS [facility]; Protocol Last Admin: 01/10/19 11:53 Dose: Not Given Morphine Sulfate (Morphine Sulfate) 2 mg IVPUSH Q6H PRN PRN Reason: PAIN LEVEL 7 - 10 Ondansetron HCl (Zofran Injection) 4 mg IVPUSH Q6H PRN PRN Reason: NAUSEA AND/OR VOMITING - Objective Vital Signs: Vital Signs Temperature 98.4 F 01/10/19 11:01 Pulse Rate 74 01/10/19 11:01 Respiratory Rate 18 01/10/19 11:01 Blood Pressure 130/76 01/10/19 11:01 O2 Sat by Pulse Oximetry (%) 99 01/10/19 09:00 Cardiovascular: Yes: Regular Rate and Rhythm Respiratory: Yes: Regular, CTA Bilaterally Gastrointestinal: Yes: Normal Bowel Sounds, Soft Labs: CBC, BMP 01/10/19 05:30 01/10/19 05:30 INR, PTT INR 1.01 (0.83-1.09) 01/09/19 10:41 Assessment/Plan - Problems (1) Elevated bilirubin Assessment/Plan: ct scan enlerging liver mass heme on board 6.5 Code(s): R17 - UNSPECIFIED JAUNDICE (2) Hyperkalemia Assessment/Plan: kayxelate repeat labs- 5.4 Code(s): E87.5 - HYPERKALEMIA (3) Hyponatremia Assessment/Plan: ivf repeat labs renal Code(s): E87.1 - HYPO-OSMOLALITY AND HYPONATREMIA (4) Diabetes mellitus Assessment/Plan: bgm hgba1c sliding scale Code(s): E11.9 - TYPE 2 DIABETES MELLITUS WITHOUT COMPLICATIONS Qualifiers: Diabetes mellitus type: type 2 Diabetes mellitus jail insulin use: without intermediate accountant use Diabetes mellitus complication status: without complication Qualified Code(s): E11.9 - Type 2 diabetes mellitus without complications (5) Cancer Assessment/Plan: oncology on board ctscan noted dvt px Code(s): C80.1 - MALIGNANT (PRIMARY) NEOPLASM, UNSPECIFIED
--- NOTE | 2019-01-10 16:46 | CONSULT ---
Consult - text type - Consultation Consultation Note: Renal consult for Hyperkalemia and Hyponatremia This is a 53 year old gentleman with hx of Metastatic Gallbladder carcinoma, DM who presented with progressive jaundice and noted to have potassium of 5.9 and Na of 129. Pt was seen and examined at the bedside. Denies any acute complaints. Denies sob, cp, abd pain, N/V/D. Making urine but is very yellow. Stools are christine colored. Denies ingestion of high potassium foods. No NSAID use. s/p medical management of K overnight. No hx of renal dysfunction. Finished last cycle of chemo in mid-december. PMhx: as above Allergies: NKDA Family Hx: NC Social Hx; No T/A/D Home Medications Medication Instructions Recorded Unobtainable 01/09/19 Vital Signs Temperature 97.5 F L 01/10/19 14:00 Pulse Rate 97 H 01/10/19 14:00 Respiratory Rate 20 01/10/19 14:00 Blood Pressure 120/71 01/10/19 14:00 O2 Sat by Pulse Oximetry (%) 99 01/10/19 09:00 Intake & Output 01/07/19 01/08/19 01/09/19 01/10/19 23:59 23:59 23:59 23:59 Intake Total 1360 0 Balance 1360 0 Weight 80.059 kg NAD + scleral icterus + yellow skin awake and alert neck supple, no JVD RRR, no M/R CTA no rales or wheeze soft NT/ND, Abd scar present No LE edema, clubbing or cyanosis no bladder distension no focal deficits CBC, BMP 01/10/19 05:30 01/10/19 05:30 Current Medications Heparin Sodium (Porcine) (Heparin -) 5,000 unit SQ BID [facility] Last Admin: 01/10/19 10:07 Dose: 5,000 unit Insulin Aspart (Novolog Vial Sliding Scale -) 1 vial SQ ACHS [facility]; Protocol Last Admin: 01/10/19 11:53 Dose: Not Given Morphine Sulfate (Morphine Sulfate) 2 mg IVPUSH Q6H PRN PRN Reason: PAIN LEVEL 7 - 10 Ondansetron HCl (Zofran Injection) 4 mg IVPUSH Q6H PRN PRN Reason: NAUSEA AND/OR VOMITING 53 year old gentleman with hx of Metastatic Gallbladder carcinoma, DM who presented with progressive jaundice and noted to have potassium of 5.9 and Na of 129. #Hyperkalemia (etiology unclear) #Hyponatreia likely due to fluid retention in setting of liver mets #GB cancer with mets #Jaundice #DM Serum Na now improve to normal, would trend dialy. K is improved, check TTKG. Maintain on low K diet. Repeat K this evening GI/Oncology follow up Thank you Will follow Janusz Ulrich DO
--- NOTE | 2019-01-10 19:15 | PN ---
Progress Note, Physician History of Present Illness: No complaints. Feels well. Denies nauea, abd pain. - Current Medication List Current Medications: Active Medications Heparin Sodium (Porcine) (Heparin -) 5,000 unit SQ BID [facility] Last Admin: 01/10/19 10:07 Dose: 5,000 unit Insulin Aspart (Novolog Vial Sliding Scale -) 1 vial SQ ACHS [facility]; Protocol Last Admin: 01/10/19 17:13 Dose: Not Given Morphine Sulfate (Morphine Sulfate) 2 mg IVPUSH Q6H PRN PRN Reason: PAIN LEVEL 7 - 10 Ondansetron HCl (Zofran Injection) 4 mg IVPUSH Q6H PRN PRN Reason: NAUSEA AND/OR VOMITING Last Admin: 01/10/19 17:23 Dose: 4 mg - Objective Vital Signs: Vital Signs Temperature 98.8 F 01/10/19 18:00 Pulse Rate 73 01/10/19 18:00 Respiratory Rate 18 01/10/19 18:00 Blood Pressure 140/77 01/10/19 18:00 O2 Sat by Pulse Oximetry (%) 99 01/10/19 09:00 Constitutional: Yes: Well Nourished, No Distress Eyes: Yes: Sclera Icterus Cardiovascular: Yes: Regular Rate and Rhythm Respiratory: Yes: Regular, CTA Bilaterally Gastrointestinal: Yes: Normal Bowel Sounds, Soft (surgical scar well healed) Extremities: Yes: WNL Edema: No Labs: CBC, BMP 01/10/19 05:30 01/10/19 05:30 INR, PTT INR 1.01 (0.83-1.09) 01/09/19 10:41 Assessment/Plan 53M with GB CA metastatic to LNs and liver dx in 2015 s/p extensive resection and Xeloda, with recurrence in the liver in 07/2017, s/p cisplatin/gemzar, with subsequent POD, switched to FOLFOX, now admitted with new onset of jaundice. CT with interval enlargement of several left hepatic masses. Per discussion for Dr. Kc and radiology, there was no clear biliary dilatation, for which intervention could be considered. TB 6.5 today. Will need change of further chemotherapy though hyperbilirubinemia is likely to limit options.
[2019-01-11] MEDS: INSULIN SLIDING SCALE (NOVOLOG) 1 VIAL SQ SCH ×4 (06:09→22:31)
[2019-01-11 06:40] LABS: BASO % 0.7 % (0-2.0); EOS % 2.9 % (0-4.5); HEMATOCRIT 34.5 % (35.4-49); HEMOGLOBIN 11.6 GM/dL (11.7-16.9); LYMPH % 16.5 % (8-40); MCH 33.1 pg (25.7-33.7); MCHC 33.7 g/dl (32.0-35.9); MEAN CELL VOLUME 98.3 fl (80-96); MEAN PLT VOLUME 8.8 fl (7.5-11.1); MONO % 13.1 % (3.8-10.2); NEUT % 66.8 % (42.8-82.8); PLATELET COUNT 196 K/MM3 (134-434); RBC 3.51 M/mm3 (4.00-5.60); RDW 16.2 % (11.9-15.9); WHITE BLOOD COUNT 9.2 K/mm3 (4.0-10.0)
[2019-01-11 07:05] LABS: ALBUMIN 3.1 g/dl (3.4-5.0); ALK PHOS 299 U/L (45-117); ANION GAP 8 MMOL/L (8-16); BLOOD UREA NITROGEN 19 mg/dL (7-18); CALCIUM 8.4 mg/dL (8.5-10.1); CHLORIDE 104 mmol/L (98-107); CO2 25 mmol/L (21-32); CREATININE 1.2 mg/dL (0.55-1.3); GLUCOSE,RANDOM 116 mg/dL (74-106); POTASSIUM 4.6 mmol/L (3.5-5.1); SGOT/AST 53 U/L (15-37); SGPT/ALT 65 U/L (13-61); SODIUM 138 mmol/L (136-145); TOT PROT 6.9 g/dl (6.4-8.2)
[2019-01-11] MEDS: HEPARIN NA (PORCINE) 5,000 UNITS/ML 1ML VIAL SQ SCH ×2 (10:58→22:27)
--- NOTE | 2019-01-11 11:02 | PN ---
Progress Note (short form) - Note Progress Note: Renal follow up for Hyperkalemia Pt seen and examined at the bedside no acute complaints has poor appetite no sob, cp, abd pain Vital Signs Temperature 98.5 F 01/11/19 05:00 Pulse Rate 66 01/11/19 09:00 Respiratory Rate 18 01/11/19 09:00 Blood Pressure 127/82 01/11/19 09:00 O2 Sat by Pulse Oximetry (%) 99 01/10/19 21:00 Intake & Output 01/08/19 01/09/19 01/10/19 01/11/19 23:59 23:59 23:59 23:59 Intake Total 1360 560 0 Balance 1360 560 0 Weight 80.059 kg NAD + scleral icterus + yellow skin RRR, no M/R CTA no rales or wheeze soft NT/ND, Abd scar present No LE edema, clubbing or cyanosis CBC, BMP 01/11/19 05:30 01/11/19 05:30 Current Medications Heparin Sodium (Porcine) (Heparin -) 5,000 unit SQ BID [facility] Last Admin: 01/11/19 10:58 Dose: 5,000 unit Insulin Aspart (Novolog Vial Sliding Scale -) 1 vial SQ ACHS [facility]; Protocol Last Admin: 01/11/19 06:09 Dose: Not Given Morphine Sulfate (Morphine Sulfate) 2 mg IVPUSH Q6H PRN PRN Reason: PAIN LEVEL 7 - 10 Ondansetron HCl (Zofran Injection) 4 mg IVPUSH Q6H PRN PRN Reason: NAUSEA AND/OR VOMITING Last Admin: 01/10/19 17:23 Dose: 4 mg 53 year old gentleman with hx of Metastatic Gallbladder carcinoma, DM who presented with progressive jaundice and noted to have potassium of 5.9 and Na of 129. #Hyperkalemia (etiology unclear) #Hyponatreia likely due to fluid retention in setting of liver mets #GB cancer with mets #Jaundice #DM K is improved today TTKG consistent with decreased potassium excretion possibly from low flow state from liver dysfunction trend k daily oral intake as tolerated, maintain low K diet Thank you Will follow Janusz Ulrich DO
--- NOTE | 2019-01-11 11:49 | PN ---
Progress Note, Physician - Current Medication List Current Medications: Active Medications Heparin Sodium (Porcine) (Heparin -) 5,000 unit SQ BID [facility] Last Admin: 01/11/19 10:58 Dose: 5,000 unit Insulin Aspart (Novolog Vial Sliding Scale -) 1 vial SQ ACHS [facility]; Protocol Last Admin: 01/11/19 06:09 Dose: Not Given Morphine Sulfate (Morphine Sulfate) 2 mg IVPUSH Q6H PRN PRN Reason: PAIN LEVEL 7 - 10 Ondansetron HCl (Zofran Injection) 4 mg IVPUSH Q6H PRN PRN Reason: NAUSEA AND/OR VOMITING Last Admin: 01/10/19 17:23 Dose: 4 mg - Objective Vital Signs: Vital Signs Temperature 98.5 F 01/11/19 05:00 Pulse Rate 66 01/11/19 09:00 Respiratory Rate 18 01/11/19 09:00 Blood Pressure 127/82 01/11/19 09:00 O2 Sat by Pulse Oximetry (%) 99 01/10/19 21:00 Cardiovascular: Yes: Regular Rate and Rhythm Respiratory: Yes: Regular, CTA Bilaterally Gastrointestinal: Yes: Normal Bowel Sounds, Soft Labs: CBC, BMP 01/11/19 05:30 01/11/19 05:30 INR, PTT INR 1.01 (0.83-1.09) 01/09/19 10:41 Assessment/Plan - Problems (1) Elevated bilirubin Assessment/Plan: ct scan enlerging liver mass heme on board 6.5 Code(s): R17 - UNSPECIFIED JAUNDICE (2) Hyperkalemia Assessment/Plan: kayxelate repeat labs- normal Code(s): E87.5 - HYPERKALEMIA (3) Hyponatremia Assessment/Plan: improved repeat labs renal Code(s): E87.1 - HYPO-OSMOLALITY AND HYPONATREMIA (4) Diabetes mellitus Assessment/Plan: bgm hgba1c sliding scale Code(s): E11.9 - TYPE 2 DIABETES MELLITUS WITHOUT COMPLICATIONS Qualifiers: Diabetes mellitus type: type 2 Diabetes mellitus lactation nurse insulin use: without lactation nurse use Diabetes mellitus complication status: without complication Qualified Code(s): E11.9 - Type 2 diabetes mellitus without complications (5) Cancer Assessment/Plan: oncology on board ctscan noted dvt px Code(s): C80.1 - MALIGNANT (PRIMARY) NEOPLASM, UNSPECIFIED
[2019-01-11 12:16] VITALS: BMI 28.4
--- NOTE | 2019-01-11 19:33 | PN ---
Progress Note, Physician History of Present Illness: Feels ok overall, no abdominal pain or vomiting. Continues to have poor appetite. - Current Medication List Current Medications: Active Medications Heparin Sodium (Porcine) (Heparin -) 5,000 unit SQ BID [facility] Last Admin: 01/11/19 10:58 Dose: 5,000 unit Insulin Aspart (Novolog Vial Sliding Scale -) 1 vial SQ ACHS [facility]; Protocol Last Admin: 01/11/19 18:29 Dose: Not Given Morphine Sulfate (Morphine Sulfate) 2 mg IVPUSH Q6H PRN PRN Reason: PAIN LEVEL 7 - 10 Ondansetron HCl (Zofran Injection) 4 mg IVPUSH Q6H PRN PRN Reason: NAUSEA AND/OR VOMITING Last Admin: 01/10/19 17:23 Dose: 4 mg - Objective Vital Signs: Vital Signs Temperature 99.4 F 01/11/19 14:00 Pulse Rate 69 01/11/19 14:00 Respiratory Rate 20 01/11/19 14:00 Blood Pressure 132/75 01/11/19 14:00 O2 Sat by Pulse Oximetry (%) 99 01/10/19 21:00 Constitutional: Yes: Well Nourished, No Distress Eyes: Yes: Sclera Icterus Cardiovascular: Yes: Regular Rate and Rhythm Respiratory: Yes: WNL, Regular, CTA Bilaterally Gastrointestinal: Yes: Normal Bowel Sounds, Soft Edema: No Labs: CBC, BMP 01/11/19 05:30 01/11/19 05:30 INR, PTT INR 1.01 (0.83-1.09) 01/09/19 10:41 Assessment/Plan 53M with GB CA metastatic to LNs and liver dx in 2015 s/p extensive resection and Xeloda, with recurrence in the liver in 07/2017, s/p cisplatin/gemzar, with subsequent POD, switched to FOLFOX, now admitted with new onset of jaundice. CT with interval enlargement of several left hepatic masses. Per discussion for Dr. Kc and radiology, there was no clear biliary dilatation, for which intervention could be considered. TB 6.5 today. Will need change of further chemotherapy though hyperbilirubinemia is likely to limit options.
[2019-01-12 06:38] LABS: BASO % 0.6 % (0-2.0); EOS % 1.9 % (0-4.5); HEMOGLOBIN 12.5 GM/dL (11.7-16.9); LYMPH % 17.4 % (8-40); MCH 33.1 pg (25.7-33.7); MCHC 33.8 g/dl (32.0-35.9); MEAN CELL VOLUME 98.1 fl (80-96); MEAN PLT VOLUME 9.1 fl (7.5-11.1); MONO % 11.6 % (3.8-10.2); NEUT % 68.5 % (42.8-82.8); PLATELET COUNT 241 K/MM3 (134-434); RBC 3.77 M/mm3 (4.00-5.60); RDW 16.1 % (11.9-15.9); WHITE BLOOD COUNT 12.3 K/mm3 (4.0-10.0)
[2019-01-12] MEDS: INSULIN SLIDING SCALE (NOVOLOG) 1 VIAL SQ SCH ×4 (06:38→21:15)
[2019-01-12 07:20] LABS: ANION GAP 5 MMOL/L (8-16); BLOOD UREA NITROGEN 20 mg/dL (7-18); CHLORIDE 103 mmol/L (98-107); CO2 26 mmol/L (21-32); CREATININE 1.2 mg/dL (0.55-1.3); GLUCOSE,RANDOM 121 mg/dL (74-106); MAGNESIUM 2.2 mg/dL (1.8-2.4); PHOSPHOROUS 3.4 mg/dL (2.5-4.9); SODIUM 134 mmol/L (136-145)
[2019-01-12] MEDS: HEPARIN NA (PORCINE) 5,000 UNITS/ML 1ML VIAL SQ SCH ×2 (10:48→21:15)
--- NOTE | 2019-01-12 12:14 | PN ---
Progress Note (short form) - Note Progress Note: Renal follow up for Hyperkalemia Pt seen and examined at the bedside no acute complaints appetite remains poor no sob, cp, abd pain, N/V/D, fever, chills Vital Signs Temperature 98.8 F 01/12/19 09:38 Pulse Rate 85 01/12/19 09:38 Respiratory Rate 20 01/12/19 09:38 Blood Pressure 143/71 01/12/19 09:38 O2 Sat by Pulse Oximetry (%) 99 01/10/19 21:00 Intake & Output 01/09/19 01/10/19 01/11/19 01/12/19 23:59 23:59 23:59 23:59 Intake Total 1360 560 10 0 Balance 1360 560 10 0 Weight 80.059 kg 79.832 kg NAD + scleral icterus + yellow skin RRR, no M/R CTA no rales or wheeze soft NT/ND, Abd scar present No LE edema, clubbing or cyanosis CBC, BMP 01/12/19 05:30 01/12/19 05:30 Current Medications Heparin Sodium (Porcine) (Heparin -) 5,000 unit SQ BID [facility] Last Admin: 01/12/19 10:48 Dose: 5,000 unit Insulin Aspart (Novolog Vial Sliding Scale -) 1 vial SQ ACHS [facility]; Protocol Last Admin: 01/12/19 06:38 Dose: Not Given Morphine Sulfate (Morphine Sulfate) 2 mg IVPUSH Q6H PRN PRN Reason: PAIN LEVEL 7 - 10 Ondansetron HCl (Zofran Injection) 4 mg IVPUSH Q6H PRN PRN Reason: NAUSEA AND/OR VOMITING Last Admin: 01/10/19 17:23 Dose: 4 mg 53 year old gentleman with hx of Metastatic Gallbladder carcinoma, DM who presented with progressive jaundice and noted to have potassium of 5.9 and Na of 129. #Hyperkalemia (etiology unclear) #Hyponatreia likely due to fluid retention in setting of liver mets #GB cancer with mets #Jaundice #DM serum potassium improve and stable TTKG consistent with decreased potassium excretion possibly from low flow state from liver dysfunction trend k daily, continue low potassium diet Oncology follow up Janusz Ulrich DO
--- NOTE | 2019-01-12 15:37 | PN ---
Physical Exam: SUBJECTIVE: Patient seen and examined at bedside. Has some pruritus which is better than before. Otherwise offers no complaints at this time. Is ambulating. OBJECTIVE: Vital Signs Period Temp Pulse Resp BP Sys/Jarquin Pulse Ox Last 24 Hr 98.6 F-99.0 F 75-85 20-20 126-143/71-79 GENERAL: The patient is awake, alert, and fully oriented, in no acute distress. HEAD: Normal with no signs of trauma. EYES: Icteric sclera. NECK: Trachea midline, full range of motion LUNGS: Breath sounds equal, clear to auscultation bilaterally HEART: Regular rate and rhythm, S1, S2. ABDOMEN: Soft, nontender EXTREMITIES: no edema. NEUROLOGICAL: Normal speech, gait not observed. PSYCH: Normal mood, normal affect. SKIN: Warm, dry Laboratory Results - last 24 hr 01/11/19 01/11/19 01/12/19 17:03 22:29 05:13 WBC RBC Hgb Hct MCV MCH MCHC RDW Plt Count MPV Absolute Neuts (auto) Neutrophils % Lymphocytes % Monocytes % Eosinophils % Basophils % Nucleated RBC % Sodium Potassium Chloride Carbon Dioxide Anion Gap BUN Creatinine Creat Clearance w eGFR POC Glucometer 151 116 128 Random Glucose Calcium Phosphorus Magnesium 01/12/19 01/12/19 01/12/19 05:30 05:30 12:44 WBC 12.3 H RBC 3.77 L Hgb 12.5 Hct 37.0 MCV 98.1 H MCH 33.1 MCHC 33.8 RDW 16.1 H Plt Count 241 D MPV 9.1 Absolute Neuts (auto) 8.4 H Neutrophils % 68.5 Lymphocytes % 17.4 Monocytes % 11.6 H Eosinophils % 1.9 Basophils % 0.6 Nucleated RBC % 0 Sodium 134 L Potassium 5.0 Chloride 103 Carbon Dioxide 26 Anion Gap 5 L BUN 20 H Creatinine 1.2 Creat Clearance w eGFR 62.86 POC Glucometer 268 Random Glucose 121 H Calcium 9.0 Phosphorus 3.4 Magnesium 2.2 Active Medications Generic Name Dose Route Start Last Admin Trade Name Freq PRN Reason Stop Dose Admin Heparin Sodium (Porcine) 5,000 unit 01/09/19 22:00 01/12/19 10:48 Heparin - SQ 5,000 unit BID [facility] Administration Insulin Aspart 1 vial 01/09/19 22:00 01/12/19 12:00 Novolog Vial Sliding Scale - SQ 4 units ACHS [facility] Administration Protocol Morphine Sulfate 2 mg 01/09/19 16:41 Morphine Sulfate IVPUSH Q6H PRN PAIN LEVEL 7 - 10 Ondansetron HCl 4 mg 01/09/19 16:36 01/10/19 17:23 Zofran Injection IVPUSH 4 mg Q6H PRN Administration NAUSEA AND/OR VOMITING ASSESSMENT/PLAN: 53 y/o M w/PMH of 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 -Jaundice / scleral icterus -CT with interval enlargement of several hepatic masses. No clear biliary dilatation seen by radiology as per previous notes. -Tbili now at 6.0 from 6.5. -continue to monitor Tbili -Will need to consider change in chemotherapy although hyperbilirubinemia may limit options -Hyperkalemia -continue to monitor, currently WNL Visit type - Emergency Visit Emergency Visit: Yes ED Registration Date: 01/09/19 Care time: The patient presented to the Emergency Department on the above date and was hospitalized for further evaluation of their emergent condition. - New Patient This patient is new to me today: Yes Date on this admission: 01/12/19 - Critical Care Critical Care patient: No
--- NOTE | 2019-01-12 16:46 | PN ---
Progress Note, Physician Chief Complaint: Gallbladder CA with Metastasis to Liver Elevated Bilirubin History of Present Illness: Previous notes and events reviewed awake and alert NAD denies abdominal pain, chest pain, SOB - Current Medication List Current Medications: Active Medications Heparin Sodium (Porcine) (Heparin -) 5,000 unit SQ BID [facility] Last Admin: 01/12/19 10:48 Dose: 5,000 unit Insulin Aspart (Novolog Vial Sliding Scale -) 1 vial SQ ACHS [facility]; Protocol Last Admin: 01/12/19 12:00 Dose: 4 units Morphine Sulfate (Morphine Sulfate) 2 mg IVPUSH Q6H PRN PRN Reason: PAIN LEVEL 7 - 10 Ondansetron HCl (Zofran Injection) 4 mg IVPUSH Q6H PRN PRN Reason: NAUSEA AND/OR VOMITING Last Admin: 01/10/19 17:23 Dose: 4 mg - Objective Vital Signs: Vital Signs Temperature 98.4 F 01/12/19 14:05 Pulse Rate 74 01/12/19 14:05 Respiratory Rate 20 01/12/19 14:05 Blood Pressure 125/70 01/12/19 14:05 O2 Sat by Pulse Oximetry (%) 99 01/10/19 21:00 Constitutional: Yes: No Distress, Calm Eyes: Yes: Other (conjunctiva jaundice) HENT: Yes: Atraumatic Cardiovascular: Yes: Regular Rate and Rhythm Respiratory: Yes: Regular, CTA Bilaterally Gastrointestinal: Yes: Normal Bowel Sounds, Soft Musculoskeletal: Yes: WNL Extremities: Yes: WNL Edema: No Neurological: Yes: Alert, Oriented Psychiatric: Yes: Alert, Oriented Labs: CBC, BMP 01/12/19 05:30 01/12/19 05:30 INR, PTT INR 1.01 (0.83-1.09) 01/09/19 10:41 CMP Sodium 134 mmol/L (136-145) L 01/12/19 05:30 Potassium 5.0 mmol/L (3.5-5.1) 01/12/19 05:30 Chloride 103 mmol/L (98-107) 01/12/19 05:30 Carbon Dioxide 26 mmol/L (21-32) 01/12/19 05:30 Anion Gap 5 MMOL/L (8-16) L 01/12/19 05:30 BUN 20 mg/dL (7-18) H 01/12/19 05:30 Creatinine 1.2 mg/dL (0.55-1.3) 01/12/19 05:30 Creat Clearance w eGFR 62.86 (>60) 01/12/19 05:30 POC Glucometer 268 UNITS (80-120) 01/12/19 12:44 Random Glucose 121 mg/dL (74-106) H 01/12/19 05:30 Hemoglobin A1c % 6.0 % (4.2-6.3) 01/10/19 05:30 Serum Osmolality 291 mosm/kg (278-305) 01/10/19 19:16 Calcium 9.0 mg/dL (8.5-10.1) 01/12/19 05:30 Phosphorus 3.4 mg/dL (2.5-4.9) 01/12/19 05:30 Magnesium 2.2 mg/dL (1.8-2.4) 01/12/19 05:30 Total Bilirubin 6.0 mg/dL (0.2-1) H 01/11/19 05:30 Direct Bilirubin 5.1 mg/dL (0.0-0.2) H 01/09/19 10:41 AST 53 U/L (15-37) H 01/11/19 05:30 ALT 65 U/L (13-61) H 01/11/19 05:30 Alkaline Phosphatase 299 U/L (45-117) H 01/11/19 05:30 Total Protein 6.9 g/dl (6.4-8.2) 01/11/19 05:30 Albumin 3.1 g/dl (3.4-5.0) L 01/11/19 05:30 Lipase 193 U/L (73-393) 01/09/19 10:41 TSH 0.43 uIU/ml (0.358-3.74) D 01/10/19 05:30 Problem List - Problems (1) Cancer Assessment/Plan: -heme on board -MRCP shows L hepatic lobe resection with a large L hepatic lobe likely partly necrotic mass in the L hepatic lobe extending into the R hepatic lobe with perilesional enhancement extending to the hilar region with mass effect on the common hepatic duct resulting in mild intrahepatic biliary ductal dilation, scatter small R hepatic lobe lesions the largest measuring 1.3cm demonstrating ring enhancement and restricted diffusion most likely metastatic in nature Code(s): C80.1 - MALIGNANT (PRIMARY) NEOPLASM, UNSPECIFIED (2) Elevated bilirubin Assessment/Plan: -heme on board -total bili 6.0 -monitor for downtrend of bilirubin Code(s): R17 - UNSPECIFIED JAUNDICE (3) Hyperkalemia Assessment/Plan: -K.50 -resolved -monitor lytes and replete as needed Code(s): E87.5 - HYPERKALEMIA (4) Hyponatremia Assessment/Plan: -Na 134 -renal on board -monitor lytes daily Code(s): E87.1 - HYPO-OSMOLALITY AND HYPONATREMIA (5) Diabetes mellitus Assessment/Plan: -BGM ACHS -ISS Code(s): E11.9 - TYPE 2 DIABETES MELLITUS WITHOUT COMPLICATIONS Qualifiers: Diabetes mellitus type: type 2 Diabetes mellitus ferry terminal agent insulin use: without chcf use Diabetes mellitus complication status: without complication Qualified Code(s): E11.9 - Type 2 diabetes mellitus without complications Assessment/Plan see problem list dvt ppx
--- NOTE | 2019-01-12 23:14 | PN ---
Teaching Attending Note Name of Resident: Sin Randhawa ATTENDING PHYSICIAN STATEMENT I saw and evaluated the patient. I reviewed the resident's note and discussed the case with the resident. I agree with the resident's findings and plan as documented. ASSESSMENT AND PLAN: 53M with GB CA metastatic to LNs and liver dx in 2015 s/p extensive resection and Xeloda, with recurrence in the liver in 07/2017, s/p cisplatin/gemzar, with subsequent POD, switched to FOLFOX, now admitted with new onset of jaundice. CT with interval enlargement of left hepaic ass and several rt. hepatic masses Ongoing discussion wiht liver team at [facility] ? palliative stenting TBIli 6.5 ? check PDL1/next gen
[2019-01-13] MEDS: INSULIN SLIDING SCALE (NOVOLOG) 1 VIAL SQ SCH ×4 (06:05→21:17)
[2019-01-13 07:35] LABS: HEMATOCRIT 37.2 % (35.4-49); HEMOGLOBIN 12.9 GM/dL (11.7-16.9); MCH 33.8 pg (25.7-33.7); MCHC 34.7 g/dl (32.0-35.9); MEAN CELL VOLUME 97.3 fl (80-96); PLATELET COUNT 264 K/MM3 (134-434); RBC 3.82 M/mm3 (4.00-5.60); RDW 15.5 % (11.9-15.9); WHITE BLOOD COUNT 10.6 K/mm3 (4.0-10.0)
[2019-01-13 08:17] LABS: ANION GAP 7 MMOL/L (8-16); BLOOD UREA NITROGEN 23 mg/dL (7-18); CALCIUM 9.1 mg/dL (8.5-10.1); CHLORIDE 102 mmol/L (98-107); CO2 22 mmol/L (21-32); CREATININE 1.2 mg/dL (0.55-1.3); GLUCOSE,RANDOM 146 mg/dL (74-106); MAGNESIUM 2.1 mg/dL (1.8-2.4); POTASSIUM 4.8 mmol/L (3.5-5.1); SODIUM 131 mmol/L (136-145)
[2019-01-13] MEDS: HEPARIN NA (PORCINE) 5,000 UNITS/ML 1ML VIAL SQ SCH ×2 (09:23→21:12)
[2019-01-13] MEDS ORDERED: FLU VACCINE QUAD 60 MCG/0.5 ML (MDV 18-19) IM ONE (10:48)
[2019-01-13] MEDS ORDERED: PNEUMOC 13-VAL CONJ-DIP CRM/PF 0.5 ML DISP.SYRIN IM ONE ×2 (10:48→14:30)
--- NOTE | 2019-01-13 12:14 | PN ---
Progress Note, Physician Chief Complaint: liver mets History of Present Illness: MRCP shows L hepatic lobe resection with a large L hepatic lobe likely partly necrotic mass in the L hepatic lobe extending into the R hepatic lobe with perilesional enhancement extending to the hilar region with mass effect on the common hepatic duct resulting in mild intrahepatic biliary ductal dilation, scatter small R hepatic lobe lesions the largest measuring 1.3cm demonstrating ring enhancement and restricted diffusion most likely metastatic in nature Seen by Oncology Family at bedside sitting at the edge of the bed - Current Medication List Current Medications: Active Medications Heparin Sodium (Porcine) (Heparin -) 5,000 unit SQ BID [facility] Last Admin: 01/13/19 09:23 Dose: 5,000 unit Insulin Aspart (Novolog Vial Sliding Scale -) 1 vial SQ ACHS [facility]; Protocol Last Admin: 01/13/19 12:00 Dose: 2 units Ondansetron HCl (Zofran Injection) 4 mg IVPUSH Q6H PRN PRN Reason: NAUSEA AND/OR VOMITING Last Admin: 01/10/19 17:23 Dose: 4 mg - Objective Vital Signs: Vital Signs Temperature 98 F 01/13/19 10:00 Pulse Rate 78 01/13/19 10:00 Respiratory Rate 20 01/13/19 10:00 Blood Pressure 124/74 01/13/19 10:00 O2 Sat by Pulse Oximetry (%) 99 01/13/19 09:00 Constitutional: Yes: Well Nourished, No Distress, Calm Cardiovascular: Yes: Regular Rate and Rhythm Respiratory: Yes: Regular Gastrointestinal: Yes: Normal Bowel Sounds, Soft Musculoskeletal: Yes: WNL Extremities: Yes: WNL Edema: No Peripheral Pulses WNL: Yes Neurological: Yes: Alert, Oriented Psychiatric: Yes: Alert, Oriented Labs: CBC, BMP 01/13/19 06:26 01/13/19 06:26 INR, PTT INR 1.01 (0.83-1.09) 01/09/19 10:41 Problem List - Problems (1) Elevated bilirubin Assessment/Plan: -monitor trend -Seen by oncology -PET scan outpatient -no dilatation of biliary tract Code(s): R17 - UNSPECIFIED JAUNDICE (2) Hyperkalemia Assessment/Plan: -resolved Code(s): E87.5 - HYPERKALEMIA (3) Hyponatremia Assessment/Plan: -nephrology on board -monitor trend Code(s): E87.1 - HYPO-OSMOLALITY AND HYPONATREMIA (4) Metastasis from gallbladder cancer Assessment/Plan: -CT with interval enlargement of several hepatic masses. No clear biliary dilatation seen by radiology as per previous notes. -last Tbili at 7.0 -monitor trend -F/U Dr Sharon Muhammad MD outpatient Code(s): C79.9 - SECONDARY MALIGNANT NEOPLASM OF UNSPECIFIED SITE; C23 - MALIGNANT NEOPLASM OF GALLBLADDER Assessment/Plan see problem list self ambulatory
--- NOTE | 2019-01-13 13:38 | PN ---
Physical Exam: SUBJECTIVE: Patient seen and examined at bedside. Offers no new complaints. Feels well. Decreased itching. OBJECTIVE: Vital Signs Period Temp Pulse Resp BP Sys/Jarquin Pulse Ox Last 24 Hr 97.9 F-98.9 F 69-96 18-20 121-140/70-93 99 GENERAL: The patient is awake, alert, and fully oriented, in no acute distress. HEAD: Normal with no signs of trauma. EYES: Scleral icterus NECK: Trachea midline, full range of motion LUNGS: Breath sounds equal, clear to auscultation bilaterally HEART: Regular rate and rhythm, S1, S2. ABDOMEN: Soft, nontender EXTREMITIES: no edema. NEUROLOGICAL: Normal speech, gait not observed. PSYCH: Normal mood, normal affect. SKIN: Warm, dry Laboratory Results - last 24 hr 01/10/19 01/12/19 01/12/19 19:16 17:19 21:09 WBC RBC Hgb Hct MCV MCH MCHC RDW Plt Count MPV Sodium Potassium Plasma Potassium 4.9 Chloride Carbon Dioxide Anion Gap BUN Creatinine Creat Clearance w eGFR POC Glucometer 116 141 Random Glucose Calcium Magnesium 01/13/19 01/13/19 01/13/19 05:22 06:26 06:26 WBC 10.6 H RBC 3.82 L Hgb 12.9 Hct 37.2 MCV 97.3 H MCH 33.8 H MCHC 34.7 RDW 15.5 Plt Count 264 MPV 9.0 Sodium 131 L Potassium 4.8 Plasma Potassium Chloride 102 Carbon Dioxide 22 Anion Gap 7 L BUN 23 H Creatinine 1.2 Creat Clearance w eGFR 62.86 POC Glucometer 125 Random Glucose 146 H Calcium 9.1 Magnesium 2.1 01/13/19 11:55 WBC RBC Hgb Hct MCV MCH MCHC RDW Plt Count MPV Sodium Potassium Plasma Potassium Chloride Carbon Dioxide Anion Gap BUN Creatinine Creat Clearance w eGFR POC Glucometer 226 Random Glucose Calcium Magnesium Active Medications Generic Name Dose Route Start Last Admin Trade Name Freq PRN Reason Stop Dose Admin Heparin Sodium (Porcine) 5,000 unit 01/09/19 22:00 01/13/19 09:23 Heparin - SQ 5,000 unit BID JHOAN Administration Insulin Aspart 1 vial 01/09/19 22:00 01/13/19 12:00 Novolog Vial Sliding Scale - SQ 2 units ACHS JHOAN Administration Protocol Ondansetron HCl 4 mg 01/09/19 16:36 01/10/19 17:23 Zofran Injection IVPUSH 4 mg Q6H PRN Administration NAUSEA AND/OR VOMITING ASSESSMENT/PLAN: 53 y/o M w/PMH of 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 -Jaundice / scleral icterus -CT with interval enlargement of several hepatic masses. No clear biliary dilatation seen by radiology as per previous notes. -Last Tbili elevated at 6.0 -continue to monitor Tbili -Will need to consider change in chemotherapy although hyperbilirubinemia may limit options -May benefit from tertiary care center -Hyperkalemia -continue to monitor, currently WNL Visit type - Emergency Visit Emergency Visit: Yes ED Registration Date: 01/09/19 Care time: The patient presented to the Emergency Department on the above date and was hospitalized for further evaluation of their emergent condition. - New Patient This patient is new to me today: No - Critical Care Critical Care patient: No
--- NOTE | 2019-01-13 19:28 | PN ---
Teaching Attending Note Name of Resident: Sin Randhawa ATTENDING PHYSICIAN STATEMENT I saw and evaluated the patient. I reviewed the resident's note and discussed the case with the resident. I agree with the resident's findings and plan as documented. SUBJECTIVE: Patient seen and examined Discussed issues with IR at [facility] and Liver Surgeon at [facility]-- Dr. Herrera. Will plan for discharge- out patient PET and appointment with Liver team at [facility]. OBJECTIVE: ASSESSMENT AND PLAN:
[2019-01-14] MEDS: INSULIN SLIDING SCALE (NOVOLOG) 1 VIAL SQ SCH ×2 (06:02→12:01)
[2019-01-14 06:34] LABS: BASO % 0.6 % (0-2.0); EOS % 2.1 % (0-4.5); HEMATOCRIT 35.8 % (35.4-49); HEMOGLOBIN 12.2 GM/dL (11.7-16.9); LYMPH % 13.8 % (8-40); MCH 33.2 pg (25.7-33.7); MCHC 34.1 g/dl (32.0-35.9); MEAN CELL VOLUME 97.5 fl (80-96); MEAN PLT VOLUME 9.3 fl (7.5-11.1); MONO % 10.4 % (3.8-10.2); NEUT % 73.1 % (42.8-82.8); PLATELET COUNT 225 K/MM3 (134-434); RBC 3.67 M/mm3 (4.00-5.60); WHITE BLOOD COUNT 11.3 K/mm3 (4.0-10.0)
[2019-01-14 07:00] LABS: ALBUMIN 2.9 g/dl (3.4-5.0); ALK PHOS 312 U/L (45-117); ANION GAP 6 MMOL/L (8-16); BILIRUBIN,TOTAL 7.6 mg/dL (0.2-1); BLOOD UREA NITROGEN 23 mg/dL (7-18); CALCIUM 8.7 mg/dL (8.5-10.1); CHLORIDE 101 mmol/L (98-107); CO2 25 mmol/L (21-32); CREATININE 1.2 mg/dL (0.55-1.3); GLUCOSE,RANDOM 124 mg/dL (74-106); POTASSIUM 4.6 mmol/L (3.5-5.1); SGOT/AST 52 U/L (15-37); SGPT/ALT 55 U/L (13-61); SODIUM 132 mmol/L (136-145)
[2019-01-14 09:43] VITALS: BP 122/78; PULSE 85; TEMP 99.1
[2019-01-14] MEDS: HEPARIN NA (PORCINE) 5,000 UNITS/ML 1ML VIAL SQ SCH (09:58)
--- NOTE | 2019-01-14 11:02 | DS ---
Physical Examination Vital Signs: Vital Signs Temperature 99.1 F 01/14/19 09:42 Pulse Rate 85 01/14/19 09:42 Respiratory Rate 18 01/14/19 09:42 Blood Pressure 122/78 01/14/19 09:42 O2 Sat by Pulse Oximetry (%) 98 01/13/19 20:01 Findings/Remarks: 53 y/o male presents to the ED for evaluation of weakness, poor appetite, jaundice, and yellowish in eyes. Pt with hx of gallbladder ca with liver mets dx 'd in 2016 and is under the care of Dr. Kc. Pt states last chemo 3 weeks ago. Pt denies fever, chills, diarrhea, constipation, abd pain, cough, or urinary complaints. Seen and evaluated by Oncology Dr De Larson, who spoke to Dr Herrera at [facility]. Pt will be discharged follow up with Dr Kc, go for PET scan outpatient before seeing Dr Herrera. Constitutional: Yes: Well Nourished, No Distress, Calm Cardiovascular: Yes: Regular Rate and Rhythm Respiratory: Yes: Regular Gastrointestinal: Yes: Normal Bowel Sounds, Soft Musculoskeletal: Yes: WNL Extremities: Yes: WNL Neurological: Yes: Alert, Oriented Psychiatric: Yes: Alert, Oriented Labs: CBC, BMP 01/14/19 05:30 01/14/19 05:30 Discharge Summary Reason For Visit: HIGH BILIRUBIN Current Active Problems Cancer (Acute) Elevated bilirubin (Acute) Hyperkalemia (Acute) Hyponatremia (Acute) Metastasis from gallbladder cancer (Acute) Weakness (Acute) Hospital Course: Laboratory Last Values WBC 11.3 K/mm3 (4.0-10.0) H 01/14/19 05:30 RBC 3.67 M/mm3 (4.00-5.60) L 01/14/19 05:30 Hgb 12.2 GM/dL (11.7-16.9) 01/14/19 05:30 Hct 35.8 % (35.4-49) 01/14/19 05:30 MCV 97.5 fl (80-96) H 01/14/19 05:30 MCH 33.2 pg (25.7-33.7) 01/14/19 05:30 MCHC 34.1 g/dl (32.0-35.9) 01/14/19 05:30 RDW 16.0 % (11.9-15.9) H 01/14/19 05:30 Plt Count 225 K/MM3 (134-434) 01/14/19 05:30 MPV 9.3 fl (7.5-11.1) 01/14/19 05:30 Absolute Neuts (auto) 8.3 K/mm3 (1.5-8.0) H 01/14/19 05:30 Neutrophils % 73.1 % (42.8-82.8) 01/14/19 05:30 Lymphocytes % 13.8 % (8-40) D 01/14/19 05:30 Monocytes % 10.4 % (3.8-10.2) H 01/14/19 05:30 Eosinophils % 2.1 % (0-4.5) 01/14/19 05:30 Basophils % 0.6 % (0-2.0) 01/14/19 05:30 Nucleated RBC % 0 % (0-0) 01/14/19 05:30 PT with INR 11.90 SEC (9.7-13.0) 01/09/19 10:41 INR 1.01 (0.83-1.09) 01/09/19 10:41 Sodium 132 mmol/L (136-145) L 01/14/19 05:30 Potassium 4.6 mmol/L (3.5-5.1) 01/14/19 05:30 Plasma Potassium 4.9 mmol/L (3.5-5.2) 01/10/19 19:16 Chloride 101 mmol/L (98-107) 01/14/19 05:30 Carbon Dioxide 25 mmol/L (21-32) 01/14/19 05:30 Anion Gap 6 MMOL/L (8-16) L 01/14/19 05:30 BUN 23 mg/dL (7-18) H 01/14/19 05:30 Creatinine 1.2 mg/dL (0.55-1.3) 01/14/19 05:30 Creat Clearance w eGFR 62.86 (>60) 01/14/19 05:30 POC Glucometer 124 UNITS (80-120) 01/14/19 05:29 Random Glucose 124 mg/dL (74-106) H 01/14/19 05:30 Hemoglobin A1c % 6.0 % (4.2-6.3) 01/10/19 05:30 Serum Osmolality 291 mosm/kg (278-305) 01/10/19 19:16 Calcium 8.7 mg/dL (8.5-10.1) 01/14/19 05:30 Phosphorus 3.4 mg/dL (2.5-4.9) 01/12/19 05:30 Magnesium 2.1 mg/dL (1.8-2.4) 01/13/19 06:26 Total Bilirubin 7.6 mg/dL (0.2-1) H 01/14/19 05:30 Direct Bilirubin 5.1 mg/dL (0.0-0.2) H 01/09/19 10:41 AST 52 U/L (15-37) H 01/14/19 05:30 ALT 55 U/L (13-61) 01/14/19 05:30 Alkaline Phosphatase 312 U/L (45-117) H 01/14/19 05:30 Total Protein 7.0 g/dl (6.4-8.2) 01/14/19 05:30 Albumin 2.9 g/dl (3.4-5.0) L 01/14/19 05:30 Lipase 193 U/L (73-393) 01/09/19 10:41 TSH 0.43 uIU/ml (0.358-3.74) D 01/10/19 05:30 Urine Color Dk yellow 01/09/19 18:40 Urine Appearance Clear 01/09/19 18:40 Urine pH 5.0 (5.0-8.0) 01/09/19 18:40 Ur Specific [place] 1.048 (1.010-1.035) H 01/09/19 18:40 Urine Protein Negative (NEGATIVE) 01/09/19 18:40 Urine Glucose (UA) Negative (NEGATIVE) 01/09/19 18:40 Urine Ketones Negative (NEGATIVE) 01/09/19 18:40 Urine Blood Negative (NEGATIVE) 01/09/19 18:40 Urine Nitrite Negative (NEGATIVE) 01/09/19 18:40 Urine Bilirubin Small (NEGATIVE) 01/09/19 18:40 Urine Urobilinogen 0.2 mg/dL (0.2-1.0) 01/09/19 18:40 Ur Leukocyte Esterase N (NEGATIVE) 01/09/19 18:40 Urine WBC (Auto) 0 /hpf (0-5) 01/09/19 10:41 Urine RBC (Auto) 2 /hpf (0-4) 01/09/19 10:41 Urine Casts (Auto) 1 /hpf (0-8) 01/09/19 10:41 U Epithel Cells (Auto) 0.1 /HPF (0-5) 01/09/19 10:41 Urine Bacteria (Auto) 0 /hpf (NEGATIVE) 01/09/19 10:41 Urine Osmolality 643 mosm/kg (300-900) 01/10/19 11:30 Ur Random Sodium 107 MMOL/L (40-220) 01/10/19 11:30 Ur Random Potassium 69.6 MMOL/L (25-125) 01/10/19 11:30 Ur Random Chloride 160 MMOL/L (110-250) 01/10/19 11:30 Microbiology 01/09/19 10:41 Urine - Urine Clean Catch Urine Culture - Final NO GROWTH OBTAINED Vital Signs Temp 99.1 F 01/14/19 09:42 Pulse 85 01/14/19 09:42 Resp 18 01/14/19 09:42 BP 122/78 01/14/19 09:42 Pulse Ox 98 01/13/19 20:01 Intake & Output 01/13/19 01/13/19 01/14/19 11:59 23:59 11:59 Intake Total 720 120 Balance 720 120 Intake: Oral 720 120 Other: Voiding Method Toilet Toilet Toilet # Unmeasured Voids Void 1 1 Condition: Fair - Instructions Referrals: Jb Herrera MD [Staff Physician] - Neo Kc MD [Staff Physician] - Disposition: HOME - Home Medications Comprehensive Discharge Medication List: Ambulatory Orders Unobtainable 01/09/19
--- NOTE | 2019-01-14 11:28 | PN ---
Progress Note (short form) - Note Progress Note: Renal follow up for Hyperkalemia Pt seen and examined at the bedside no acute complaints denies any sob, cp, abd pain making urine for discharge today Vital Signs Temperature 99.1 F 01/14/19 09:42 Pulse Rate 85 01/14/19 09:42 Respiratory Rate 18 01/14/19 09:42 Blood Pressure 122/78 01/14/19 09:42 O2 Sat by Pulse Oximetry (%) 98 01/13/19 20:01 Intake & Output 01/11/19 01/12/19 01/13/19 01/14/19 23:59 23:59 23:59 23:59 Intake Total 10 250 720 120 Balance 10 250 720 120 Weight 79.832 kg NAD RRR, no M/R CTA no rales or wheeze soft NT/ND, Abd scar present No LE edema, clubbing or cyanosis CBC, BMP 01/14/19 05:30 01/14/19 05:30 Current Medications Heparin Sodium (Porcine) (Heparin -) 5,000 unit SQ BID JHOAN Last Admin: 01/14/19 09:58 Dose: 5,000 unit Insulin Aspart (Novolog Vial Sliding Scale -) 1 vial SQ ACHS [facility]; Protocol Last Admin: 01/14/19 06:02 Dose: Not Given Ondansetron HCl (Zofran Injection) 4 mg IVPUSH Q6H PRN PRN Reason: NAUSEA AND/OR VOMITING Last Admin: 01/10/19 17:23 Dose: 4 mg 53 year old gentleman with hx of Metastatic Gallbladder carcinoma, DM who presented with progressive jaundice and noted to have potassium of 5.9 and Na of 129. #Hyperkalemia (imporved on low potassium diet) #Hyponatreia likely due to fluid retention in setting of liver mets #GB cancer with mets #Jaundice #DM Serum K is improved and stable information packet provided to the patient regarding maintaining a low potassium diet as an outpatient. High potassium foods reviewed with the patient. Serum na is stable Pt should follow up with PMD and have repeat labs done in 1 week Oncology follow up as an outpatient. Janusz Ulrihc DO
== END 2019-01-14 12:21 | disposition home or self-care (01) | DRG 436 ==
LOC: JER 08:06 → JERBED 13:33 → J4W 16:58
PROVIDERS: ADMIT Student in an Organized Health Care Education/Training Program; ATTEND Student in an Organized Health Care Education/Training Program
DX: C78.7 Secondary malignant neoplasm of liver and intrahepatic bile duct (principal); R17 Unspecified jaundice; E87.1 Hypo-osmolality and hyponatremia; C23 Malignant neoplasm of gallbladder; E87.5 Hyperkalemia; E11.9 Type 2 diabetes mellitus without complications; I10 Essential (primary) hypertension; E78.5 Hyperlipidemia, unspecified
CPT/HCPCS: 36415; 70450-TC; 71045-TC-FY; 71260-TC; 74177-TC; 74182-TC; 80048; 80053; 81003; 82247; 82248; 82436; 82962; 83036; 83690; 83735; 83930; 83935; 84100; 84132; 84133; 84300; 84443; 85025; 85027; 85610; 87086; 90670; 90688; 93005; 93010; 99285-25; G0008; G0009; J1644; J7030